=== PATIENT | female | born 1955 | race Caucasian/White ===

== ENCOUNTER 2017-09-07 12:36 | Observation (INO) | payer OTHER ==
[~2017-09-07] VITALS: Ht 152.4 cm; Wt 99.8 kg
[~2017-09-07 12:36] MED LIST: AMLODIPINE10 MG PO; ASPIRIN EC325 MG PO; BENICAR HCT 251 TAB PO; CRESTOR40 M2 PO; CYCLOBENZAPRINE10 M2 PO; FENOFIBRATE145 M1 PO; FIORINAL 325 M1 CAP PO; FLEXERIL10 MG PO; GOOD SENSE ASP325 MG PO; HEARTBURN RELI150 MG PO; HYDROXYCHLOROQ200 M1 PO; ISOSORBIDE MONO30 MG PO; LEVOTHYROXINE100 MC1 PO; MEDROL DOSEPAK1 PAC PO; METFORMIN HCL500 MG PO; METOPROLOL TAR100 MG PO; METOPROLOL TART50 MG PO; NEURONTIN300 M1 PO; OXYCODONE HYDRO10 M1 PO; PERCOCET 325 MG1 TAB PO; PREDNISONE 1 MG1 MG PO; VALIUM5 M1 PO; VALIUM5 MG PO; VALSARTAN320 MG PO; ZETIA10 M1 PO
--- NOTE | 2017-09-07 13:49 | ED EYE COMPLAINT ---
History of Present Illness General Chief Complaint: General Adult Stated Complaint: SIB DR TOLENTINO FOR ADMISSION FOR ?STROKE Source: patient, family, old records, PCP Exam Limitations: no limitations Vital Signs & Intake/Output Vital Signs & Intake/Output Vital Signs Date Time Temp Pulse Resp B/P B/P Pulse O2 O2 Flow FiO2 Mean Ox Delivery Rate 09/07 1248 97.5 85 20 164/82 96 Allergies Coded Allergies: Iodinated Contrast- Oral and IV Dye (IODINATED CONTRAST MEDIA - IV DYE) (HIVES ALL OVER BODY AND SOB PER PT 10/03/15) duloxetine (From CYMBALTA) (NAUSEA 09/07/17) potassium (Intermediate, THROUGH IV, PT REPORTS BURINING GOING THRU IV ) adhesive tape (Mild, REDNESS/IRRITATION AT SITE 10/03/15) Reconcile Medications Amlodipine Besylate 10 MG TABLET 1 TAB PO DAILY HEART (Reported) Aspirin (Aspirin*) 81 MG TAB.CHEW 1 TAB PO DAILY HEART (Reported) Bisacodyl (Dulcolax) 5 MG TABLET.DR 1 TAB PO DAILY contipation (Reported) Cholecalciferol (Vitamin D3) (Vitamin D) 1,000 UNIT TABLET 2 TAB PO DAILY supplement (Reported) Clobetasol Propionate 0.05 % CREAM..G. 1 RITCHIE TOP BID PRN skin (Reported) apply to affected area(s) Ezetimibe (Zetia) 10 MG TABLET 1 TAB PO DAILY hlp (Reported) Fenofibrate Nanocrystallized (Fenofibrate) 145 MG TABLET 1 TAB PO DAILY hlp ( Reported) Gabapentin (Neurontin) 300 MG CAPSULE 2 CAP PO TID pain (Reported) Levothyroxine Sodium 100 MCG TABLET 1 TAB PO DAILY thyriod (Reported) Melatonin 5 MG TABLET 1 TAB PO AT BEDTIME PRN insomnia (Reported) Metoprolol Tartrate (Lopressor) 50 MG TABLET 1 TAB PO BID HEART (Reported) Morphine Sulfate (Ms Contin) 30 MG TABLET.ER 1 TAB PO BIDP pain (Reported) Oxycodone HCl 10 MG TABLET 1 TAB PO 4XDP pain (Reported) Ranitidine HCl (Heartburn Relief) 150 MG TABLET 1 TAB PO DAILY PRN heartburn (Reported) Rosuvastatin Calcium (Crestor) 40 MG TABLET 1 TAB PO DAILY HEART (Reported) Silver Sulfadiazine (Silvadene) 1 % CREAM..G. 1 RITCHIE TOP BID skin (Reported) apply to affected area(s) Valsartan 320 MG TABLET 1 TAB PO DAILY HEART (Reported) Triage Note: PER PT SYMPTOMS STARTED LAST WEEK MAYBE MONDAY WENT TO SEE EYE DR AND MENTIONED DIFF SEEING AT TOP OF RT EYE AND SL OUT OF BOTTOM OF RT EYE, SENT TO RETINAL SPECIALIST, WHO CALLED DR TOLENTINO, PT WAS THEN CONTACTED TO COME IN FOR ADMISSION. Triage Nurses Notes Reviewed? yes HPI: On patient noticed that she was seeing a great cloud in the superior aspect of her right eye. Patient cannot see anything through that cloud. Patient had an appointment with her eye doctor so she waited until that appointment and then saw him. He Center to a retinal specialist. Patient was seen by the retinal specialist today and she was told that she had a stroke and that she needed to see her primary care physician. Patient went to Dr. Tolentino and Dr. Tolentino Center in to the emergency room for admission for further workup for this stroke. Patient has no other neurological findings. She denies any weakness or numbness. There is no difficulty walking or speaking. She states that she occasionally has headaches but that is chronic for her the headaches have not changed in intensity or location. She does not currently have a headache. Past History Travel History Traveled to [place] past 21 day No Medical History Any Pertinent Medical History? see below for history Neurological: NONE EENT: NONE Cardiovascular: CAD (S/P 2 stents), hypertension, hyperlipidemia Respiratory: NONE Gastrointestinal: NONE Hepatic: NONE Renal: NONE Musculoskeletal: chronic back pain, disk herniation Psychiatric: NONE Endocrine: hypothyroidism, BOARDERLINE DM Other Medical Hx: Obesity History of MRSA: No History of VRE: No History of CDIFF: No Surgical History Surgical History: non-contributory Psychosocial History Who do you live with Spouse Services at Home None What is your primary language Citizen Of [place] Tobacco Use: Never used ETOH Use: denies use Illicit Drug Use: denies illicit drug use Family History Hx Contributory? No Review of Systems Review of Systems Constitutional: Reports: no symptoms. Eyes: Reports: see HPI, blurred vision. Ear: Reports: no symptoms. Nose: Reports: no symptoms. Mouth: Reports: no symptoms. Throat: Reports: no symptoms. Respiratory: Reports: no symptoms. Cardiovascular: Reports: no symptoms. GI: Reports: no symptoms. Genitourinary: Reports: no symptoms. Musculoskeletal: Reports: no symptoms. Skin: Reports: no symptoms. Neurological/Psychological: Reports: no symptoms. Hematologic/Endocrine: Reports: no symptoms. Immunologic/Allergic: Reports: no symptoms. All Other Systems: Reviewed and Negative Physical Exam General Appearance: well developed/nourished, mild distress General Inspection: normal inspection Eyelid: normal inspection Conjunctiva/Sclera: normal inspection EOM: intact Pupil: normal accommodation, normal pupil, PERRL General Inspection: normal inspection Conjunctiva/Sclera: normal inspection EOM: intact Pupil: normal accommodation, normal pupil, PERRL Physical Exam Head: atraumatic Nose: normal inspection Mouth/Throat: normal mouth inspection Neck: normal inspection, supple Cardiovascular/Respiratory: normal breath sounds, regular rate/rhythm Neurologic/Psych: awake, alert, oriented x 3, normal mood/affect Skin: intact, normal color, warm/dry Progress Differential Diagnosis: retinal art./v. occlusion, CVA Plan of Care: Orders Procedure Date/time Status Heart Healthy Diet 09/08 B Active LIPID PANEL 09/08 06 Active CBC WITHOUT DIFFERENTIAL 09/08 06 Active BASIC ELECTROLYTES PLUS BUN&CR 09/08 06 Active Heart Healthy Diet 09/07 D Complete Intake & Output 09/07 1655 Active Pathway - chart 09/07 1629 Active House Staff 09/07 1629 Active Code Status 09/07 1629 Active ECHOCARDIOGRAM 09/07 1557 Active [id number] DOPPLER 09/07 1554 Active Patient Data 09/[address] in observation 09/07 1440 Active ED Holding Orders 09/07 1440 Active Vital Signs 09/07 1440 Active Code Status 09/07 1440 Complete URINALYSIS 09/07 1252 Active PARTIAL THROMBOPLASTIN TIME 09/07 1252 Active PROTHROMBIN TIME 09/07 1252 Active COMPREHENSIVE METABOLIC PANEL 09/07 1252 Complete CBC WITHOUT DIFFERENTIAL 09/07 1252 Complete EKG 09/07 1252 Active VTE Mechanical Prophylaxis 09/07 UNK Active Current Medications Sig/Vanesa Start time Last Medication Dose Stop Time Status Admin Aspirin 81 MG DAILY 09/08 1000 AC (Aspirin) Enoxaparin Sodium 40 MG DAILY 09/08 1000 AC (Lovenox) Ezetimibe 10 MG DAILY 09/08 1000 AC (Zetia) Famotidine 20 MG DAILY 09/08 1000 AC (Pepcid) Fenofibrate 145 MG DAILY 09/08 1000 AC (Tricor) Levothyroxine Sodium 0.1 MG DAILY AC 09/08 0700 AC (Synthroid) Gabapentin 600 MG TID 09/07 2199 AC (Neurontin) Metoprolol Tartrate 50 MG BID 09/07 2199 AC (Lopressor) Morphine Sulfate 30 MG BID 09/07 2199 AC (Ms Contin) Oxycodone HCl 10 MG Q6 09/07 1800 AC (Roxicodone) Atorvastatin Calcium 80 MG 1700 09/07 170 AC (Lipitor) Clopidogrel Bisulfate 75 MG DAILY 09/07 161 AC (Plavix) Laboratory Tests 09/07/17 1403: Anion Gap 18 H, Estimated GFR > 60, BUN/Creatinine Ratio 22.2, Glucose 72, Calcium 10.7 H, Total Bilirubin 0.5, AST 50 H, ALT 31, Alkaline Phosphatase 87 , Total Protein 8.0, Albumin 4.7, Globulin 3.3, Albumin/Globulin Ratio 1.4, CBC w Diff NO MAN DIFF REQ, RBC 4.70, MCV 88.4, MCH 28.8, MCHC 32.5 L, RDW 14.2, MPV 9.0, Gran % 70.2, Lymphocytes % 20.0 L, Monocytes % 5.0, Eosinophils % 4.4, Basophils % 0.4, Absolute Granulocytes 4.0, Absolute Lymphocytes 1.1 L, Absolute Monocytes 0.3, Absolute Eosinophils 0.2, Absolute Basophils 0 Diagnostic Imaging: Viewed by Me: Radiology Read, CT Scan. Discussed w/RAD: Radiology Read, CT Scan. Radiology Impression: PATIENT: FREDDY CHAPA PRESENT AGE: 62 PATIENT ACCOUNT NO: [id number] : 54 LOCATION: [facility] ORDERING PHYSICIAN: Tracey Saldivar MD SERVICE DATE: 09/07/17125 EXAM TYPE: CAT - CT HEAD WO IV CONTRAST EXAMINATION: CT HEAD WITHOUT CONTRAST CLINICAL INFORMATION: Possible retinal artery occlusion for one week. Possible CVA. COMPARISON: MRI scan of the brain 12/31/2014. TECHNIQUE: Contiguous axial imaging was performed from the skull base to vertex without intravenous administration of contrast. DLP: 611.74 mGy-cm FINDINGS: There is no evidence of acute intracranial hemorrhage or territorial infarction. No abnormal mass effect or midline shift is seen. Gonzalez to white matter differentiation is well preserved. No extra-axial fluid collections are identified. The ventricles are normal in size. There are areas of low attenuation in the deep white matter which are most consistent with chronic microvascular ischemic changes. There are atheromatous calcifications of the cavernous internal carotid arteries. The orbits appear unremarkable on the available images. The osseous structures and soft tissues are normal. The mastoid air cells and visualized portions of the paranasal sinuses are well aerated. IMPRESSION: 1. There are no acute bleeds or territorial infarcts. 2. There are chronic microvascular ischemic changes. DICTATED BY: Trenton Jose MD DATE/TIME DICTATED:09/07/171422 RELAY SHOP SUPERVISOR :FILIPPO DATE/TIME TRANSCRIBED:09/07/171422 CONFIDENTIAL, DO NOT COPY WITHOUT APPROPRIATE AUTHORIZATION. <Electronically signed in Other Vendor System> SIGNED BY: Trenton Jose MD 09/07/17 1435 Initial ED EKG: NSR, no ST T wave changes Prior EKG: unchanged Departure Departure Disposition: STILL A PATIENT Condition: Stable Clinical Impression Primary Impression: CVA (cerebral vascular accident) Referrals: Noah Tolentino MD (PCP/Family) Departure Forms: Customer Survey General Discharge Information Observation Note Spoke With: Noah Tolentino MD Physician Advisor Notified: JESSICA MYLES,TRACEY Antoine Place Patient In: Non-ED OBS Care Area Rationale for Observation: My rational for observation is as follows [MRI, CAROTID ULTRASOUND, NEUROCONSULT ].
[2017-09-07 14:22] LABS: ABSOLUTE BASOPHIL COUNT 0 /CUMM (0.0-0.2); ABSOLUTE EOSINOPHIL COUNT 0.2 /CUMM (0.0-0.7); ABSOLUTE LYMPH COUNT 1.1 /CUMM (1.2-3.4); ABSOLUTE MONOCYTE COUNT 0.3 /CUMM (0.10-0.60); BASOPHIL % 0.4 % (0.0-2.0); EOSINOPHIL % 4.4 % (0-5); GRANULOCYTE % 70.2 % (42.2-75.2); HEMATOCRIT 41.5 % (37-47); MEAN CORPUSCULAR HGB 28.8 PG (27.0-31.0); MEAN CORPUSCULAR HGB CONC 32.5 G/DL (33.0-37.0); MEAN CORPUSCULAR VOLUME 88.4 FL (81.0-99.0); PLATELET COUNT 202 /CUMM (130-400); RBC DISTRIBUTION WIDTH 14.2 % (11.5-14.5); WHITE BLOOD CELL COUNT 5.6 /CUMM (4.8-10.8)
--- NOTE | 2017-09-07 14:33 | CT SCAN REPORT ---
EXAMINATION: CT HEAD WITHOUT CONTRAST CLINICAL INFORMATION: Possible retinal artery occlusion for one week. Possible CVA. COMPARISON: MRI scan of the brain 12/31/2014. TECHNIQUE: Contiguous axial imaging was performed from the skull base to vertex without intravenous administration of contrast. DLP: 611.74 mGy-cm FINDINGS: There is no evidence of acute intracranial hemorrhage or territorial infarction. No abnormal mass effect or midline shift is seen. Gonzalez to white matter differentiation is well preserved. No extra-axial fluid collections are identified. The ventricles are normal in size. There are areas of low attenuation in the deep white matter which are most consistent with chronic microvascular ischemic changes. There are atheromatous calcifications of the cavernous internal carotid arteries. The orbits appear unremarkable on the available images. The osseous structures and soft tissues are normal. The mastoid air cells and visualized portions of the paranasal sinuses are well aerated. IMPRESSION: 1. There are no acute bleeds or territorial infarcts. 2. There are chronic microvascular ischemic changes.
--- NOTE | 2017-09-07 15:00 | History & Physical ---
Glenn Colin MD,Ami 09/07/17 1500: General Information and HPI MD Statement: I have seen and personally examined FREDDY CHAPA and documented this H&P. The patient is a 62 year old F who presented with a patient stated chief complaint of [change in vision]. Source of Information: patient, family Exam Limitations: no limitations History of Present Illness: Patient is 62 y F with PMH of CAD (complicated with cardiac arrest 12 y ago, s/p stent placement), HTN, HLIP, fibromyalgia, chronic back pain, disk herniation, hypothyrodism, h/o borderline DM (not on any medication) was referred from Dr Scales office for evaluation of vision change. Patient was alert and oriented and was interviewed for history taking. Briefly patient was in usual state of health until last week that she had seen change. Vision change is like a dejesus colored cloud blocking sight and is in superior, internal aspect of right eye as well as a smaller round shape cheesh-na in the lower lateral side. She did not look for immediate medical attention as she had appointment with her eye doctor earlier this week. She was referred to retinal specialist today, she was told she had a stroke and needed to visit her PCP, Dr Scales, who finally sent patient to ED for further evaluation. Patient denied any other neurological symptoms, chest pain, palpitation, heart racing, incontinence or any other symptoms. Patient is pretty independent in activities of daily life. She quited smoking (after communication with Dr Scales she recently quited smoking after several years) or alcohol intake. Patient reported allergy to IV contrast (iodinated) after which she developed hives and shortness of breathing. Allergies/Medications Allergies: Coded Allergies: Iodinated Contrast- Oral and IV Dye (IODINATED CONTRAST MEDIA - IV DYE) (HIVES ALL OVER BODY AND SOB PER PT 10/03/15) duloxetine (From CYMBALTA) (NAUSEA 09/07/17) potassium (Intermediate, THROUGH IV, PT REPORTS BURINING GOING THRU IV ) adhesive tape (Mild, REDNESS/IRRITATION AT SITE 10/03/15) Home Med list Amlodipine Besylate 10 MG TABLET 1 TAB PO DAILY HEART (Reported) Aspirin (Aspirin*) 81 MG TAB.CHEW 1 TAB PO DAILY HEART (Reported) Bisacodyl (Dulcolax) 5 MG TABLET.DR 1 TAB PO DAILY contipation (Reported) Cholecalciferol (Vitamin D3) (Vitamin D) 1,000 UNIT TABLET 2 TAB PO DAILY supplement (Reported) Clobetasol Propionate 0.05 % CREAM..G. 1 RITCHIE TOP BID PRN skin (Reported) apply to affected area(s) Clopidogrel Bisulfate (Plavix) 75 MG TABLET 75 MG PO DAILY STROKE . Ezetimibe (Zetia) 10 MG TABLET 1 TAB PO DAILY hlp (Reported) Fenofibrate Nanocrystallized (Fenofibrate) 145 MG TABLET 1 TAB PO DAILY hlp ( Reported) Gabapentin (Neurontin) 300 MG CAPSULE 2 CAP PO TID pain (Reported) Levothyroxine Sodium 100 MCG TABLET 1 TAB PO DAILY thyriod (Reported) Melatonin 5 MG TABLET 1 TAB PO AT BEDTIME PRN insomnia (Reported) Metoprolol Tartrate (Lopressor) 50 MG TABLET 1 TAB PO BID HEART (Reported) Morphine Sulfate (Ms Contin) 30 MG TABLET.ER 1 TAB PO BIDP pain (Reported) Oxycodone HCl 10 MG TABLET 1 TAB PO 4XDP pain (Reported) Ranitidine HCl (Heartburn Relief) 150 MG TABLET 1 TAB PO DAILY PRN heartburn (Reported) Rosuvastatin Calcium (Crestor) 40 MG TABLET 1 TAB PO DAILY HEART (Reported) Silver Sulfadiazine (Silvadene) 1 % CREAM..G. 1 RITCHIE TOP BID skin (Reported) apply to affected area(s) Valsartan 320 MG TABLET 1 TAB PO DAILY HEART (Reported) Past History Travel History Traveled to [place] past 21 day No Medical History Neurological: NONE EENT: NONE Cardiovascular: CAD (S/P 2 stents), hypertension, hyperlipidemia Respiratory: NONE Gastrointestinal: NONE Hepatic: NONE Renal: NONE Musculoskeletal: chronic back pain, disk herniation Psychiatric: NONE Endocrine: hypothyroidism, BOARDERLINE DM Other Medical Hx: Obesity History of MRSA: No History of VRE: No History of CDIFF: No Surgical History Surgical History: non-contributory Past Family/Social History Psychosocial History Services at Home: None ETOH Use: denies use Illicit Drug Use: denies illicit drug use Functional Ability ADLs Independent: dressing, eating, toileting, bathing. Ambulation: cane IADLs Independent: shopping, housework, finances, food prep, telephone, transportation , medication admin. Review of Systems Review of Systems Constitutional: Reports: see HPI. Exam & Diagnostic Data Last 24 Hrs of Vital Signs/I&O Vital Signs Date Time Temp Pulse Resp B/P B/P Pulse O2 O2 Flow FiO2 Mean Ox Delivery Rate 09/07 1802 148/78 09/07 1728 79 18 187/99 96 Room Air 09/07 1248 97.5 85 20 164/82 96 Physical Exam General Appearance Alert, Oriented X3, Cooperative, No Acute Distress, Obese Skin No Significant Lesion Skin Temp/Moisture Exam: Warm/Dry Sepsis Skin Exam (color): Normal for Ethnicity HEENT Atraumatic, EOMI, Mucous Membr. moist/pink, Could see arterial wall in lower and upper retina suggesting occlusion Neck No JVD Cardiovascular Regular Rate, Normal S1, Normal S2 Lungs Clear to Auscultation Abdomen Soft, No Tenderness Neurological Strength at 5/5 X4 Ext, Cranial Nerves 3-12 NL, Reflexes 2+, pupils reactive to light Extremities No Cyanosis, No Edema Last 24 Hrs of Labs/Beau: Laboratory Tests 09/07/17 1403: Anion Gap 18 H, Estimated GFR > 60, BUN/Creatinine Ratio 22.2, Glucose 72, Calcium 10.7 H, Total Bilirubin 0.5, AST 50 H, ALT 31, Alkaline Phosphatase 87 , Total Protein 8.0, Albumin 4.7, Globulin 3.3, Albumin/Globulin Ratio 1.4, CBC w Diff NO MAN DIFF REQ, RBC 4.70, MCV 88.4, MCH 28.8, MCHC 32.5 L, RDW 14.2, MPV 9.0, Gran % 70.2, Lymphocytes % 20.0 L, Monocytes % 5.0, Eosinophils % 4.4, Basophils % 0.4, Absolute Granulocytes 4.0, Absolute Lymphocytes 1.1 L, Absolute Monocytes 0.3, Absolute Eosinophils 0.2, Absolute Basophils 0 Assessment/Plan Assessment: Patient is 62 y F referred from Dr Scales office evaluation of vision change Obese, history of CAD, no neurologic symptoms PMH of CAD (complicated with cardiac arrest 12 y ago, s/p stent placement), HTN, HLIP, fibromyalgia, chronic back pain, disk herniation, hypothyrodism, h/o borderline DM (not on any medication) VS, Ph Ex at admission: BP 164/82, [place] 85, no fever other insignificant Labs at admission: CBCs insignificant, BEP insignificant Imagings at admission: CXR: No evidence of acute pulmonary disease. Head CT; 1. There are no acute bleeds or territorial infarcts. 2. There are chronic microvascular ischemic changes. Carotid doppler: 1. The right internal carotid artery shows no hemodynamically significant stenosis. 2. The left internal carotid artery shows no hemodynamically significant stenosis. 3. Both vertebral arteries are patent and show antegrade flow. 4. No significant change since 12/30/2014. Head MRI; 1. There are no acute bleeds or infarcts. 2. There are chronic microvascular ischemic changes. Patient was admitted to telemetry floor for management of following conditions: Vision change Branch Retinal artery occlusion/rule out CVA Despite patient had examination suggestive of MARIA but also has several patient has several risk factors for stroke and we will rule out. MRI rule out any ischemic event. Arthrosclerotic disease of carotid artery is the most common reason for retinal 3 occlusion and we performed a carotid Doppler which ruled out significant occlusion. We will do echocardiography to rule out cardiogenic embolic source. - admit to tele floor - neuro checks - vital sign - hold off neuro consult - Cardio consult placed with Dr García - Echo tomorrow Chronic medical conditions: CAD, hypertension, back pain, fibromyalgia, hypothyroidism, borderline DM - Continue home medication - Hb a1c FC heart healthy diet DVt ppx; PHARMACOLOGICAL AND ALPS As Ranked By This Provider Problem List: 1. Vision changes Core Measures/Misc (04/16) Acute Coronary Syndrome ACS Diagnosis: No Congestive Heart Failure Congestive Heart Failure Diagnosis No Cerebrovascular Accident CVA/TIA Diagnosis: No VTE (View Protocol) VTE Risk Factors Age>40 No Mechanical VTE Prophylaxis d/t N/A MechProphylax Ordered No VTE Pharm Prophylaxis d/t NA PharmProphylax ordered Sepsis (View protocol) Sepsis Present: No Jamie Cleary 09/07/17 1700: Resident Review Statement Resident Statement: examined this patient, discussed with marketing pr intern, agreed with marketing pr intern, reviewed images, amended to note Other Findings: patient 62 year old lady with pmh CAD ( [place] with cardiac arrest )12 years ago with 2 stents, hypertension, hyperlipidemia, fibromyalgia, chronic back pain this herniation on narcotics, hypothyroidism, borderline diabetes? Came to the hospital from Dr. Scales's office with chief complaint of vision changes in the right eye cloudy vision. Patient reports that she started noticing cloudy vision on upper right side of her vision mostly on the right eye starting on without any other nausea , vomiting, dizziness, fevers, chills, shakiness, ataxia tingling and numbness. patient does have history of headaches which is chronic. Patient saw her commodity management specialist and retinal specialist today and informed that she had a stroke in her eye and she went to Dr. Scales's office and was referred to here. No chest pain, coughing, recent sick contacts. hx of long time smoker quit 6 months ago vital signs stable with mild elevated SBP Alert and oriented HEENT Atraumatic, PERRL, EOMI Neck Supple, No JVD, No thryomegaly Cardiovascular Regular Rate, Normal S1, Normal S2 Lungs Clear to Auscultation, Normal Air Movement Abdomen Normal Bowel Sounds, Soft, Neurological Normal Speech, Strength at 5/5 X4 Ext, Extremities +1 bilateral edema in legs labs : ag 18, bun 20 ca 10.7 ast 50 MRI of the head, CT of the head, chest x-ray, carotid ultrasound are unremarkable for acute findings assessment renital stroke (artry occultion) hx of HLP hx of back pain on narcotics hx of hypothryoidisim hx of HTN plan obs in telemetry echo in AM with Dr. García check [id number] Continue medications for hyperlipidemia, hypertension, hypothyroidism, back pain c/w aspirin and plavix Patient has chronic elevated calcium Full code, DVT prophylaxis Lovenox and mechanical, Oxycodone for pain, heart healthy diet.
[2017-09-07] MEDS ORDERED: LOPRESSOR50 M1 PO (15:29)
[2017-09-07] MEDS ORDERED: AMLODIPINE BESY10 M1 PO (15:29)
[2017-09-07] MEDS ORDERED: ASPIRIN81 M4 PO (15:30)
[2017-09-07] MEDS ORDERED: VALSARTAN320 M1 PO (15:30)
--- NOTE | 2017-09-07 15:31 | RADIOLOGY REPORT ---
EXAMINATION: XR CHEST CLINICAL INFORMATION: Cough COMPARISON: Multiple priors, most recent from 01/20/2016. TECHNIQUE: 2 views of the chest were obtained. FINDINGS: No focal airspace opacification. Lungs are adequately expanded. Mildly prominent interstitial markings are also seen previously. No pleural effusion or pneumothorax. The cardiomediastinal silhouette is unchanged without cardiomegaly. Partially imaged lumbar fusion hardware again seen. Multilevel degenerative changes of the thoracic spine noted. Partially imaged gastric lap band tubing seen on the lateral view. IMPRESSION: No evidence of acute pulmonary disease.
[2017-09-07] MEDS ORDERED: VITAMIN D1000 UNIT PO (15:40)
[2017-09-07] MEDS ORDERED: CLOBETASOL PROP15 GM TOP (15:42)
[2017-09-07] MEDS ORDERED: MS CONTIN30 M1 PO (15:42)
[2017-09-07] MEDS ORDERED: MELATONIN5 M7 PO (15:42)
[2017-09-07] MEDS ORDERED: OXYCODONE HCL10 M2 PO (15:43)
[2017-09-07] MEDS ORDERED: SILVADENE20 GM TOP (15:43)
[2017-09-07] MEDS ORDERED: DULCOLAX5 M1 PO (15:44)
--- NOTE | 2017-09-07 16:49 | MRI REPORT ---
EXAMINATION: MR BRAIN WITHOUT CONTRAST CLINICAL INFORMATION: Blurry vision. Assess for stroke. COMPARISON: CT scan of the head obtained earlier 09/07/2017 and MRI scan of the brain 12/31/2014. TECHNIQUE: MRI of the brain without contrast was obtained using routine sequences. FINDINGS: No diffusion abnormalities are identified to suggest an acute or subacute infarct. No mass effect or midline shift is seen. The ventricles are normal in size. There are scattered foci of T2 and FLAIR hyperintensity in the periventricular and subcortical white matter and in the reuben, consistent with chronic microvascular ischemic disease, similar compared to the prior study. No extra-axial fluid collections are seen. The brainstem and cerebellum are normal. No pathologic magnetic susceptibility artifact is identified on the gradient refocused acquisition. The craniovertebral junction, marrow signal, and midline structures are normal. The major intracranial flow-voids at the level of the kenait[place] of [place] are preserved. The dural venous sinus flow-voids are maintained. The mastoid air cells and paranasal sinuses are well-aerated. IMPRESSION: 1. There are no acute bleeds or infarcts. 2. There are chronic microvascular ischemic changes.
--- NOTE | 2017-09-07 17:17 | ULTRASOUND REPORT ---
EXAMINATION: BILATERAL DUPLEX CAROTID ULTRASOUND CLINICAL INDICATION: Blurry vision. COMPARISON: Carotid ultrasound done on 12/30/2014. TECHNIQUE: TECHNIQUE: Real-time ultrasound and Doppler techniques (integrating B-mode 2D vascular images, Doppler spectral analysis and color flow Doppler imaging) were utilized to interrogate the extracranial carotid and vertebral arteries bilaterally. The degree of stenosis determined by criteria similar to NASCET. . FINDINGS: On the RIGHT, there is focal atherosclerotic plaques are noted within the distal right common carotid artery and origin of both right internal and external carotid arteries.In the distal CCA, the peak systolic velocity is 61 cm/sec. In the proximal ICA, the peak systolic velocity is 88.5 cm/sec, and the end diastolic velocity is 25 cm/sec. The ICA/CCA ratio is 1.45. On the LEFT, there is focal atherosclerotic plaques are noted at distal common carotid, and origin, proximal part of both internal and external carotid arteries.In the distal CCA, the peak systolic velocity is 96 cm/sec. In the proximal ICA, the peak systolic velocity is 99 cm/sec, and the end diastolic velocity is 30 cm/sec. The ICA/CCA ratio is 1.03. The vertebral arteries show antegrade flow with normal waveforms bilaterally. No significant change since prior study. IMPRESSION: 1. The right internal carotid artery shows no hemodynamically significant stenosis. 2. The left internal carotid artery shows no hemodynamically significant stenosis. 3. Both vertebral arteries are patent and show antegrade flow. 4. No significant change since 12/30/2014.
--- NOTE | 2017-09-07 18:41 | PN- Att Addend ---
Attending Addendum Attending Brief Note Full note as per interns note This is a 62-year-old lady with history of ischemic heart disease with previous stent with no active ischemic heart, hypertension, hyperlipidemia, morbid obesity, hypothyroidism on appropriate supplementation, previous history of multiple lumbar surgeries with fusion with chronic pain syndrome in the past with severe backache, previous history of [place] with V. fib arrest now with no active coronary issues, now comes in with * Acute stroke with retinal artery branch occlusion consistant with an embolic stroke * Previous History of significant smoking with all the risks for atheroembolic disease * IHD with previous stents with previous vifib arrest, now stable and recent stress test neg for active ischemia * CHronic low back pain with severe lumbar disc disease with multiple surg in the past on high dose narcotics now stable * Hypothyroidism/hypertension/hyperlipidemia appears to be stable * Ischemic heart disease appears to be stable * SIg Lizeth on cpap and compliant * Morbid obesity * Small airway disease * Rule out inflammatory process * OSteopenia with vit d def with previous work up for hypercalcemia neg with normal pth REC Admit to rule out anyother process like afib Neuro eval frequently TElemetry Cont all out pt meds Start plavix with low dose asprin Keep bp around 10 Start arb (pt on high dose arb aswell at home) Rule out afib will follow
[2017-09-07 18:46] VITALS: BP 146/82
[2017-09-07 23:00] VITALS: BP 140/78
[2017-09-08 06:30] VITALS: BP 152/74
--- NOTE | 2017-09-08 07:44 | ECHOCARDIOGRAM REPORT ---
FREDDY CHAPA Age: 62 : 1955 Gender: F Exam Date: 09/07/2017 19:04 Exam Location: [place] Ht (in): 65 Wt (lb): 140 BSA: 1.71 BP: 146 / 82 Ordering Physician: Jamie Cleary MD Referring Physician: Dex García MD Technologist: Marina Walker [facility] Room Number: 179-01 Indications: STROKE Rhythm: Sinus Technical Quality: Fair FINDINGS Left Ventricle Normal size left ventricle. Left ventricular wall thickness increased. Normal left ventricular ejection fraction estimated at 60-65%. Right Ventricle Right ventricle not well visualized, grossly normal. Right Atrium Normal right atrial size. Left Atrium Left atrial dilatation. Mitral Valve Mitral valve thickened. Moderate mitral annular calcification. Trace to mild mitral regurgitation. Aortic Valve Trileaflet aortic valve. Diffuse thickening (sclerosis) of the aortic valve cusps without reduced excursion. No aortic stenosis. No aortic regurgitation. Tricuspid Valve Tricuspid valve not well visualized, grossly normal. Trace tricuspid regurgitation. Pulmonic Valve Pulmonic valve not well visualized, grossly normal. Pericardium No pericardial effusion. Great Vessels Normal size aortic root and proximal ascending aorta. CONCLUSIONS 1. This was a technically difficult study 2. Mild aortic sclerosis is present in a trileaflet aortic valve with no valvular stenosis or insufficiency. 3. Thickening of the mitral leaflets is present with mild to moderate annular calcification and minimal to mild mitral insufficiency with left atrial enlargement. 4. There is no significant pericardial fluid detected on this study. 5. The left ventricular chamber size is normal. Mild concentric hypertrophy is present. The ejection fraction is normal. There are no obvious resting wall motion abnormalities. 6. Minimal tricuspid insufficiency is present. The right ventricular systolic pressure was not accurately assessed. 7. Lipomatous atrial septal hypertrophy is noted. 8. A circumferential echolucency is noted within the body of the liver measuring 5.5 x 4.2 cm. This is most consistent with a hepatic cyst. Further evaluation is recommended if clinically indicated. 9. No definite embolic sources were detected on the study. If clinically indicated a transesophageal echocardiogram would better exclude potential embolic sources. Dex García M.D. (Electronically Signed) Final Date: 08 September 2017 07:44 MEASUREMENTS (Male / Female) Normal Values 2D ECHO LV Diastolic Diameter PLAX 4.5 cm 4.2 - 5.9 / 3.9 - 5.3 cm LV Systolic Diameter PLAX 2.9 cm 2.1 - 4.0 cm LV Fractional Shortening PLAX 35.6 % 25 - 46 % LV Ejection Fraction 2D Teich 65.2 % IVS Diastolic Thickness 1.2 cm LVPW Diastolic Thickness 1.3 cm LV Relative Wall Thickness 0.6 RV Internal Dim ED PLAX 2.3 cm 1.9 - 3.8 cm LVOT Diameter 2.0 cm Aortic Root Diameter 2.5 cm LA Systolic Diameter LX 4.3 cm 3.0 - 4.0 / 2.7 - 3.8 cm LA Volume 36.0 cm 18 - 58 / 22 - 52 cm Ascending Aorta Diameter 3.0 cm DOPPLER AV Peak Velocity 135.0 cm/s AV Peak Gradient 7.3 mmHg AV Mean Velocity 84.2 cm/s AV Mean Gradient 3.0 mmHg AV Velocity Time Integral 26.9 cm LVOT Peak Velocity 118.0 cm/s LVOT Peak Gradient 5.6 mmHg LVOT Mean Velocity 76.3 cm/s LVOT Mean Gradient 3.0 mmHg LVOT Velocity Time Integral 28.8 cm LVOT Stroke Volume 90.5 cm AV Area Cont Eq vti 3.4 cm AV Area Cont Eq pk 2.7 cm MV Peak Velocity 95.1 cm/s MV Peak Gradient 3.6 mmHg MV Mean Velocity 67.3 cm/s MV Mean Gradient 2.0 mmHg Mitral E Point Velocity 74.0 cm/s Mitral A Point Velocity 72.6 cm/s Mitral E to A Ratio 1.0 MV PHT Velocity 99.1 cm/s MV Deceleration Bent 395.0 cm/s MV Pressure Half Time 75.3 ms MV Area PHT 2.9 cm MV Deceleration Time 254.0 ms TR Peak Velocity 107.0 cm/s TR Peak Gradient 4.6 mmHg Right Atrial Pressure 5.0 mmHg Pulmonary Artery Systolic Pressu 9.6 mmHg Right Ventricular Systolic Press 9.6 mmHg PV Peak Velocity 116.0 cm/s PV Peak Gradient 5.4 mmHg PV Mean Velocity 66.4 cm/s PV Mean Gradient 2.0 mmHg PV Velocity Time Integral 21.4 cm LV E' Lateral Velocity 8.2 cm/s Mitral E to LV E' Lateral Ratio 9.0 LV E' Septal Velocity 7.3 cm/s Mitral E to LV E' Septal Ratio 10.1
[2017-09-08 08:11] LABS: ABSOLUTE BASOPHIL COUNT 0 /CUMM (0.0-0.2); ABSOLUTE EOSINOPHIL COUNT 0.2 /CUMM (0.0-0.7); ABSOLUTE GRANULOCYTE CT 3.5 /CUMM (1.4-6.5); ABSOLUTE LYMPH COUNT 1.1 /CUMM (1.2-3.4); ABSOLUTE MONOCYTE COUNT 0.4 /CUMM (0.10-0.60); BASOPHIL % 0.5 % (0.0-2.0); EOSINOPHIL % 3.9 % (0-5); GRANULOCYTE % 67.4 % (42.2-75.2); HEMATOCRIT 36.8 % (37-47); MEAN CORPUSCULAR HGB 29.6 PG (27.0-31.0); MEAN CORPUSCULAR HGB CONC 33.9 G/DL (33.0-37.0); MEAN CORPUSCULAR VOLUME 87.3 FL (81.0-99.0); MEAN PLATELET VOLUME 9.1 FL (7.4-10.4); PLATELET COUNT 210 /CUMM (130-400); RBC DISTRIBUTION WIDTH 14.2 % (11.5-14.5); RED BLOOD CELL CT 4.22 /CUMM (4.20-5.40); WHITE BLOOD CELL COUNT 5.1 /CUMM (4.8-10.8)
--- NOTE | 2017-09-08 08:28 | Cons- Cardiology ---
General Information and HPI Consulting Request Date of Consult: 09/08/17 Requested By: Loyda MYLES,Noah Mann Reason for Consult: CVA/retinal artery branch occlusion History of Present Illness: The patient is a 62-year-old female with history of coronary artery disease, remote history of cardiac arrest, coronary stent placement, hypertension, and borderline diabetes mellitus who presented with visual change. She was evaluated by a retinal specialist and was found to have occlusion of a retinal branch artery. She is admitted for evaluation of possible CVA. She reports that she is feeling well from a cardiac standpoint. No chest pain. No palpitations. No syncope. No orthopnea. No lightheadedness or dizziness. No nausea or vomiting. She complained of a dejesus cloud blocking the vision in the superior internal aspect of the right eye with a second smaller visual defect. These changes occurred 1 week ago. Allergies/Medications Allergies: Coded Allergies: Iodinated Contrast- Oral and IV Dye (IODINATED CONTRAST MEDIA - IV DYE) (HIVES ALL OVER BODY AND SOB PER PT 10/03/15) duloxetine (From CYMBALTA) (NAUSEA 09/07/17) potassium (Intermediate, THROUGH IV, PT REPORTS BURINING GOING THRU IV ) adhesive tape (Mild, REDNESS/IRRITATION AT SITE 10/03/15) Home Med List: Amlodipine Besylate 10 MG TABLET 1 TAB PO DAILY HEART (Reported) Aspirin (Aspirin*) 81 MG TAB.CHEW 1 TAB PO DAILY HEART (Reported) Bisacodyl (Dulcolax) 5 MG TABLET.DR 1 TAB PO DAILY contipation (Reported) Cholecalciferol (Vitamin D3) (Vitamin D) 1,000 UNIT TABLET 2 TAB PO DAILY supplement (Reported) Clobetasol Propionate 0.05 % CREAM..G. 1 RITCHIE TOP BID PRN skin (Reported) apply to affected area(s) Ezetimibe (Zetia) 10 MG TABLET 1 TAB PO DAILY hlp (Reported) Fenofibrate Nanocrystallized (Fenofibrate) 145 MG TABLET 1 TAB PO DAILY hlp ( Reported) Gabapentin (Neurontin) 300 MG CAPSULE 2 CAP PO TID pain (Reported) Levothyroxine Sodium 100 MCG TABLET 1 TAB PO DAILY thyriod (Reported) Melatonin 5 MG TABLET 1 TAB PO AT BEDTIME PRN insomnia (Reported) Metoprolol Tartrate (Lopressor) 50 MG TABLET 1 TAB PO BID HEART (Reported) Morphine Sulfate (Ms Contin) 30 MG TABLET.ER 1 TAB PO BIDP pain (Reported) Oxycodone HCl 10 MG TABLET 1 TAB PO 4XDP pain (Reported) Ranitidine HCl (Heartburn Relief) 150 MG TABLET 1 TAB PO DAILY PRN heartburn (Reported) Rosuvastatin Calcium (Crestor) 40 MG TABLET 1 TAB PO DAILY HEART (Reported) Silver Sulfadiazine (Silvadene) 1 % CREAM..G. 1 RITCHIE TOP BID skin (Reported) apply to affected area(s) Valsartan 320 MG TABLET 1 TAB PO DAILY HEART (Reported) Current Medications: Current Medications Sig/Vanesa Start time Last Medication Dose Route Stop Time Status Admin Amlodipine Besylate 10 MG DAILY 09/08 1000 CAN PO Aspirin 81 MG DAILY 09/08 1000 AC PO Atorvastatin Calcium 80 MG 1700 09/07 1700 AC 09/07 PO 2118 Clopidogrel Bisulfate 0 .STK-MED ONE 09/07 1755 DC PO Clopidogrel Bisulfate 75 MG DAILY 09/07 1615 AC PO Enoxaparin Sodium 40 MG DAILY 09/08 1000 AC SC Ezetimibe 10 MG DAILY 09/08 1000 DC PO Ezetimibe 10 MG 1700 09/07 1745 AC 09/07 PO 2000 Famotidine 20 MG DAILY 09/08 1000 AC PO Fenofibrate 145 MG DAILY 09/08 1000 DC PO Fenofibrate 145 MG 1700 09/07 1745 AC 09/07 PO 2000 Gabapentin 600 MG TID 09/07 2200 AC 09/07 PO 2118 Levothyroxine Sodium 0.1 MG DAILY AC 09/08 0700 AC 09/08 PO 0649 Losartan Potassium 100 MG DAILY 09/08 1000 CAN PO Losartan Potassium 100 MG DAILY 09/08 1000 AC PO Magnesium Oxide 400 MG ONCE ONE 09/07 2215 DC 09/07 PO 09/07 2216 2334 Melatonin 5 MG AT BEDTIME 09/07 2200 AC 09/07 PO 2334 Metoprolol Tartrate 50 MG BID 09/07 2200 AC 09/07 PO 2118 Morphine Sulfate 30 MG BID 09/07 2200 AC 09/07 PO 2118 Oxycodone HCl 10 MG Q6 09/07 1800 AC 09/08 PO 0649 Review of Systems Review of Systems: No fever. No chills. No rash. No tremor. All other systems were reviewed, and were noted to be negative. Past History Travel History Traveled to [place] past 21 day No Medical History Blood Transfusion Hx: No Neurological: migraine, vertigo EENT: NONE Cardiovascular: CAD (S/P 2 stents), hypertension, hyperlipidemia, NE 12 YEARS AGO 2 STENTS Respiratory: obstructive sleep apnea Gastrointestinal: GERD, umbilical hernia, SBO 13 YRS AGGO ABDOMINAL HERNIA Hepatic: "FATTY LIVER" Renal: NONE Musculoskeletal: chronic back pain, disk herniation, osteoarthritis, sciatica Psychiatric: NONE Endocrine: hypothyroidism, obesity, vitamin D deficiency, BOARDERLINE DM Blood Disorders: NONE Cancer(s): basal cell carcinoma 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 Ambulation: cane IADLs Independent: shopping, housework, finances, food prep, telephone, transportation , medication admin. Exam & Diagnostic Data Vital Signs and I&O Vital Signs Date Time Temp Pulse Resp B/P B/P Pulse O2 O2 Flow FiO2 Mean Ox Delivery Rate 09/08 0630 98.6 68 20 152/74 95 09/08 0000 96 CPAP 09/07 2300 98.2 65 20 140/78 92 09/07 2118 78 140/90 09/07 2019 CPAP 09/07 1846 98.6 75 20 146/82 91 Room Air 09/07 1802 148/78 09/07 1728 79 18 187/99 96 Room Air 09/07 1248 97.5 85 20 164/82 96 Intake & Output 09/08 1600 09/08 0800 09/08 0000 09/07 1600 09/07 0800 09/07 0000 Intake Total 120 Output Total 450 Balance -330 Intake, Oral 120 Output, Urine 450 Patient 220 lb Weight Physical Exam: Gen: The patient is in no acute distress HEENT: Normal nose, ears, and oropharynx. Pupils equal bilaterally. Conjunctiva normal. Neck: Supple with no JVD, no masses, and no thyromegaly Lungs: Clear to auscultation with normal respiratory effort Heart: RRR, S1, S2, no murmurs. No peripheral edema, 2+ pulses in the lower extremities bilaterally Abdomen: Soft, nontender, no masses. No hepatomegaly. No splenomegaly Extremities: No clubbing or cyanosis. Normal muscle strength in the upper and lower extremities Skin: Normal skin turgor with no skin ulcers or lesions noted. Neuro: Cranial nerves intact. Sensation intact Psych: Alert and oriented - 3 with appropriate affect Labs/Beau Results: Laboratory Tests 09/08 09/07 0633 1403 Chemistry Sodium (137 - 145 mmol/L) Pending 144 Potassium (3.5 - 5.1 mmol/L) Pending 4.7 Chloride (98 - 107 mmol/L) Pending 100 Carbon Dioxide (22 - 30 mmol/L) Pending 26 Anion Gap (5 - 16) Pending 18 H BUN (7 - 17 mg/dL) Pending 20 H Creatinine (0.5 - 1.0 mg/dL) Pending 0.9 Estimated GFR (>60 ml/min) > 60 BUN/Creatinine Ratio (7 - 25 %) Pending 22.2 Glucose (65 - 99 mg/dL) 72 Hemoglobin A1c (4.2 - 5.8 %) Pending Calcium (8.4 - 10.2 mg/dL) 10.7 H Phosphorus (2.5 - 4.5 mg/dL) 4.2 Magnesium (1.6 - 2.3 mg/dL) 1.8 Total Bilirubin (0.2 - 1.3 mg/dL) 0.5 AST (14 - 36 U/L) 50 H ALT (9 - 52 U/L) 31 Alkaline Phosphatase (<127 U/L) 87 Total Protein (6.3 - 8.2 g/dL) 8.0 Albumin (3.5 - 5.0 g/dL) 4.7 Globulin (1.9 - 4.2 gm/dL) 3.3 Albumin/Globulin Ratio (1.1 - 2.2 %) 1.4 Triglycerides Pending Cholesterol Pending LDL Cholesterol, Calc Pending HDL Cholesterol Pending Cholesterol/HDL Ratio Pending Hematology CBC w Diff NO MAN DIFF REQ NO MAN DIFF REQ WBC (4.8 - 10.8 /CUMM) 5.1 5.6 RBC (4.20 - 5.40 /CUMM) 4.22 4.70 Hgb (12.0 - 16.0 G/DL) 12.5 13.5 Hct (37 - 47 %) 36.8 L 41.5 MCV (81.0 - 99.0 FL) 87.3 88.4 MCH (27.0 - 31.0 PG) 29.6 28.8 MCHC (33.0 - 37.0 G/DL) 33.9 32.5 L RDW (11.5 - 14.5 %) 14.2 14.2 Plt Count (130 - 400 /CUMM) 210 202 MPV (7.4 - 10.4 FL) 9.1 9.0 Gran % (42.2 - 75.2 %) 67.4 70.2 Lymphocytes % (20.5 - 51.1 %) 20.8 20.0 L Monocytes % (1.7 - 9.3 %) 7.4 5.0 Eosinophils % (0 - 5 %) 3.9 4.4 Basophils % (0.0 - 2.0 %) 0.5 0.4 Absolute Granulocytes (1.4 - 6.5 /CUMM) 3.5 4.0 Absolute Lymphocytes (1.2 - 3.4 /CUMM) 1.1 L 1.1 L Absolute Monocytes (0.10 - 0.60 /CUMM) 0.4 0.3 Absolute Eosinophils (0.0 - 0.7 /CUMM) 0.2 0.2 Absolute Basophils (0.0 - 0.2 /CUMM) 0 0 /08 1252 Urines Urine Color Cancelled Urine Clarity Cancelled Urine pH Cancelled Ur Specific [place] Cancelled Urine Protein Cancelled Urine Ketones Cancelled Urine Nitrite Cancelled Urine Bilirubin Cancelled Urine Urobilinogen Cancelled Ur Leukocyte Esterase Cancelled Ur Microscopic Cancelled Urine Hemoglobin Cancelled Urine Glucose Cancelled Diagnostic Data EKG Results EKG tracing reviewed, and reveals normal sinus rhythm at 68, normal EKG CXR Results Negative Other Results Carotid Doppler study: 1. The right internal carotid artery shows no hemodynamically significant stenosis. 2. The left internal carotid artery shows no hemodynamically significant stenosis. 3. Both vertebral arteries are patent and show antegrade flow. 4. No significant change since 12/30/2014. MRI head: 1. There are no acute bleeds or infarcts. 2. There are chronic microvascular ischemic changes. Echocardiogram 09/08/17: 1. This was a technically difficult study 2. Mild aortic sclerosis is present in a trileaflet aortic valve with no valvular stenosis or insufficiency. 3. Thickening of the mitral leaflets is present with mild to moderate annular calcification and minimal to mild mitral insufficiency with left atrial enlargement. 4. There is no significant pericardial fluid detected on this study. 5. The left ventricular chamber size is normal. Mild concentric hypertrophy is present. The ejection fraction is normal. There are no obvious resting wall motion abnormalities. 6. Minimal tricuspid insufficiency is present. The right ventricular systolic pressure was not accurately assessed. 7. Lipomatous atrial septal hypertrophy is noted. 8. A circumferential echolucency is noted within the body of the liver measuring 5.5 x 4.2 cm. This is most consistent with a hepatic cyst. Further evaluation is recommended if clinically indicated. 9. No definite embolic sources were detected on the study. If clinically indicated a transesophageal echocardiogram would better exclude potential embolic sources. Assessment/Plan Assessment/Plan Assessment: 1. CAD, status post coronary stents 2. Remote history of cardiac arrest 3. Hypertension 4. Acute occlusion of retinal branch artery 5. No cardiac source of embolus seen on echocardiogram 6. Incidental finding of 5 cm liver cyst on echocardiogram Plan: * Continue aspirin and Plavix * Continue statin * Monitor for atrial fibrillation on telemetry while in the hospital. Longer term monitoring could be considered as an outpatient to rule out atrial fibrillation as a cause of the embolism * No cardiac source of embolus seen on transthoracic echocardiogram. NISHANT could be considered at some point if no etiology for the retinal branch artery occlusion is found. Consult Acknowledgment - Thank you for your consult request.
[2017-09-08 09:29] VITALS: BP 140/72
--- NOTE | 2017-09-08 09:57 | PN- Pulmonary ---
Subjective HPI/Critical Care Issues: DOing ok now new issues no new stroke symptoms no head ache Objective Current Medications: Current Medications Sig/Vanesa Start time Last Medication Dose Route Stop Time Status Admin Amlodipine Besylate 10 MG DAILY 09/08 1000 CAN PO Aspirin 81 MG DAILY 09/08 1000 AC 09/08 PO 0929 Atorvastatin Calcium 80 MG 1700 09/07 1700 AC 09/07 PO 2118 Clopidogrel Bisulfate 0 .STK-MED ONE 09/07 1755 DC PO Clopidogrel Bisulfate 75 MG DAILY 09/07 1615 AC 09/08 PO 0929 Enoxaparin Sodium 40 MG DAILY 09/08 1000 AC 09/08 SC 0928 Ezetimibe 10 MG DAILY 09/08 1000 DC PO Ezetimibe 10 MG 1700 09/07 1745 AC 09/07 PO 2000 Famotidine 20 MG DAILY 09/08 1000 AC 09/08 PO 0929 Fenofibrate 145 MG DAILY 09/08 1000 DC PO Fenofibrate 145 MG 1700 09/07 1745 AC 09/07 PO 2000 Gabapentin 600 MG TID 09/07 2200 AC 09/08 PO 0929 Levothyroxine Sodium 0.1 MG DAILY AC 09/08 0700 AC 09/08 PO 0649 Losartan Potassium 100 MG DAILY 09/08 1000 CAN PO Losartan Potassium 100 MG DAILY 09/08 1000 AC 09/08 PO 0929 Magnesium Oxide 400 MG ONCE ONE 09/07 2215 DC 09/07 PO 09/07 2216 2334 Melatonin 5 MG AT BEDTIME 09/07 2200 AC 09/07 PO 2334 Metoprolol Tartrate 50 MG BID 09/07 2200 AC 09/08 PO 0929 Morphine Sulfate 30 MG BID 09/07 2200 AC 09/08 PO 0928 Oxycodone HCl 10 MG Q6 09/07 1800 AC 09/08 PO 0649 Vital Signs & I&O Last 24 Hrs of Vitals and I&O: Vital Signs Date Time Temp Pulse Resp B/P B/P Pulse O2 O2 Flow FiO2 Mean Ox Delivery Rate 09/08 928 140/72 09/08 928 140/68 09/08 629 98.6 68 20 152/74 95 09/08 0000 96 CPAP 09/07 2299 98.2 65 20 140/78 92 09/07 2117 78 140/90 09/07 2018 CPAP 09/07 1845 98.6 75 20 146/82 91 Room Air 09/07 1802 148/78 09/07 1728 79 18 187/99 96 Room Air 09/07 1248 97.5 85 20 164/82 96 Intake & Output 09/08 1600 09/08 0800 09/08 0000 Intake Total 200 120 Output Total 450 Balance 200 -330 Intake, Oral 200 120 Output, Urine 450 Patient 220 lb Weight Impression/Plan Impression/Plan Impression/Plan: This is a 62-year-old lady with history of ischemic heart disease with previous stent with no active ischemic heart, hypertension, hyperlipidemia, morbid obesity, hypothyroidism on appropriate supplementation, previous history of multiple lumbar surgeries with fusion with chronic pain syndrome in the past with severe backache, previous history of [place] with V. fib arrest now with no active coronary issues, now comes in with * Acute stroke with retinal artery branch occlusion consistant with an embolic stroke, now no other area of stroke noted * Previous History of significant smoking with all the risks for atheroembolic disease * IHD with previous stents with previous vifib arrest, now stable and recent stress test neg for active ischemia * CHronic low back pain with severe lumbar disc disease with multiple surg in the past on high dose narcotics now stable * Hypothyroidism/hypertension/hyperlipidemia appears to be stable * Ischemic heart disease appears to be stable * SIg Lizeth on cpap and compliant * Morbid obesity * Small airway disease * Rule out inflammatory process * OSteopenia with vit d def with previous work up for hypercalcemia neg with normal pth REC No afib noted so far OK to dc later today Ask cardio if she needs to go home on holter or other monitoring device Resume all out pt meds OK to dc later today on home meds with plavix 75 added to asa 81 will follow as out pt
--- NOTE | 2017-09-08 13:00 | Patient Discharge Instructions ---
Discharge Instructions General Discharge Information You were seen/treated for: renital stroke Special Instructions: -Please follow-up with your primary care provider within 7 days after discharge. -His follow-up with your molding press operator within 1 week for possible holter monitoring. -We have made changes to your home medications, please read the instructions carefully. -Please come back to the hospital if your symptoms got worse. Diet Recommended Diet: Heart Healthy Activity Full Activity/No Limits: Yes (as tolerated) Acute Coronary Syndrome Inclusion Criteria At DC or during hospital stay patient has or had the following: ACS DIAGNOSIS No Discharge Core Measures Meds if any: Prescribed or Continued at Discharge Meds if any: NOT Prescribed or Continued at Discharge Congestive Heart Failure Inclusion Criteria At DC or during hospital stay patient has or had the following: CHF DIAGNOSIS No Discharge Core Measures Meds if any: Prescribed or Continued at Discharge Meds if any: NOT Prescribed or Continued at Discharge Cerebrovascular accident Inclusion Criteria At DC or during hospital stay patient has or had the following: CVA/TIA Diagnosis No Discharge Core Measures Meds if any: Prescribed or Continued at Discharge Meds if any: NOT Prescribed or Continued at Discharge Venous thromboembolism Inclusion Criteria VTE Diagnosis No VTE Type NONE VTE Confirmed by (Test) NONE Discharge Core Measures - Per Current guidelines, there needs to be overlap - treatment for the first 5 days of Warfarin therapy. - If discharged on Warfarin prior to 5 days of - overlap therapy, the patient will need to be - assessed for post discharge needs including - *Post discharge parental anticoagulation - *Warfarin and/or parental anticoagulation education - *Follow up date to check INR post discharge At least 5 days overlap therapy as Inpatient No Meds if any: Prescribed or Continued at Discharge Note: Overlap Therapy is Warfarin and Anticoagulant Meds if any: NOT Prescribed or Continued at Discharge
[2017-09-08] MEDS ORDERED: PLAVIX75 M1 PO ×2 (13:14→13:31)
--- NOTE | 2017-09-08 13:32 | PN-Observation ---
Observation Note Observation Note _ I have personally examined FREDDY CHAPA. her disposition is uncertain at this time. Before a determination can be made, she requires continued observation for the following reasons [Vision change]. Assessment/Plan Assessment: Patient is 62 y F referred from Dr Scales office evaluation of vision change Obese, history of CAD, no neurologic symptoms PMH of CAD (complicated with cardiac arrest 12 y ago, s/p stent placement), HTN, HLIP, fibromyalgia, chronic back pain, disk herniation, hypothyrodism, h/o borderline DM (not on any medication) VS, Ph Ex at admission: BP 164/82, OR 85, no fever other insignificant Labs at admission: CBCs insignificant, BEP insignificant Imagings at admission: CXR: No evidence of acute pulmonary disease. Head CT; 1. There are no acute bleeds or territorial infarcts. 2. There are chronic microvascular ischemic changes. Carotid doppler: 1. The right internal carotid artery shows no hemodynamically significant stenosis. 2. The left internal carotid artery shows no hemodynamically significant stenosis. 3. Both vertebral arteries are patent and show antegrade flow. 4. No significant change since 12/30/2014. Head MRI; 1. There are no acute bleeds or infarcts. 2. There are chronic microvascular ischemic changes. Patient was admitted to telemetry floor for management of following conditions: Vision change Branch Retinal artery occlusion/rule out CVA Despite patient had examination suggestive of MARIA but also has several patient has several risk factors for stroke and we will rule out. MRI ruled out any ischemic event. Arthrosclerotic disease of carotid artery is the most common reason for retinal 3 occlusion and we performed a carotid Doppler which ruled out significant occlusion. We did echocardiography to rule out cardiogenic embolic source: 1. This was a technically difficult study 2. Mild aortic sclerosis is present in a trileaflet aortic valve with no valvular stenosis or insufficiency. 3. Thickening of the mitral leaflets is present with mild to moderate annular calcification and minimal to mild mitral insufficiency with left atrial enlargement. 4. There is no significant pericardial fluid detected on this study. 5. The left ventricular chamber size is normal. Mild concentric hypertrophy is present. The ejection fraction is normal. There are no obvious resting wall motion abnormalities. 6. Minimal tricuspid insufficiency is present. The right ventricular systolic pressure was not accurately assessed. 7. Lipomatous atrial septal hypertrophy is noted. 8. A circumferential echolucency is noted within the body of the liver measuring 5.5 x 4.2 cm. This is most consistent with a hepatic cyst. Further evaluation is recommended if clinically indicated. 9. No definite embolic sources were detected on the study. If clinically indicated a transesophageal echocardiogram would better exclude potential embolic sources. Patient was admitted to tele floor and was monitored, no arythmic event was noted. Patient was discharged with instructions to follow with Dr García for NISHANT and possible monitor. Chronic medical conditions: CAD, hypertension, back pain, fibromyalgia, hypothyroidism, borderline DM - Continue home medication - Hb a1c was 5.1 FC heart healthy diet DVt ppx; PHARMACOLOGICAL AND ALPS Patient was discharged with instruction to follow with PCP and manager story in outpatient for NISHANT and possible monitoring. Oral plavix was continued in outpatient. Problem List: 1. Branch retinal artery occlusion Plan: as noted above DVT/Prophylaxis: mechanical, pharmacological Discharge Plan Discharge Disposition: home Stable for Discharge? Yes Anticipated Discharge (Day): today Subjective Follow-up For: MARTHAO Tele-Events Since Last Visit: SB 52-56 Review of Systems Constitutional: Reports: see HPI. Objective Last 24 Hrs of Vital Signs/I&O Vital Signs Date Time Temp Pulse Resp B/P B/P Pulse O2 O2 Flow FiO2 Mean Ox Delivery Rate 09/08 928 140/72 09/08 0929 140/68 09/08 0630 98.6 68 20 152/74 95 / 0000 96 CPAP 09/07 2300 98.2 65 20 140/78 92 09/07 2118 78 140/90 09/07 2018 CPAP 09/07 1846 98.6 75 20 146/82 91 Room Air 09/07 1802 148/78 09/07 1728 79 18 187/99 96 Room Air Intake & Output 09/08 1600 09/08 0800 09/08 0000 Intake Total 200 120 Output Total 450 Balance 200 -330 Intake, Oral 200 120 Output, Urine 450 Patient 220 lb Weight Physical Exam General Appearance: Alert, Oriented X3, Cooperative, No Acute Distress, Obese Skin: No Significant Lesion Skin Temp/Moisture Exam: Warm/Dry Sepsis Skin Exam (color): Normal for Ethnicity HEENT: Atraumatic, EOMI, Mucous Membr. moist/pink, No change in vision compared to yesterday Cardiovascular: Regular Rate, Normal S1, Normal S2 Lungs: Clear to Auscultation Abdomen: Normal Bowel Sounds, Soft, No Tenderness Neurological: Normal Speech, Strength at 5/5 X4 Ext, Cranial Nerves 3-12 NL, Reflexes 2+ Extremities: No Edema Current Medications: Current Medications Sig/Vanesa Start time Last Medication Dose Route Stop Time Status Admin Amlodipine Besylate 10 MG DAILY 09/08 1000 CAN PO Aspirin 81 MG DAILY 09/08 1000 AC 09/08 PO 0929 Atorvastatin Calcium 80 MG 1700 09/07 1700 AC 09/07 PO 2118 Clopidogrel Bisulfate 0 .STK-MED ONE 09/07 1755 DC PO Clopidogrel Bisulfate 75 MG DAILY 09/07 1615 AC 09/08 PO 0929 Enoxaparin Sodium 40 MG DAILY 09/08 1000 AC 09/08 SC 0928 Ezetimibe 10 MG DAILY 09/08 1000 DC PO Ezetimibe 10 MG 1700 09/07 1745 AC 09/07 PO 2000 Famotidine 20 MG DAILY 09/08 1000 AC 09/08 PO 0929 Fenofibrate 145 MG DAILY 09/08 1000 DC PO Fenofibrate 145 MG 1700 09/07 1745 AC 09/07 PO 2000 Gabapentin 600 MG TID 09/07 2200 AC 09/08 PO 0929 Levothyroxine Sodium 0.1 MG DAILY AC 09/08 0700 AC 09/08 PO 0649 Losartan Potassium 100 MG DAILY 09/08 1000 CAN PO Losartan Potassium 100 MG DAILY 09/08 1000 AC 09/08 PO 0929 Magnesium Oxide 400 MG ONCE ONE 09/07 2215 DC 09/07 PO 09/07 2216 2334 Melatonin 5 MG AT BEDTIME 09/07 2199 AC 09/07 PO 2334 Metoprolol Tartrate 50 MG BID 09/07 2199 AC 09/08 PO 0929 Morphine Sulfate 30 MG BID 09/07 2200 AC 09/08 PO 0928 Oxycodone HCl 10 MG Q6 09/07 1800 AC 09/08 PO 0649 Last 24 Hrs of Labs/Mics: Laboratory Tests 09/08/17 0633: Anion Gap 14, Estimated GFR > 60, BUN/Creatinine Ratio 23.8, Triglycerides 278 H, Cholesterol 164, LDL Cholesterol, Calc 74, HDL Cholesterol 35 L, Cholesterol /HDL Ratio 4.7 H, CBC w Diff NO MAN DIFF REQ, RBC 4.22, MCV 87.3, MCH 29.6, MCHC 33.9, RDW 14.2, MPV 9.1, Gran % 67.4, Lymphocytes % 20.8, Monocytes % 7.4, Eosinophils % 3.9, Basophils % 0.5, Absolute Granulocytes 3.5, Absolute Lymphocytes 1.1 L, Absolute Monocytes 0.4, Absolute Eosinophils 0.2, Absolute Basophils 0 09/07/17 1403: Anion Gap 18 H, Estimated GFR > 60, BUN/Creatinine Ratio 22.2, Glucose 72, Hemoglobin A1c 5.5, Calcium 10.7 H, Phosphorus 4.2, Magnesium 1.8, Total Bilirubin 0.5, AST 50 H, ALT 31, Alkaline Phosphatase 87, Total Protein 8.0, Albumin 4.7, Globulin 3.3, Albumin/Globulin Ratio 1.4, CBC w Diff NO MAN DIFF REQ, RBC 4.70, MCV 88.4, MCH 28.8, MCHC 32.5 L, RDW 14.2, MPV 9.0, Gran % 70.2, Lymphocytes % 20.0 L, Monocytes % 5.0, Eosinophils % 4.4, Basophils % 0.4, Absolute Granulocytes 4.0, Absolute Lymphocytes 1.1 L, Absolute Monocytes 0.3, Absolute Eosinophils 0.2, Absolute Basophils 0
== END 2017-09-08 16:20 ==
LOC: ERH 12:36 → ERHI 14:40 → 1NO 14:40 → ENRESERV 17:30 → ENTRNSPT 18:07 → 1NO 18:25 → CMPTRNSPT 18:37 → ENPENDDIS 09-08 13:31 → 1NO 09-08 16:20 → ENTRNSPT 09-08 16:33 → CMPTRNSPT 09-08 16:55
PROVIDERS: Emergency Medicine; Internal Medicine
DX: H53.9 Unspecified visual disturbance (principal); E66.01 Morbid (severe) obesity due to excess calories; Z79.01 Long term (current) use of anticoagulants; Z79.82 Long term (current) use of aspirin; M85.80 Other specified disorders of bone density and structure, unspecified site; E55.9 Vitamin D deficiency, unspecified; I25.10 Atherosclerotic heart disease of native coronary artery without angina pectoris; Z95.5 Presence of coronary angioplasty implant and graft; I10 Essential (primary) hypertension; M79.7 Fibromyalgia; M54.9 Dorsalgia, unspecified; E03.9 Hypothyroidism, unspecified; Z87.891 Personal history of nicotine dependence
CPT/HCPCS: 6020; 70551; 36415; 71046; 82436; 93005; 93010; 93306; 96372; G0378; J1650; J3490

== ENCOUNTER 2017-09-13 12:25 | Inpatient (IN) | payer OTHER ==
[~2017-09-13] VITALS: Ht 152.4 cm; Wt 93.0 kg
[~2017-09-13 12:25] MED LIST changes: +AMLODIPINE BESY10 M1 PO; +ASPIRIN81 M4 PO; +CLOBETASOL PROP15 GM TOP; +DULCOLAX5 M1 PO; +LOPRESSOR50 M1 PO; +MELATONIN5 M7 PO; +MS CONTIN30 M1 PO; +OXYCODONE HCL10 M2 PO; +PLAVIX75 M1 PO; +SILVADENE20 GM TOP; +VALSARTAN320 M1 PO; +VITAMIN D1000 UNIT PO
--- NOTE | 2017-09-13 12:45 | ED NEURO DEFICIT/STROKE ---
History of Present Illness General Chief Complaint: Neuro Symptoms/ Deficit Stated Complaint: TELLES/EPISODE OF CONFUSION Source: patient, family, old records Exam Limitations: confusion Vital Signs & Intake/Output Vital Signs & Intake/Output Vital Signs Date Time Temp Pulse Resp B/P B/P Pulse O2 O2 Flow FiO2 Mean Ox Delivery Rate 09/14 0943 70 18 111/53 95 Room Air 09/14 0845 70 111/53 09/14 0830 70 18 111/53 95 Room Air 09/14 0508 96.7 70 20 126/55 93 BIPAP 09/13 2335 60 106/51 09/13 2332 97.6 66 20 106/51 92 CPAP 09/13 2230 69 20 93 CPAP Room Air 09/13 2103 97.3 62 18 140/68 96 09/13 2030 94 CPAP Room Air 09/13 1929 98.1 63 20 126/78 95 Room Air 09/13 1755 97.9 77 18 119/54 97 Nasal 2.0L Cannula 09/13 1527 97.7 71 20 124/57 97 Nasal 2.0L Cannula 09/13 1323 97.4 69 16 111/56 94 Room Air 09/13 1317 98 Room Air ED Intake and Output 09/14 0000 09/13 1200 Intake Total 0 Output Total 200 Balance -200 Intake, Oral 0 Output, Urine 200 Patient 220 lb Weight Weight Reported by Patient Measurement Method Allergies Coded Allergies: Iodinated Contrast- Oral and IV Dye (IODINATED CONTRAST MEDIA - IV DYE) (HIVES ALL OVER BODY AND SOB PER PT 10/03/15) duloxetine (From CYMBALTA) (NAUSEA 09/07/17) potassium (Intermediate, THROUGH IV, PT REPORTS BURINING GOING THRU IV ) adhesive tape (Mild, REDNESS/IRRITATION AT SITE 10/03/15) Reconcile Medications Amlodipine Besylate 10 MG TABLET 1 TAB PO DAILY HEART (Reported) Aspirin (Aspirin*) 81 MG TAB.CHEW 1 TAB PO DAILY HEART (Reported) Bisacodyl (Dulcolax) 5 MG TABLET.DR 1 TAB PO DAILY contipation (Reported) Cholecalciferol (Vitamin D3) (Vitamin D) 1,000 UNIT TABLET 2 TAB PO DAILY supplement (Reported) Clopidogrel Bisulfate (Plavix) 75 MG TABLET 75 MG PO DAILY STROKE . Cyclobenzaprine HCl 10 MG TABLET 1 TAB PO DAILY PAIN (Reported) Ezetimibe (Zetia) 10 MG TABLET 1 TAB PO DAILY hlp (Reported) Fenofibrate Nanocrystallized (Fenofibrate) 145 MG TABLET 1 TAB PO DAILY hlp ( Reported) Gabapentin (Neurontin) 300 MG CAPSULE 2 CAP PO TID pain (Reported) Levothyroxine Sodium 100 MCG TABLET 1 TAB PO DAILY thyriod (Reported) Metoprolol Tartrate (Lopressor) 50 MG TABLET 1 TAB PO BID HEART (Reported) Morphine Sulfate (Ms Contin) 30 MG TABLET.ER 1 TAB PO BIDP pain (Reported) Oxycodone HCl 10 MG TABLET 1 TAB PO 4XDP pain (Reported) Ranitidine HCl (Heartburn Relief) 150 MG TABLET 1 TAB PO DAILY PRN heartburn (Reported) Rosuvastatin Calcium (Crestor) 40 MG TABLET 1 TAB PO DAILY HEART (Reported) Valsartan 320 MG TABLET 1 TAB PO DAILY HEART (Reported) Triage Note: PT BIBA FROM HOME FOR ALTERED MENTAL STATUS. PT WAS AWAKENED BY FAMILY THIS AM WAS NOT MAKING SENSE. PT IS S/P CVA LAST WEEK. ARRIVES TO ED WITH FAMILY. ALERT. PT IS SIGNING ANOTHER NAME TO FORMS AND IS TALKING TO PEOPLE. PT BIBA TO TRIAGE. Triage Nurses Notes Reviewed? yes Onset: Abrupt Duration: day(s): (1), constant Timing: recent history Severity: moderate Vision Problem? No Glaucoma? No Baseline: alert, oriented x 3 Associated Symptoms: denies HPI: 62-year-old lady with history of ischemic heart disease with previous stent with no active ischemic heart, hypertension, hyperlipidemia, morbid obesity, hypothyroidism on appropriate supplementation, previous history of multiple lumbar surgeries with fusion with chronic pain syndrome in the past with severe backache, previous history of OH with V. fib arrest presents with family for evaluation for altered mental status. Per the patient's family her attempted to wake her up earlier this morning and she was just blankly staring at him without speaking. They state since then she is now stating that she is seeing multiple ones that have . On arrival to the emergency room the patient states she is in the morgue however is aware of the date and current president. Her family states the last time she had a similar episode was 12 years ago which time she had a massive heart attack. On arrival the patient denies any chest pain shortness of breath abdominal pain headache nausea vomiting. No blurry vision. She was recently discharged last week after she had right eye vision cloudiness that they brought her in to rule out a stroke. Carotid ultrasound and MRI of the head showed no acute CVA. There's been no recent fall or trauma. She did take her medicine prior to the episode beginning this morning which did include oxycodone and morphine. The patient is awake at this time there is no signs of lethargy or obtundation family reports she has not been eating or drinking since discharge. she was recently started on medicinal marijuana for her chronic pain (Eloy Figueroa) Past History Travel History Traveled to [place] past 21 day No Medical History Any Pertinent Medical History? see below for history Neurological: migraine, vertigo EENT: NONE Cardiovascular: CAD (S/P 2 stents), cardiomyopathy, hypertension, hyperlipidemia , OH 12 YEARS AGO 2 STENTS Respiratory: obstructive sleep apnea Gastrointestinal: GERD, umbilical hernia, SBO 13 YRS AGGO ABDOMINAL HERNIA Hepatic: "FATTY LIVER" Renal: NONE Musculoskeletal: chronic back pain, disk herniation, osteoarthritis, sciatica Psychiatric: NONE Endocrine: hypothyroidism, obesity, vitamin D deficiency, BOARDERLINE DM Blood Disorders: NONE Cancer(s): basal cell carcinoma [employer]GE[employer]/Reproductive: NONE Other Medical Hx: Obesity History of MRSA: No History of VRE: No History of CDIFF: No Surgical History Surgical History: non-contributory Psychosocial History Who do you live with Spouse Services at Home None What is your primary language [place]ankan Tobacco Use: Never used ETOH Use: denies use Illicit Drug Use: denies illicit drug use Family History Family History, If Any: FATHER Heart attack MOTHER Heart attack Hx Contributory? No (Eloy Figueroa) Review of Systems Review of Systems Constitutional: Reports: see HPI. All Other Systems: Reviewed and Negative Comments Review of systems: obtained via family Constitutional, no chills no fever, HEENT: no sore throat no congestion Cardiovascular: No chest pain , no palpitation Skin: no rashes, no change in skin Respiratory: No dyspnea no cough no sputum GI: No nausea no vomiting, no diarrhea, : No dysuria No hematuria, no frequency Muscle skeletal: No joint pain, no back pain, no neck pain, Neurologic: , no headache Psych: No stress Heme/endocrine: No bruising Immunology: No lymphadenopathy (Eloy Figueroa) Physical Exam Physical Exam General Appearance: well developed/nourished, awake Cranial Nerves: normal hearing, normal speech, PERRL Comments: Well-developed well-nourished person in no acute distress HEENT: Normal EENT exam; PERRL,pupils normal EOMI, no nystagmus. HEAD is atraumatic. moist mucous membranes. Neck: Supple,normal range of motion Back: Nontender, no CVA tenderness. Full range of motion Cardiovascular: Regular rate and rhythms no murmurs rubs or gallops, normal JVP Respiratory: Chest nontender.There were no bony deformities, no asymmetry. No respiratory distress. Patient speaking in full complete sentences. Breath sounds clear to auscultation bilaterally: NO W/R/R Abdomen: Soft, nontender nondistended, no appreciable organomegaly. Normal bowel sounds. No rebound/guarding, Extremity: No edema, full range of motion of extremities, 5 out of 5 strength noted to bilateral upper and lower extremities Neuro: Alert oriented x2, motor sensory normal, cranial nerves II through XII grossly intact. There were no obvious focal neurologic abnormalities. no slurred speech no facial droop, Skin: No appreciable rash on exposed skin, skin is warm and dry. Psych: Mood and affect is normal, memory and judgment is normal. Core Measures CVA/TIA Diagnosis: No Sepsis Present: No Sepsis Focused Exam Completed? No (Jamari CARTER,Eloy) Progress Differential Diagnosis: drug intoxication, electrolyte imbalance, encephalitis, hypoglycemia, intracranial Hem., intracranial mass/tumor, meningitis, stroke, subarachnoid Hem., vertebrobasilar insuff. Plan of Care: Orders Procedure Date/time Status CBC WITHOUT DIFFERENTIAL 09/14 0500 Complete BASIC ELECTROLYTES PLUS BUN&CR 09/14 0500 Complete PHOSPHORUS 09/14 0000 Complete MAGNESIUM 09/14 0000 Complete HEPATIC FUNCTION PANEL 09/14 0000 Complete CALCIUM 09/14 0000 Complete BASIC ELECTROLYTES PLUS BUN&CR 09/14 0000 Complete ELECTROENCEPHALOGRAM 09/14 UNK Active MRI-HEAD W/O ABIGAIL 09/14 UNK Active AMMONIA LEVEL 09/13 UNK Complete NIH Stroke Scale 09/13 2150 Active Lab Add-on Test 09/13 2039 Active ARTERIAL BLOOD GAS (GEN) 09/13 1628 Complete Wasserman, Insertion/Removal/Asses 09/13 1628 Active Pathway - chart 09/13 1536 Active House Staff 09/13 1536 Active Code Status 09/13 1536 Active Patient Data 09/13 1524 Active ARTERIAL BLOOD GAS (GEN) 09/13 1520 Active Add-on Test (ER Only) 09/13 1516 Active Add-on Test (ER Only) 09/13 1513 Active Admit to inpatient 09/13 1454 Active Vital Signs 09/13 1454 Active Code Status 09/13 1454 Complete Add-on Test (ER Only) 09/13 1450 Active Wasserman, Insertion/Removal/Asses 09/13 1450 Active Add-on Test (ER Only) 09/13 1426 Active Intake & Output 09/13 1317 Active THYROID STIMULATING HORMONE 09/13 1315 Complete TROPONIN LEVEL 09/13 1315 Complete PROLACTIN 09/13 1315 Complete LACTIC ACID 09/13 1315 Complete FingerStick- Glucose 09/13 1300 Active URINE OSMOLALITY 09/13 1259 Complete URINE LYTES, SPOT 09/13 1259 Complete Add-on Test (ER Only) 09/13 1254 Active CULTURE,URINE 09/13 1254 Active Telemetry/Concrete Puddler 09/13 1245 Active URINE DRUG SCREEN FOR ER ONLY 09/13 1245 Complete URINALYSIS 09/13 1245 Complete PARTIAL THROMBOPLASTIN TIME 09/13 1245 Complete PROTHROMBIN TIME 09/13 1245 Complete ETHANOL 09/13 1245 Complete COMPREHENSIVE METABOLIC PANEL 09/13 1245 Complete CBC WITHOUT DIFFERENTIAL 09/13 1245 Complete EKG 09/13 1245 Active BIPAP 09/13 UNK Complete VTE Mechanical Prophylaxis 09/13 UNK Active Current Medications Sig/Vanesa Start time Last Medication Dose Stop Time Status Admin Amlodipine Besylate 10 MG DAILY 09/14 1000 AC 09/14 (Norvasc) 0845 Aspirin 81 MG DAILY 09/14 1000 AC 09/14 (Aspirin) 0845 Clopidogrel Bisulfate 75 MG DAILY 09/14 1000 AC 09/14 (Plavix) 0845 Levothyroxine Sodium 0.1 MG DAILY AC 09/14 0700 AC 09/14 (Synthroid) 0845 Omeprazole 40 MG DAILY AC 09/14 0700 AC 09/14 (Prilosec) 0845 Gabapentin 100 MG Q8 09/14 0600 AC 09/14 (Neurontin) 0845 Heparin Sodium 5,000 UNIT Q8 09/14 0600 AC 09/14 (Porcine) 0845 Metoprolol Tartrate 50 MG BID 09/13 2200 AC (Lopressor) Dextrose/Sodium 1,000 ML Q13H 09/13 2145 AC 09/13 Chloride 2336 (D5-Normal Saline) Laboratory Tests 09/14/17 0518: Anion Gap 10, Estimated GFR 24 L, BUN/Creatinine Ratio 23.8, Calcium 8.8, Phosphorus 4.8 H, Magnesium 2.1, Total Bilirubin 0.3, Direct Bilirubin 0.3, AST 23, ALT 33, Alkaline Phosphatase 55, Total Protein 5.6 L, Albumin 3.1 L, CBC w Diff NO MAN DIFF REQ, RBC 3.56 L, MCV 87.8, MCH 29.3, MCHC 33.4, RDW 14.3, MPV 9.2, Gran % 72.0, Lymphocytes % 16.5 L, Monocytes % 6.6, Eosinophils % 4.8, Basophils % 0.1, Absolute Granulocytes 3.8, Absolute Lymphocytes 0.9 L, Absolute Monocytes 0.3, Absolute Eosinophils 0.3, Absolute Basophils 0 09/14/17 0053: Anion Gap 11, Estimated GFR 21 L, BUN/Creatinine Ratio 23.0 09/13/17 203: Prolactin Cancelled 09/13/17 1625: pH 7.24 *L, pCO2 44, pO2 82, HCO3 18 L, ABG O2 Sat (Measured) 93.0 L, P-50 ( Temp Corrected) N, Carboxyhemoglobin 1.2 L, O2 Concentration % 2L, Temperature 97.7, O2 Delivery Method NC, Phlebotomy Draw Site RIGHT RADIAL 09/13/17 1343: Ammonia < 9 L, CBC w Diff NO MAN DIFF REQ, RBC 3.93 L, MCV 87.7, MCH 29.6, MCHC 33.8, RDW 13.9, MPV 9.4, Gran % 73.5, Lymphocytes % 15.4 L, Monocytes % 7.3, Eosinophils % 3.2, Basophils % 0.6, Absolute Granulocytes 5.1, Absolute Lymphocytes 1.1 L, Absolute Monocytes 0.5, Absolute Eosinophils 0.2, Absolute Basophils 0 09/13/17 1315: Anion Gap 14, Estimated GFR 12 L, BUN/Creatinine Ratio 17.3, Glucose 93, Lactic Acid 0.6 L, Calcium 9.0, Total Bilirubin 0.3, AST 22, ALT 31, Alkaline Phosphatase 65, Troponin I < 0.01, Total Protein 6.5, Albumin 3.9, Globulin 2.6, Albumin/Globulin Ratio 1.5, TSH 0.759, Prolactin 23.9 H, PT 11.3, INR 1.08, APTT 23 L, Serum Alcohol < 10.0 09/13/17 1259: Urinalysis LIGHT H, Urine Color YEL, Urine Clarity CLEAR, Urine pH 6.0, Ur Specific [place] 1.020, Urine Protein NEG, Urine Ketones NEG, Urine Nitrite NEG, Urine Bilirubin NEG, Urine Urobilinogen 0.2, Ur Leukocyte Esterase TRACE H, Ur Microscopic SEDIMENT EXAMINED, Urine WBC 1-3 H, Ur Epithelial Cells MOD H, Urine Bacteria FEW H, Hyaline Casts 1-3 H, Urine Mucus FEW, Urine Hemoglobin NEG, Urine Glucose NEG 09/13/17 1259: Urine Opiates Screen > 4000.00 H, Methadone Screen 53, Barbiturate Screen < 60, Ur Phencyclidine Scrn < 6.00, Amphetamines Screen < 100, U Benzodiazepines Scrn < 85, Urine Cocaine Screen < 50, Urine Cannabis Screen 72.40 H, Urine Osmolality 302, Ur Random Creatinine 134.7, Ur Random Sodium 37, Ur Random Potassium 25.9, Fraction Sodium Excret 0.7 09/13/17 1254: Ammonia Cancelled, Serum Alcohol Cancelled Microbiology 09/13 1253 URINE ROUT: Urine Culture - RES Labs ordered old records reviewed patient is awake oriented 2, no signs of obtundation or lethargy pupils are not constricted at this time 94% on room air 1400 I discussed with the patient and her family all of her lab results she still believe she is in the more car was able to tell me the date today and the president. Call placed to Dr. Miguel. Case discussed with Dr. Jones who evaluated the patient agrees with plan case d/w dr miguel advised to cover with 1g rocephin iv, will admit 1530 DR miguel in dep to eval pt, we will get abg and ct abd wo contrast r/o obstruction uropathy PATIENT: FREDDY CHAPA PRESENT AGE: 62 PATIENT ACCOUNT NO: [id number] : 54 LOCATION: [facility] ORDERING PHYSICIAN: Eloy CARTER SERVICE DATE: 09/13/17-1520 EXAM TYPE: CAT - CT ABD & PELVIS W/O IV CONTRAS EXAMINATION: CT ABDOMEN AND PELVIS WITHOUT CONTRAST CLINICAL INFORMATION: Uremic. Elevated creatinine. COMPARISON: CT scan abdomen and pelvis 12/30/2014. TECHNIQUE: Multidetector volumetric imaging was performed from the superior aspect of the liver through the pubic symphysis. Sagittal and coronal reformatted images were obtained on the technologist's workstation. DLP: 863.76 mGy-cm. FINDINGS: LUNG BASES: No acute infiltrate. Small thin-walled lung cyst right lung base at posterior costophrenic angle. No pleural effusion. LIVER, GALLBLADDER, AND BILIARY TREE: In segment 4 of left lobe of liver, there are several faint hypodense lesions measuring between 8 mm and 11 mm. There is a fourth hypodensity the inferior right lobe measuring 1.5 cm. These are nonenhancing on the CAT scan of 12/30/2014 consistent with hepatic cysts. No suspicious or new lesion. There is a small coarse calcification in the left lobe of liver. The gallbladder is unremarkable with no evidence of radiopaque gallstones, gallbladder wall thickening, or obvious pericholecystic inflammatory changes. PANCREAS: Unremarkable. SPLEEN: Unremarkable. ADRENAL GLANDS: Unremarkable. KIDNEYS AND URETERS: The kidneys are normal in size, shape, and attenuation. Stable midpole cyst left kidney measuring 2.3 cm. No hydronephrosis, hydroureter, or calculi seen. No perinephric stranding. BLADDER: Wasserman catheter within the bladder. The bladder is empty. ANTERIOR ABDOMINAL WALL: Gastrointestinal Tract: There is a ventral wall hernia. Defect in the anterior abdominal wall measures 7 cm transverse. There is fat and a portion of the transverse colon herniating through the defect. This does not obstruct the colon, however. The herniated fat pocket measures approximately 8.8 x 2.7 x 5 cm. No acute change of the bowel. No bowel obstruction. No bowel wall thickening or edema. Moderate amount of scattered stool in the colon. The appendix is normal. The small-bowel loops are normal. There is a gastric band present in the right upper quadrant. LYMPH NODES: Normal. VASCULAR: Atherosclerotic vascular wall calcifications of aorta and iliac vessels without aneurysm. PELVIC VISCERA: Status post hysterectomy. OSSEOUS STRUCTURES: Degenerative spondylosis spine with orthopedic hardware fusing the lower lumbar spine. Advanced degenerative change of the hips with [id number] contact of the femoral head and acetabulum with subchondral cystic changes and spurring. IMPRESSION: 1. Ventral wall hernia. This has a nonobstructive loop of transverse colon. No acute change of the bowel. 2. Multiple hypodense lesions of liver unchanged since CAT scan 12/31/2015, hepatic cysts. DICTATED BY: Duane Herrera MD DATE/TIME DICTATED:09/13/171712 CHIEF OPERATOR HYDROFORMER:FILIPPO DATE/TIME TRANSCRIBED:09/13/171712 CONFIDENTIAL, DO NOT COPY WITHOUT APPROPRIATE AUTHORIZATION. <Electronically signed in Other Vendor System> SIGNED BY: Duane Herrera MD 09/13/17 9691 Diagnostic Imaging: Viewed by Me: Radiology Read, CT Scan. Discussed w/RAD: Radiology Read, CT Scan. Radiology Impression: PATIENT: FREDDY CHAPA PRESENT AGE: 62 PATIENT ACCOUNT NO: [id number] : 54 LOCATION: [facility] ORDERING PHYSICIAN: Eloy CARTER SERVICE DATE: 09/13/17-1245 EXAM TYPE: CAT - CT HEAD WO IV CONTRAST EXAMINATION: CT HEAD WITHOUT CONTRAST CLINICAL INFORMATION: Altered mental status. COMPARISON: CT of the head done on 09/07/2017 TECHNIQUE: Contiguous axial imaging was performed from the skull base to vertex without intravenous administration of contrast. DLP: 608.13 mGy-cm FINDINGS: There is no evidence of acute intracranial hemorrhage or territorial infarction. No abnormal mass effect or midline shift is seen. Gonzalez to white matter differentiation is well preserved. No extra-axial fluid collections are identified. The ventricles are normal in size. There is no abnormal attenuation within the brain parenchyma. The osseous structures and soft tissues are normal. The mastoid air cells and visualized portions of the paranasal sinuses are well aerated. IMPRESSION: No acute intracranial pathology, unchanged since 09/07/2017. DICTATED BY: Deon Carbone MD DATE/TIME DICTATED:09/13/171402 CHIEF OPERATOR HYDROFORMER: CHAUDHARI DATE/TIME TRANSCRIBED:09/13/171402 CONFIDENTIAL, DO NOT COPY WITHOUT APPROPRIATE AUTHORIZATION. <Electronically signed in Other Vendor System> SIGNED BY: Deon Carbone MD 09/13/17 1410, PATIENT: FREDDY CHAPA PRESENT AGE: 62 PATIENT ACCOUNT NO: [id number] : LOCATION: [facility] ORDERING PHYSICIAN: Eloy CARTER SERVICE DATE: -1316 EXAM TYPE: RAD - XRY-PORTABLE CHEST XRAY EXAMINATION: XR PORTABLE CHEST CLINICAL INFORMATION: Altered mental status. Assess for pathology. COMPARISON: Chest x-ray 09/07/2017. TECHNIQUE: Portable 85 degrees semiupright lordotic view of the chest was obtained. FINDINGS: The lung griffin are poorly expanded. There is resultant bronchovascular crowding at the bases bilaterally. The cardiac silhouette appears prominent, which is likely projectional. The aortic arch is calcified. There are no acute osseous findings. IMPRESSION: 1. The lung griffin are poorly expanded with resultant bronchovascular crowding at the bases. If indicated, repeat chest x-ray in PA and lateral projections for better assessment. DICTATED BY: Trenton Jose MD DATE/TIME DICTATED:09/13/171407 CHIEF OPERATOR HYDROFORMER:FILIPPO DATE/TIME TRANSCRIBED:09/13/171407 CONFIDENTIAL, DO NOT COPY WITHOUT APPROPRIATE AUTHORIZATION. <Electronically signed in Other Vendor System> SIGNED BY: Trenton Jose MD 09/13/17 1436 Initial ED EKG: NSR AT 70, NONSPECIFIC ST SEG CHANGES-FLATTENING OF V5-V6, NORMAL AXIS Prior EKG: unchanged Rhythm Strip: normal sinus rhythm (Eloy Figueroa) Departure Departure Time of Disposition: 1450 Disposition: STILL A PATIENT Condition: Stable Clinical Impression Primary Impression: Acute kidney injury Secondary Impressions: Abdominal hernia Altered mental status Qualifiers: Altered mental status type: delirium Qualified Code: R41.0 - Disorientation, unspecified Liver lesion Opiate abuse, continuous Referrals: Noah Miguel MD (PCP/Family) Departure Forms: Customer Survey General Discharge Information Admission Note Spoke With: Noah Miguel MD Documentation of Exam: Documentation of any treatments & extenuating circumstances including Concerns Regarding Discharge (functional status, medication knowledge or non-compliance, living conditions, etc.) that warrant an admission rather than observation: IV fluids renal consult pain management consult neuro checks telemetry monitoring premature discharge would BE medically harmful trend labs and electrolytes (Eloy Figueroa) PA/[employer] [employer] Co-Sign Statement Statement: ED Attending supervision documentation- [x] I saw and evaluated the patient. I have also reviewed all the pertinent lab results and diagnostic results. I agree with the findings and the plan of care as documented in the PA's/[facility] [employer]'s documentation. [x] I have reviewed the ED Record and agree with the PA's/[facility] [employer]'s documentation. [] Additions or exceptions (if any) to the PAs/[employer] [employer]'s note and plan are summarized below: [] (Robert MYLES,Taniya)
[2017-09-13] MEDS ORDERED: CYCLOBENZAPRINE10 M1 PO (13:02)
[2017-09-13 13:58] LABS: ABSOLUTE BASOPHIL COUNT 0 /CUMM (0.0-0.2); ABSOLUTE EOSINOPHIL COUNT 0.2 /CUMM (0.0-0.7); ABSOLUTE GRANULOCYTE CT 5.1 /CUMM (1.4-6.5); ABSOLUTE LYMPH COUNT 1.1 /CUMM (1.2-3.4); ABSOLUTE MONOCYTE COUNT 0.5 /CUMM (0.10-0.60); BASOPHIL % 0.6 % (0.0-2.0); EOSINOPHIL % 3.2 % (0-5); GRANULOCYTE % 73.5 % (42.2-75.2); HEMATOCRIT 34.5 % (37-47); MEAN CORPUSCULAR HGB 29.6 PG (27.0-31.0); MEAN CORPUSCULAR HGB CONC 33.8 G/DL (33.0-37.0); MEAN CORPUSCULAR VOLUME 87.7 FL (81.0-99.0); MEAN PLATELET VOLUME 9.4 FL (7.4-10.4); PLATELET COUNT 180 /CUMM (130-400); RBC DISTRIBUTION WIDTH 13.9 % (11.5-14.5); RED BLOOD CELL CT 3.93 /CUMM (4.20-5.40)
[2017-09-13 14:01] LABS: PT 11.3 SEC (9.4-12.5); PTT 23 SEC (25-37)
--- NOTE | 2017-09-13 14:10 | CT SCAN REPORT ---
EXAMINATION: CT HEAD WITHOUT CONTRAST CLINICAL INFORMATION: Altered mental status. COMPARISON: CT of the head done on 09/07/2017 TECHNIQUE: Contiguous axial imaging was performed from the skull base to vertex without intravenous administration of contrast. DLP: 608.13 mGy-cm FINDINGS: There is no evidence of acute intracranial hemorrhage or territorial infarction. No abnormal mass effect or midline shift is seen. Gonzalez to white matter differentiation is well preserved. No extra-axial fluid collections are identified. The ventricles are normal in size. There is no abnormal attenuation within the brain parenchyma. The osseous structures and soft tissues are normal. The mastoid air cells and visualized portions of the paranasal sinuses are well aerated. IMPRESSION: No acute intracranial pathology, unchanged since 09/07/2017.
--- NOTE | 2017-09-13 14:36 | RADIOLOGY REPORT ---
EXAMINATION: XR PORTABLE CHEST CLINICAL INFORMATION: Altered mental status. Assess for pathology. COMPARISON: Chest x-ray 09/07/2017. TECHNIQUE: Portable 85 degrees semiupright lordotic view of the chest was obtained. FINDINGS: The lung griffin are poorly expanded. There is resultant bronchovascular crowding at the bases bilaterally. The cardiac silhouette appears prominent, which is likely projectional. The aortic arch is calcified. There are no acute osseous findings. IMPRESSION: 1. The lung griffin are poorly expanded with resultant bronchovascular crowding at the bases. If indicated, repeat chest x-ray in PA and lateral projections for better assessment.
--- NOTE | 2017-09-13 15:59 | History & Physical ---
Igor Hernandez MD 09/13/17 1558: General Information and HPI MD Statement: I have seen and personally examined FREDDY CHAPA and documented this H&P. The patient is a 62 year old F who presented with a patient stated chief complaint of altered mental status. Source of Information: patient, family, old records Exam Limitations: no limitations History of Present Illness: 62 year old female with past medical history of HTN, HLD, CAD with myocardial infarction, cardiac arrest with ROSC and coronary stents placed twelve years ago who was recently at [facility] as an observation for an acute visual change suspiscious for CVA and diagnosed with right eye retinal artery occlusion. She was evaluated for embolic source but transthoracic echocardiogram and carotid ultrasound studies were negative. She was discharged home on aspirin and plavix with plan for possible transesophageal echocardiogram and longer term monitoring for arrhythmia. She had no arrhythmias while being observed on telemetry. After her discharge, she was reportedly in her usual state of health for the past five days ago until this morning. Her reports she was normal on awakening this morning around 1000 but when he returned from shopping approximately 1130 she was lethargic, difficult to arouse , and confused. Her also reports that she was shaking at that time. She reported headache, that is not uncommon for her, that begain after EMS arrived and also endorsed periodic palpitations that she last noticed about 3-4 weeks ago but denies any acute visual changes, fevers, chills, nausea, vomiting, abdominal pain, cough, dyspnea, diarrhea, numbness, or weakness. The patient had no complaints at the time of evaluation in the ED, with improvement of her altered mental status, and reportings feeling asymptomatic. The only recent change in her medications was the addition of plavix. She has been using medical marijuana and opioid pain regularly and manages her own medications. She has had limited PO intake of both food and liquid according to the family. She usually only eats dinner and little else during the day. She uses a walker and needs assistance for transfers at baseline. Her mental status is normal according to the family. They believe her symptoms are from dehydration and her pain medications. In the ED, she was found to have acute renal failure in addition to altered mental. She had a NCHCT that had no acute hemorrhage or ischemia. She received two liters crystalloid bolus in addition to one dose of ceftriaxone with significant improvement in her mental status. Allergies/Medications Allergies: Coded Allergies: Iodinated Contrast- Oral and IV Dye (IODINATED CONTRAST MEDIA - IV DYE) (HIVES ALL OVER BODY AND SOB PER PT 10/03/15) duloxetine (From CYMBALTA) (NAUSEA 09/07/17) potassium (Intermediate, THROUGH IV, PT REPORTS BURINING GOING THRU IV ) adhesive tape (Mild, REDNESS/IRRITATION AT SITE 10/03/15) Home Med list Amlodipine Besylate 10 MG TABLET 1 TAB PO DAILY HEART (Reported) Aspirin (Aspirin*) 81 MG TAB.CHEW 1 TAB PO DAILY HEART (Reported) Bisacodyl (Dulcolax) 5 MG TABLET.DR 1 TAB PO DAILY contipation (Reported) Cholecalciferol (Vitamin D3) (Vitamin D) 1,000 UNIT TABLET 2 TAB PO DAILY supplement (Reported) Clopidogrel Bisulfate (Plavix) 75 MG TABLET 75 MG PO DAILY STROKE . Cyclobenzaprine HCl 10 MG TABLET 1 TAB PO DAILY PAIN (Reported) Ezetimibe (Zetia) 10 MG TABLET 1 TAB PO DAILY hlp (Reported) Fenofibrate Nanocrystallized (Fenofibrate) 145 MG TABLET 1 TAB PO DAILY hlp ( Reported) Gabapentin (Neurontin) 300 MG CAPSULE 2 CAP PO TID pain (Reported) Levothyroxine Sodium 100 MCG TABLET 1 TAB PO DAILY thyriod (Reported) Metoprolol Tartrate (Lopressor) 50 MG TABLET 1 TAB PO BID HEART (Reported) Morphine Sulfate (Ms Contin) 30 MG TABLET.ER 1 TAB PO BIDP pain (Reported) Oxycodone HCl 10 MG TABLET 1 TAB PO 4XDP pain (Reported) Ranitidine HCl (Heartburn Relief) 150 MG TABLET 1 TAB PO DAILY PRN heartburn (Reported) Rosuvastatin Calcium (Crestor) 40 MG TABLET 1 TAB PO DAILY HEART (Reported) Valsartan 320 MG TABLET 1 TAB PO DAILY HEART (Reported) Compliance With Home Meds: GOOD Past History Travel History Traveled to [place] past 21 day No Medical History Neurological: migraine, vertigo EENT: NONE Cardiovascular: CAD (S/P 2 stents), cardiomyopathy, hypertension, hyperlipidemia , SC 12 YEARS AGO 2 STENTS Respiratory: obstructive sleep apnea Gastrointestinal: GERD, umbilical hernia, SBO 13 YRS AGGO ABDOMINAL HERNIA Hepatic: "FATTY LIVER" Renal: NONE Musculoskeletal: chronic back pain, disk herniation, osteoarthritis, sciatica Psychiatric: NONE Endocrine: hypothyroidism, obesity, vitamin D deficiency, BOARDERLINE DM Blood Disorders: NONE Cancer(s): basal cell carcinoma S[employer]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 Ambulation: cane IADLs Independent: shopping, housework, finances, food prep, telephone, transportation , medication admin. Review of Systems Review of Systems Constitutional: Denies: chills, diaphoresis, fever. EENTM: Reports: visual changes. Denies: nasal congestion, nasal pain, throat pain, throat swelling. Cardiovascular: Reports: palpitations. Denies: chest pain, edema, peripheral edema, syncope. Respiratory: Denies: cough, hemoptysis, orthopnea, short of breath. GI: Denies: abdominal pain, constipation, diarrhea, melena, nausea, bloody stool, changes in stool, vomiting. Genitourinary: Denies: dysuria, frequency. Musculoskeletal: Reports: back pain. Skin: Reports: no symptoms. Neurological/Psychological: Reports: headache. Denies: dementia, numbness, paresthesia, weakness. Hematologic/Endocrine: Reports: no symptoms. Immunologic/Allergic: Reports: no symptoms. All Other Systems: Reviewed and Negative Exam & Diagnostic Data Last 24 Hrs of Vital Signs/I&O Vital Signs Date Time Temp Pulse Resp B/P B/P Pulse O2 O2 Flow FiO2 Mean Ox Delivery Rate 09/13 1527 97.7 71 20 124/57 97 Nasal 2.0L Cannula 09/13 1323 97.4 69 16 111/56 94 Room Air 09/13 1317 98 Room Air Intake & Output 09/13 1600 09/13 0800 09/13 0000 Intake Total 0 Output Total 200 Balance -200 Intake, Oral 0 Output, Urine 200 Patient 99.79 kg Weight Weight Reported by Patient Measurement Method Physical Exam General Appearance Alert, Oriented X3, Cooperative, No Acute Distress, obese Cardiovascular Regular Rate, Normal S1, Normal S2, No Murmurs, no CVA tenderness Lungs diminished air entry but clear to auscultation, no wheezes or rhonchi Abdomen Normal Bowel Sounds, Soft, No Tenderness, No Masses, obese, large ventral hernia Extremities No Clubbing, No Cyanosis, Normal Pulses, trace bilateral pedal edema Last 24 Hrs of Labs/Beau: Laboratory Tests 09/13/17 1625: pH 7.24 *L, pCO2 44, pO2 82, HCO3 18 L, ABG O2 Sat (Measured) 93.0 L, P-50 ( Temp Corrected) N, Carboxyhemoglobin 1.2 L, O2 Concentration % 2L, Temperature 97.7, O2 Delivery Method NC, Phlebotomy Draw Site RIGHT RADIAL 09/13/17 1343: Ammonia < 9 L, CBC w Diff NO MAN DIFF REQ, RBC 3.93 L, MCV 87.7, MCH 29.6, MCHC 33.8, RDW 13.9, MPV 9.4, Gran % 73.5, Lymphocytes % 15.4 L, Monocytes % 7.3, Eosinophils % 3.2, Basophils % 0.6, Absolute Granulocytes 5.1, Absolute Lymphocytes 1.1 L, Absolute Monocytes 0.5, Absolute Eosinophils 0.2, Absolute Basophils 0 09/13/17 1315: Anion Gap 14, Estimated GFR 12 L, BUN/Creatinine Ratio 17.3, Glucose 93, Lactic Acid 0.6 L, Calcium 9.0, Total Bilirubin 0.3, AST 22, ALT 31, Alkaline Phosphatase 65, Troponin I < 0.01, Total Protein 6.5, Albumin 3.9, Globulin 2.6, Albumin/Globulin Ratio 1.5, TSH 0.759, PT 11.3, INR 1.08, APTT 23 L, Serum Alcohol < 10.0 09/13/17 1259: Urinalysis LIGHT H, Urine Color YEL, Urine Clarity CLEAR, Urine pH 6.0, Ur Specific [place] 1.020, Urine Protein NEG, Urine Ketones NEG, Urine Nitrite NEG, Urine Bilirubin NEG, Urine Urobilinogen 0.2, Ur Leukocyte Esterase TRACE H, Ur Microscopic SEDIMENT EXAMINED, Urine WBC 1-3 H, Ur Epithelial Cells MOD H, Urine Bacteria FEW H, Hyaline Casts 1-3 H, Urine Mucus FEW, Urine Hemoglobin NEG, Urine Glucose NEG 09/13/17 1259: Urine Opiates Screen > 4000.00 H, Methadone Screen 53, Barbiturate Screen < 60, Ur Phencyclidine Scrn < 6.00, Amphetamines Screen < 100, U Benzodiazepines Scrn < 85, Urine Cocaine Screen < 50, Urine Cannabis Screen 72.40 H, Urine Osmolality 302, Ur Random Creatinine 134.7, Ur Random Sodium 37, Ur Random Potassium 25.9, Fraction Sodium Excret 0.7 09/13/17 1254: Ammonia Cancelled, Serum Alcohol Cancelled Microbiology 09/13 1254 URINE ROUT: Urine Culture - RECD Diagnostic Data EKG Results sinus rhythm no acute ischemic ST T wave changes CXR Results low volumes, no infiltrate Other Results CT abdomen/pelvis IMPRESSION: 1. Ventral wall hernia. This has a nonobstructive loop of transverse colon. No acute change of the bowel. 2. Multiple hypodense lesions of liver unchanged since CAT scan 12/31/2015, hepatic cysts. Assessment/Plan Assessment: 62 year old female with past medical history of HTN, HLD, hypothyroidism, CAD with myocardial infarction/arrest s/p coronary stents placement twelve years ago who was recently observed at [facility] for an acute visual change suspiscious for CVA, diagnosed with retinal artery occlusion with a negative preliminary workup for embolic source and discharged on dual antiplatelet therapy is brought in by ambulance after being noted to be lethargic and unarousable at home this morning with admission labs significant for acute kidney injury. Altered mental status: Mental status improved on evaluation with administration of crystalloids/ antibiotics Possible TIA vs metabolic encephalopathy vs medication toxicity NCHCT negative for acute ischemia or hemorrage Urine toxicology positive for morphine family metabolites and marijuana Discontinue any ZIPPER TRIMMER HAND depressants, opioid medications Admit to telemetry to monitor for arrythmia Consider [facility] as inpatient Continue dual antiplatelet therapy Urinalysis 1-3 wbc's, received ceftriaxone in ED, hold antibiotics pending culture unlikely mental status change secondary to infection without any symptoms Acute kidney injury: likely secondary to dehydration in combination with ACEi Creatinine 3.7, s/p 2L crystalloid bolus in ED FeNa low consistent with prerenal dehydration Trend renal function Avoid nephrotoxins, no nsaids, hold acei Metabolic acidosis: without appropriate appropriate respiratory compensation from MARIBEL and somnolence ABG 7.24/44/82/18 TRC evaluation, start NIPPV support Withhold respiratory depressants CAD: Continue beta nik, aspirin, plavix, statin hypothyroidism: Continue synthroid HTN: Can continue amlodipine, hold acei Heart health diet DVT ppx-heparin 5000 units subcutaneous Q8H Full code As Ranked By This Provider Problem List: 1. Obesity 2. Hypertension 3. Hyperlipidemia 4. Chronic back pain 5. Hypothyroidism 6. Branch retinal artery occlusion 7. Acute kidney injury 8. Altered mental status Qualifiers Altered mental status type: delirium Qualified Code: R41.0 - Disorientation, unspecified 9. Stented coronary artery Core Measures/Misc (04/16) Acute Coronary Syndrome ACS Diagnosis: No Congestive Heart Failure Congestive Heart Failure Diagnosis No Cerebrovascular Accident CVA/TIA Diagnosis: No VTE (View Protocol) VTE Risk Factors Age>40 No Mechanical VTE Prophylaxis d/t N/A MechProphylax Ordered No VTE Pharm Prophylaxis d/t NA PharmProphylax ordered Sepsis (View protocol) Sepsis Present: No David MYLES,[facility] 09/13/17 1752: Resident Review Statement Resident Statement: examined this patient, discussed with newsroom intern, agreed with newsroom intern Other Findings: 62-year-old female with PMH HTN, HLD, cardiac arrest and SC status post stenting 12 years ago who was recently admitted to [facility] because of right eye retinal artery occlusion. Today patient presented by family for evaluation of altered mental status and confusion. The patient woke up this morning with her usual state of health, her reported founding her confused after he came back from grocery shopping. He tried to wake her up but she was just staring at him when she suddenly had few seconds of limps shaking. Patient denies loss of urine or stool control, tongue biting, or head trauma. The patient is on morphine and Percocet for back pain. Her family reported that recently she's been sleeping more with a poor appetite, she eats 1 meal daily and had decreased her fluid oral intake. Assessment: Patient had poor oral intake, dehydrated on physical exam, FeNa <1% which makes her SERG most likely prerenal azotemia that worsened by ARB's use. SERG probably decreased the opioids clearance. ABG showed non-anion gap metabolic acidosis without sufficient respiratory compensation, the lack of respiratory compensation could be secondary to MARIBEL and suppression of respiratory drive by opioids. The combination of all the previously mentioned findings can explain her altered mental status. The patient had seizure like activity, seizure need to be ruled out. Plan: * We will admit to telemetry floor * We will hold all unnecessary home medications, especially opioids and nephrotoxic medications * Continuous IV fluids normal saline * Strict Is/Os * Repeat renal function frequently, nephro consult in am * We will start patient on BiPAP, as per her home regimen and setting * TSH is normal, continue home dose of levothyroxin * prolactine level, EEG, MRI head, and neurology consult in am * Heart healthy diet * Full code * DVT prophylaxis with subcutaneous heparin Noah Scales MD 09/13/172053: Attending MD Review Statement Attending Statement Attending MD Statement: examined this patient, discuss w/resident/PA/CHILD ATTENDANT, agreed w/resident/PA/CHILD ATTENDANT, discussed with family, reviewed EMR data (avail), discussed with nursing, discussed with case mgmt, reviewed images, amended to note Attending Assessment/Plan: Seen and examined independently in the emergency room Discuss with the family This is a 62-year-old lady with history of ischemic heart disease with previous stent with no active ischemic heart, hypertension, hyperlipidemia, morbid obesity, hypothyroidism on appropriate supplementation, previous history of multiple lumbar surgeries with fusion with chronic pain syndrome in the past with severe backache, previous history of SC with V. fib arrest, recent admission to this hospital and workup for a number acute stroke with retinal artery branch occlusion consistent with an embolic stroke with no evidence of atrial fibrillation, complete workup negative for carotid disease or any intraventricular clot in the heart, no recent active coronary issues, now comes in with * New onset confusion, poor by mouth intake in the past 2 days, acute renal failure with both combined metabolic and respiratory acidosis related to renal failure and narcotic use at home * History of shaking versus seizure activity this needs to be ruled out * Chronic pain syndrome on significant amount of narcotics, patient has also been on medical marijuana * No recent history of nonsteroidal anti-inflammatory use, no recent diarrhea, nor history of dehydration. The only new medication she has been on his Plavix * Recent Acute stroke with retinal artery branch occlusion consistant with an embolic stroke, now no other area of stroke noted, with negative MRI, negative carotid ultrasound, no evidence of atrial fibrillation * Previous History of significant smoking with all the risks for atheroembolic disease * IHD with previous stents with previous vifib arrest, now stable and recent stress test neg for active ischemia * CHronic low back pain with severe lumbar disc disease with multiple surg in the past on high dose narcotics and medical marijuana * Hypothyroidism/hypertension/hyperlipidemia appears to be stable * Ischemic heart disease appears to be stable * SIg Maribel on cpap and compliant * Morbid obesity * Small airway disease * OSteopenia with vit d def with previous work up for hypercalcemia neg with normal pth RECOMMENDATION Admitted to the hospital Watch her for any active seizure Continue antiplatelet therapy Continue Levoxyl D5 normal saline at 75 mL CPAP Hold narcotics until she is more awake Wasserman catheter to monitor monitor urine output Renal and neurology evaluation tomorrow ABG if she is worse Check prolactin level Continue her beta nik Continue amlodipine for blood pressure is elevated Hold BERTRAND inhibitor Hold famotidine and put her on proton pump inhibitor Reduce gabapentin to 300 mg 3 times a day Will resume her narcotics at a much lower dose starting tomorrow with 10 mg of oxycodone every 6 hours and will hold morphine Continue to follow urine chemistry and calculate Kaylee Keep the head of bed elevated If there is any activity like seizure start her on Keppra 1 dose of intravenous antibiotics and hold further antibiotics Urine culture Check BMP at midnight
--- NOTE | 2017-09-13 17:54 | CT SCAN REPORT ---
EXAMINATION: CT ABDOMEN AND PELVIS WITHOUT CONTRAST CLINICAL INFORMATION: Uremic. Elevated creatinine. COMPARISON: CT scan abdomen and pelvis 12/30/2014. TECHNIQUE: Multidetector volumetric imaging was performed from the superior aspect of the liver through the pubic symphysis. Sagittal and coronal reformatted images were obtained on the technologist's workstation. DLP: 863.76 mGy-cm. FINDINGS: LUNG BASES: No acute infiltrate. Small thin-walled lung cyst right lung base at posterior costophrenic angle. No pleural effusion. LIVER, GALLBLADDER, AND BILIARY TREE: In segment 4 of left lobe of liver, there are several faint hypodense lesions measuring between 8 mm and 11 mm. There is a fourth hypodensity the inferior right lobe measuring 1.5 cm. These are nonenhancing on the CAT scan of 12/30/2014 consistent with hepatic cysts. No suspicious or new lesion. There is a small coarse calcification in the left lobe of liver. The gallbladder is unremarkable with no evidence of radiopaque gallstones, gallbladder wall thickening, or obvious pericholecystic inflammatory changes. PANCREAS: Unremarkable. SPLEEN: Unremarkable. ADRENAL GLANDS: Unremarkable. KIDNEYS AND URETERS: The kidneys are normal in size, shape, and attenuation. Stable midpole cyst left kidney measuring 2.3 cm. No hydronephrosis, hydroureter, or calculi seen. No perinephric stranding. BLADDER: Wasserman catheter within the bladder. The bladder is empty. ANTERIOR ABDOMINAL WALL: Gastrointestinal Tract: There is a ventral wall hernia. Defect in the anterior abdominal wall measures 7 cm transverse. There is fat and a portion of the transverse colon herniating through the defect. This does not obstruct the colon, however. The herniated fat pocket measures approximately 8.8 x 2.7 x 5 cm. No acute change of the bowel. No bowel obstruction. No bowel wall thickening or edema. Moderate amount of scattered stool in the colon. The appendix is normal. The small-bowel loops are normal. There is a gastric band present in the right upper quadrant. LYMPH NODES: Normal. VASCULAR: Atherosclerotic vascular wall calcifications of aorta and iliac vessels without aneurysm. PELVIC VISCERA: Status post hysterectomy. OSSEOUS STRUCTURES: Degenerative spondylosis spine with orthopedic hardware fusing the lower lumbar spine. Advanced degenerative change of the hips with [id number] contact of the femoral head and acetabulum with subchondral cystic changes and spurring. IMPRESSION: 1. Ventral wall hernia. This has a nonobstructive loop of transverse colon. No acute change of the bowel. 2. Multiple hypodense lesions of liver unchanged since CAT scan 12/31/2015, hepatic cysts.
[2017-09-14 05:32] LABS: ABSOLUTE BASOPHIL COUNT 0 /CUMM (0.0-0.2); ABSOLUTE EOSINOPHIL COUNT 0.3 /CUMM (0.0-0.7); ABSOLUTE GRANULOCYTE CT 3.8 /CUMM (1.4-6.5); ABSOLUTE LYMPH COUNT 0.9 /CUMM (1.2-3.4); ABSOLUTE MONOCYTE COUNT 0.3 /CUMM (0.10-0.60); BASOPHIL % 0.1 % (0.0-2.0); EOSINOPHIL % 4.8 % (0-5); HEMATOCRIT 31.3 % (37-47); MEAN CORPUSCULAR HGB 29.3 PG (27.0-31.0); MEAN CORPUSCULAR HGB CONC 33.4 G/DL (33.0-37.0); MEAN CORPUSCULAR VOLUME 87.8 FL (81.0-99.0); MEAN PLATELET VOLUME 9.2 FL (7.4-10.4); PLATELET COUNT 160 /CUMM (130-400); RBC DISTRIBUTION WIDTH 14.3 % (11.5-14.5); RED BLOOD CELL CT 3.56 /CUMM (4.20-5.40); WHITE BLOOD CELL COUNT 5.3 /CUMM (4.8-10.8)
--- NOTE | 2017-09-14 07:40 | PN- Housestaff ---
Subjective Follow-up For: AMS ? seizures Opaite abuse Subjective: Patient's family at bedside reports jerky movements overnight and this a.m. Review of Systems Constitutional: Reports: see HPI. Objective Last 24 Hrs of Vital Signs/I&O Vital Signs Date Time Temp Pulse Resp B/P B/P Pulse O2 O2 Flow FiO2 Mean Ox Delivery Rate 09/146 98.2 70 20 122/82 94 09/14 2047 Room Air 09/14 2014 81 136/60 09/14 1537 99.3 82 18 144/60 94 Room Air 09/14 1337 97.0 80 18 138/89 97 Room Air Room Air 09/14 1238 97.0 79 18 143/93 97 Room Air Room Air 09/14 0943 70 18 111/53 95 Room Air 09/14 0845 70 111/53 09/14 0830 70 18 111/53 95 Room Air 09/14 0508 96.7 70 20 126/55 93 BIPAP Intake & Output 09/15 0800 09/15 0000 09/14 1600 Intake Total 600 Output Total Balance 600 Intake, IV 400 Intake, Oral 200 Patient 205 lb Weight Weight Bed scale Measurement Method Physical Exam General Appearance: Alert, Oriented X3, Cooperative HEENT: Atraumatic, PERRLA, EOMI Cardiovascular: Regular Rate, Normal S1, Normal S2 Lungs: Clear to Auscultation, Normal Air Movement Abdomen: Normal Bowel Sounds, Soft, No Tenderness Neurological: Normal Speech, Strength at 5/5 X4 Ext, Sensation Intact, Cranial Nerves 3-12 NL Extremities: Jerky movement of BL feet and BL arms for < 60s Current Medications: Current Medications Sig/Vanesa Start time Last Medication Dose Route Stop Time Status Admin Amlodipine Besylate 10 MG DAILY 09/14 1000 AC 09/14 PO 0845 Aspirin 81 MG DAILY 09/14 1000 DC 09/14 PO 0845 Clopidogrel Bisulfate 75 MG DAILY 09/14 1000 AC 09/14 PO 0845 Dextrose/Sodium 1,000 ML Q13H 09/13 2145 AC 09/14 Chloride IV 1237 Docusate Sodium 100 MG DAILY NEEDED PRN 09/14 1445 AC PO Gabapentin 100 MG Q8 09/14 0600 DC 09/14 PO 0845 Heparin Sodium 0 .STK-MED ONE 09/14 0618 DC (Porcine) .ROUTE Heparin Sodium 5,000 UNIT Q8 09/14 0600 AC 09/14 (Porcine) SC 0845 Levothyroxine Sodium 0.1 MG DAILY 09/14 1000 DC PO Levothyroxine Sodium 0.1 MG DAILY AC 09/14 0700 AC 09/14 PO 0845 Melatonin 5 MG AT BEDTIME 09/14 2200 AC 09/14 PO 2019 Metoprolol Tartrate 50 MG BID 09/13 2200 AC 09/14 PO 2015 Omeprazole 40 MG DAILY AC 09/14 0700 AC 09/14 PO 0845 Oxycodone HCl 10 MG Q6 PRN 09/14 1345 AC PO Polyethylene Glycol 17 GM ONCE ONE 09/14 1445 DC 09/14 PO 09/14 1446 1754 Senna 187 MG AT BEDTIME 09/14 220 AC PO Last 24 Hrs of Lab/Beau Results Last 24 Hrs of Labs/Mics: Laboratory Tests 09/14/17 0518: Anion Gap 10, Estimated GFR 24 L, BUN/Creatinine Ratio 23.8, Calcium 8.8, Phosphorus 4.8 H, Magnesium 2.1, Total Bilirubin 0.3, Direct Bilirubin 0.3, AST 23, ALT 33, Alkaline Phosphatase 55, Total Protein 5.6 L, Albumin 3.1 L, CBC w Diff MAN DIFF ORDERED, RBC 3.56 L, MCV 87.8, MCH 29.3, MCHC 33.4, RDW 14.3, MPV 9.2, Gran % 72.0, Lymphocytes % 16.5 L, Monocytes % 6.6, Eosinophils % 4.8, Basophils % 0.1, Absolute Granulocytes 3.8, Absolute Lymphocytes 0.9 L, Absolute Monocytes 0.3, Absolute Eosinophils 0.3, Absolute Basophils 0, Platelet Estimate ADEQUATE, Hypochromic-Microcytic 1+, Anisocytosis 1+ Assessment/Plan Assessment: Ms. Bass is a 62 year old female with past medical history of HTN, HLD, hypothyroidism, chronic back pain, CAD with myocardial infarction/arrest s/p coronary stents placement twelve years ago who was recently observed at [facility] for an acute visual change suspiscious for CVA, diagnosed with retinal artery occlusion BIBA for AMS and jerky movements AMS and Metabolic acidosis most likely 2/2 opiates abuse vs ? seizure Patient has a history of chronic back pain and family reports she has been using chronic opiate medications for > 10 years. U tox positive for >4000 opiates and cannabis. Patient's family reports patient intermittently has jerky movements while conscious. * EEG to r/o seizure activity * Neurology recommendations appreciated SERG most likely 2/2 dehydration, ACEi * Avoid nephrotoxins, no nsaids, hold acei * continue IVF History of chronic back pain * Continue Oxycodone with goal to taper off Diet: Heart healthy DVT ppx-heparin 5000 units subcutaneous Q8H Code: Full Problem List: 1. Obesity 2. Opiate abuse, continuous 3. Back pain Pain Ratin Pain Location: Back Pain Goal: Pain 4 or less Pain Plan: Oxycodone Tomorrow's Labs & Rationales: BEP for renal function
--- NOTE | 2017-09-14 08:43 | PN- Student ---
Subjective Subjective: 62 year old with a PMHx of migraine, CAD (s/p MT and 2 stents), cardiomyopathy, HTN, HL, chronic lumbar back pain s/p multiple surgeries and managed with opioids, obesity, OA with difficulty ambulating, and borderline DM who was evaluated at [facility] about a week ago for CVA is being admitted to our service after presenting to the ED 2/2 difficulty to arouse, lethargy, and confusion followed by upper extremeties shaking. Overnight, there were no events. The patient denies SOB, pain, or changes in mental status. However, her (Abdoulaye ), endorsed mental slowing and amnesia regarding the yesterday and the events that led to her hospitalization. Objective Objective: Relevant Labs: [09/14/17] H/H 10.4/31.3; BUN 50, CR 2.1, TP 5.6, Albumin 2.1, pH 7.24, HCO3 18, O2 93, P 4.8 Imaging: [09/14/17] MRI HEAD-IMPRESSION: 1. There are no acute bleeds or infarcts. 2. There are mild chronic microvascular ischemic changes. [09/13/17] CT ABDOMEN/PELVIS-IMPRESSION: 1. Ventral wall hernia. This has a nonobstructive loop of transverse colon. No acute change of the bowel. 2. Multiple hypodense lesions of liver unchanged since CAT scan 12/31/2015, hepatic cysts. [09/13/17] CXR-IMPRESSION: 1. The lung griffin are poorly expanded with resultant bronchovascular crowding at the bases. If indicated, repeat chest x-ray in PA and lateral projections for better assessment. [09/13/17] CT HEAD-IMPRESSION: No acute intracranial pathology, unchanged since 09/07/2017. Physical Examination: General: AOx2. Patient lethargic, expressed difficulty with following the task at hand, with retarded mentation and verbalization. Neuro: CN 2-12 intact. PERRLA. Cardiovascular: RR, no murmurs, rubs, or gallops Lungs: Episodic breathing with periods of apnea Abdomen: Soft, tender to palpation in the right hemisphere Extremeties: No edema, pulses 2+ bilaterally Results Results: Laboratory Tests 09/14/17 0518: Anion Gap 10, Estimated GFR 24 L, BUN/Creatinine Ratio 23.8, Calcium 8.8, Phosphorus 4.8 H, Magnesium 2.1, Total Bilirubin 0.3, Direct Bilirubin 0.3, AST 23, ALT 33, Alkaline Phosphatase 55, Total Protein 5.6 L, Albumin 3.1 L, CBC w Diff NO MAN DIFF REQ, RBC 3.56 L, MCV 87.8, MCH 29.3, MCHC 33.4, RDW 14.3, MPV 9.2, Gran % 72.0, Lymphocytes % 16.5 L, Monocytes % 6.6, Eosinophils % 4.8, Basophils % 0.1, Absolute Granulocytes 3.8, Absolute Lymphocytes 0.9 L, Absolute Monocytes 0.3, Absolute Eosinophils 0.3, Absolute Basophils 0 09/14/17 0053: Anion Gap 11, Estimated GFR 21 L, BUN/Creatinine Ratio 23.0 09/13/17 203: Prolactin Cancelled 09/13/17 1625: pH 7.24 *L, pCO2 44, pO2 82, HCO3 18 L, ABG O2 Sat (Measured) 93.0 L, P-50 ( Temp Corrected) N, Carboxyhemoglobin 1.2 L, O2 Concentration % 2L, Temperature 97.7, O2 Delivery Method NC, Phlebotomy Draw Site RIGHT RADIAL 09/13/17 1343: Ammonia < 9 L, CBC w Diff NO MAN DIFF REQ, RBC 3.93 L, MCV 87.7, MCH 29.6, MCHC 33.8, RDW 13.9, MPV 9.4, Gran % 73.5, Lymphocytes % 15.4 L, Monocytes % 7.3, Eosinophils % 3.2, Basophils % 0.6, Absolute Granulocytes 5.1, Absolute Lymphocytes 1.1 L, Absolute Monocytes 0.5, Absolute Eosinophils 0.2, Absolute Basophils 0 09/13/17 1315: Anion Gap 14, Estimated GFR 12 L, BUN/Creatinine Ratio 17.3, Glucose 93, Lactic Acid 0.6 L, Calcium 9.0, Total Bilirubin 0.3, AST 22, ALT 31, Alkaline Phosphatase 65, Troponin I < 0.01, Total Protein 6.5, Albumin 3.9, Globulin 2.6, Albumin/Globulin Ratio 1.5, TSH 0.759, Prolactin 23.9 H, PT 11.3, INR 1.08, APTT 23 L, Serum Alcohol < 10.0 09/13/17 1259: Urinalysis LIGHT H, Urine Color YEL, Urine Clarity CLEAR, Urine pH 6.0, Ur Specific [place] 1.020, Urine Protein NEG, Urine Ketones NEG, Urine Nitrite NEG, Urine Bilirubin NEG, Urine Urobilinogen 0.2, Ur Leukocyte Esterase TRACE H, Ur Microscopic SEDIMENT EXAMINED, Urine WBC 1-3 H, Ur Epithelial Cells MOD H, Urine Bacteria FEW H, Hyaline Casts 1-3 H, Urine Mucus FEW, Urine Hemoglobin NEG, Urine Glucose NEG 09/13/17 1259: Urine Opiates Screen > 4000.00 H, Methadone Screen 53, Barbiturate Screen < 60, Ur Phencyclidine Scrn < 6.00, Amphetamines Screen < 100, U Benzodiazepines Scrn < 85, Urine Cocaine Screen < 50, Urine Cannabis Screen 72.40 H, Urine Osmolality 302, Ur Random Creatinine 134.7, Ur Random Sodium 37, Ur Random Potassium 25.9, Fraction Sodium Excret 0.7 09/13/17 1254: Ammonia Cancelled, Serum Alcohol Cancelled Microbiology 09/13 125 URINE ROUT: Urine Culture - RES Assessment/Plan Assessment: 62 year old with a PMHx of migraine, CAD (s/p MT and 2 stents), cardiomyopathy, HTN, HL, chronic lumbar back pain s/p multiple surgeries and managed with opioids, obesity, OA with difficulty ambulating, and borderline DM who was evaluated at [facility] about a week ago for CVA is being admitted to our service after presenting to the ED 2/2 difficulty to arouse, lethargy, and confusion followed by upper extremeties shaking. On physical examination, the patient was AOx3, but was unable to recall yesterday or the events that led to her admission. Her mental faculties were retarded, and she had trouble focusing on the task at hand. Furthermore, she had bilateral inspiratory crackles over all lung griffin and episodic breathing with periods of apnea. Problem List: AMS SERG Uncompensated metabolic acidosis + Apnea HyperP Hypothyroidism CAD, HTN, HL H/H 10.4/31.3; BUN 50, CR 2.1, TP 5.6, Albumin 2.1, pH 7.24, HCO3 18, O2 93, P 4.8 1) Altered mental status: Mental status has waned since admission evaluation yesterday evening. Patient was AOx3, but was unable to recall yesterday's events and why she is in the hospital. MRI of her head was negative for intracranial bleeding and showed mild chronic microvascular changes. -Continue to monitor neuro q4h -Continue to monitor on telemetry -Continue anticoagulation 2) Acute kidney injury: Prerenal azotemia. BUN 50, CR 2.1, FeNa <1% -Continue to monitor renal function with BEP qAM -Avoid nephrotoxins 3) Uncompensated metabolic acidosis: Acidosis likely 2/2 to SERG, which in not compensated for because of apnea and somnolence. ABG 7.24/44/82/18 -TRC evaluation, start NIPPV support -Withhold respiratory depressants 4) HyperP: Mildly elevated @ 4.8. Likely 2/2 a combination of metabolic and respiratory acidosis and impaired renal function -Continue to monitor lytes qd -Consider phosphate binder and dietary restriction 5) HTN, CAD, HL: -Continue home medications 6) hypothyroidism: -Continue home medications Code Status: DNR/DNI Diet: Pure and thick liquid diet DVT prophylaxis: 5000U SQ heparin
[2017-09-14 09:43] VITALS: BP 111/53
--- NOTE | 2017-09-14 12:15 | MRI REPORT ---
EXAMINATION: MR BRAIN WITHOUT CONTRAST CLINICAL INFORMATION: Altered mental status. Recent loss of vision. Assess for stroke. COMPARISON: CT scan of the head 09/13/2017. TECHNIQUE: MRI of the brain without contrast was obtained using routine sequences. FINDINGS: No diffusion abnormalities are identified to suggest an acute or subacute infarct. No mass effect or midline shift is seen. The ventricles are normal in size. There are a few scattered foci of T2 and FLAIR hyperintensity in the periventricular and subcortical white matter, consistent with chronic microvascular ischemic changes. No extra-axial fluid collections are seen. The brainstem and cerebellum are normal. 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 No pathologic magnetic susceptibility artifact is identified on the gradient refocused acquisition. The craniovertebral junction, marrow signal, and midline structures are normal. The major intracranial flow-voids at the level of the pala of [place] are preserved. The dural venous sinus flow-voids are maintained. The mastoid air cells and paranasal sinuses are well-aerated. IMPRESSION: 1. There are no acute bleeds or infarcts. 2. There are mild chronic microvascular ischemic changes.
--- NOTE | 2017-09-14 13:39 | PN- Pulmonary ---
Subjective HPI/Critical Care Issues: DOing better afebrile occ confusion and hallucinations noted stable other falcon PT did tell me that she took exedrine for migrane Objective Current Medications: Current Medications Sig/Vanesa Start time Last Medication Dose Route Stop Time Status Admin Amlodipine Besylate 10 MG DAILY 09/14 1000 AC 09/14 PO 0845 Aspirin 81 MG DAILY 09/14 1000 DC 09/14 PO 0845 Ceftriaxone Sodium 0 .STK-MED ONE 09/13 1511 DC .ROUTE Ceftriaxone Sodium 1,000 MG ONCE ONE 09/13 1500 DC 09/13 IV 09/13 1501 1523 Clopidogrel Bisulfate 75 MG DAILY 09/14 1000 AC 09/14 PO 0845 Dextrose/Sodium 1,000 ML Q13H 09/13 2145 AC 09/14 Chloride IV 1237 Gabapentin 100 MG Q8 09/14 0600 DC 09/14 PO 0845 Heparin Sodium 0 .STK-MED ONE 09/14 0618 DC (Porcine) .ROUTE Heparin Sodium 5,000 UNIT Q8 09/14 0600 AC 09/14 (Porcine) SC 0845 Levothyroxine Sodium 0.1 MG DAILY 09/14 1000 DC PO Levothyroxine Sodium 0.1 MG DAILY AC 09/14 0700 AC 09/14 PO 0845 Metoprolol Tartrate 0 .STK-MED ONE 09/13 2334 DC PO Metoprolol Tartrate 50 MG BID 09/13 2200 AC PO Omeprazole 40 MG DAILY AC 09/14 0700 AC 09/14 PO 0845 Oxycodone HCl 10 MG Q6 PRN 09/14 1345 AC PO Sodium Chloride 1,000 ML BOLUS ONE 09/13 1445 DC 09/13 IV 09/13 1544 1450 Sodium Chloride 1,000 ML ONCE ONE 09/13 1430 DC 09/13 IV 09/13 2109 1716 Vital Signs & I&O Last 24 Hrs of Vitals and I&O: Vital Signs Date Time Temp Pulse Resp B/P B/P Pulse O2 O2 Flow FiO2 Mean Ox Delivery Rate 09/14 1337 97.0 80 18 138/89 97 Room Air Room Air 09/14 1238 97.0 79 18 143/93 97 Room Air Room Air 09/14 0943 70 18 111/53 95 Room Air 09/14 0845 70 111/53 09/14 0830 70 18 111/53 95 Room Air 09/14 0508 96.7 70 20 126/55 93 BIPAP 09/13 2335 60 106/51 09/13 2332 97.6 66 20 106/51 92 CPAP 09/13 2230 69 20 93 CPAP Room Air 09/13 2103 97.3 62 18 140/68 96 09/13 2030 94 CPAP Room Air 09/13 1929 98.1 63 20 126/78 95 Room Air 09/13 1755 97.9 77 18 119/54 97 Nasal 2.0L Cannula 09/13 1527 97.7 71 20 124/57 97 Nasal 2.0L Cannula Impression/Plan Impression/Plan Impression/Plan: General Appearance Alert, Oriented X3, Cooperative, No Acute Distress, obese Cardiovascular Regular Rate, Normal S1, Normal S2, No Murmurs, no CVA tenderness Lungs diminished air entry but clear to auscultation, no wheezes or rhonchi Abdomen Normal Bowel Sounds, Soft, No Tenderness, No Masses, obese, large ventral hernia Extremities No Clubbing, No Cyanosis, Normal Pulses, trace bilateral pedal edema IMPRESSION This is a 62-year-old lady with history of ischemic heart disease with previous stent with no active ischemic heart, hypertension, hyperlipidemia, morbid obesity, hypothyroidism on appropriate supplementation, previous history of multiple lumbar surgeries with fusion with chronic pain syndrome in the past with severe backache, previous history of AL with V. fib arrest, recent admission to this hospital and workup for a number acute stroke with retinal artery branch occlusion consistent with an embolic stroke with no evidence of atrial fibrillation, complete workup negative for carotid disease or any intraventricular clot in the heart, no recent active coronary issues, now admitted with * New onset confusion, poor by mouth intake in the past 2 days, acute renal failure with both combined metabolic and respiratory acidosis related to renal failure and narcotic use at home * Acute renal failure now resolving prob related to NSAID and dehydration due to poor po intake compounded by arb use * History of shaking versus seizure activity this needs to be ruled out / Prob related to meds * Chronic pain syndrome on significant amount of narcotics, patient has also been on medical marijuana * No recent diarrhea, nor history of dehydration. The only new medication she has been on his Plavix/ PTdid take exedrine migrane * Recent Acute stroke with retinal artery branch occlusion consistant with an embolic stroke, now no other area of stroke noted, with negative MRI, negative carotid ultrasound, no evidence of atrial fibrillation * Previous History of significant smoking with all the risks for atheroembolic disease * IHD with previous stents with previous vifib arrest, now stable and recent stress test neg for active ischemia * CHronic low back pain with severe lumbar disc disease with multiple surg in the past on high dose narcotics and medical marijuana * Hypothyroidism/hypertension/hyperlipidemia appears to be stable * Ischemic heart disease appears to be stable * SIg Lizeth on cpap and compliant * Morbid obesity * Small airway disease * OSteopenia with vit d def with previous work up for hypercalcemia neg with normal pth RECOMMENDATION Increase po intake COnt ivf and reduce rate to 50 cc per hour till am Cont plavix Dc asprin Stool for heme Follow crit Ask hematology lab to do a peripheral smear to rule out schistocytes Dc [place] Start on clark and docusate One dose of miralax DC flexaril DC gabapentin IF pain starts or if she shows signs of withdrawal start oxycodone 10 mg q6 hrs prn Resume lipid lowering rx IF BP becomes an issue will use low dose hydrallazine till creat is stable (cont amlodapine and metoprolol) EEG Discussed with the family
[2017-09-14 15:37] VITALS: BP 144/60
--- NOTE | 2017-09-14 16:21 | Cons- Cardiology ---
General Information and HPI Consulting Request Date of Consult: 09/14/17 Requested By: Loyda MYLES,Noah Mann Reason for Consult: mental status changes; history of recent retinal artery embolus; known coronary artery disease Source of Information: family, old records Exam Limitations: confusion History of Present Illness: the patient is a 62-year-old female, known to me, with a past mental history of hypertension, hyperlipidemia, coronary artery disease with prior myocardial infarction and cardiac arrest, coronary stenting 12 years ago, who was just discharged from [facility] after an admission for visual changes with right retinal artery occlusion. Transthoracic echocardiogram and carotid ultrasound at that time were negative. The patient was to be scheduled for outpatient event monitor and possible NISHANT. The patient was stable at the time of discharge. However, earlier today, the patient was noted to be difficult to arouse and lethargic as well as confused. She was brought to the emergency room for further evaluation. Intermittent shaking was noted. There was no evidence of any acute cardiac event. the patient is admitted to the hospital for further evaluation and monitoring. Today, her mental status is somewhat better. According to the , she remains intermittently confused but is much more alert and conversant. at the moment, she denies any cardiac symptoms. Allergies/Medications Allergies: Coded Allergies: Iodinated Contrast- Oral and IV Dye (IODINATED CONTRAST MEDIA - IV DYE) (HIVES ALL OVER BODY AND SOB PER PT 10/03/15) duloxetine (From CYMBALTA) (NAUSEA 09/07/17) potassium (Intermediate, THROUGH IV, PT REPORTS BURINING GOING THRU IV ) adhesive tape (Mild, REDNESS/IRRITATION AT SITE 10/03/15) Home Med List: Amlodipine Besylate 10 MG TABLET 1 TAB PO DAILY HEART (Reported) Aspirin (Aspirin*) 81 MG TAB.CHEW 1 TAB PO DAILY HEART (Reported) Bisacodyl (Dulcolax) 5 MG TABLET.DR 1 TAB PO DAILY contipation (Reported) Cholecalciferol (Vitamin D3) (Vitamin D) 1,000 UNIT TABLET 2 TAB PO DAILY supplement (Reported) Clopidogrel Bisulfate (Plavix) 75 MG TABLET 75 MG PO DAILY STROKE . Cyclobenzaprine HCl 10 MG TABLET 1 TAB PO DAILY PAIN (Reported) Ezetimibe (Zetia) 10 MG TABLET 1 TAB PO DAILY hlp (Reported) Fenofibrate Nanocrystallized (Fenofibrate) 145 MG TABLET 1 TAB PO DAILY hlp ( Reported) Gabapentin (Neurontin) 300 MG CAPSULE 2 CAP PO TID pain (Reported) Levothyroxine Sodium 100 MCG TABLET 1 TAB PO DAILY thyriod (Reported) Metoprolol Tartrate (Lopressor) 50 MG TABLET 1 TAB PO BID HEART (Reported) Morphine Sulfate (Ms Contin) 30 MG TABLET.ER 1 TAB PO BIDP pain (Reported) Oxycodone HCl 10 MG TABLET 1 TAB PO 4XDP pain (Reported) Ranitidine HCl (Heartburn Relief) 150 MG TABLET 1 TAB PO DAILY PRN heartburn (Reported) Rosuvastatin Calcium (Crestor) 40 MG TABLET 1 TAB PO DAILY HEART (Reported) Valsartan 320 MG TABLET 1 TAB PO DAILY HEART (Reported) Current Medications: Current Medications Sig/Vanesa Start time Last Medication Dose Route Stop Time Status Admin Amlodipine Besylate 10 MG DAILY 09/14 1000 AC 09/14 PO 0845 Aspirin 81 MG DAILY 09/14 1000 DC 09/14 PO 0845 Clopidogrel Bisulfate 75 MG DAILY 09/14 1000 AC 09/14 PO 0845 Dextrose/Sodium 1,000 ML Q13H 09/13 2145 AC 09/14 Chloride IV 1237 Docusate Sodium 100 MG DAILY NEEDED PRN 09/14 1445 AC PO Gabapentin 100 MG Q8 09/14 0600 DC 09/14 PO 0845 Heparin Sodium 0 .STK-MED ONE 09/14 0618 DC (Porcine) .ROUTE Heparin Sodium 5,000 UNIT Q8 09/14 0600 AC 09/14 (Porcine) SC 0845 Levothyroxine Sodium 0.1 MG DAILY 09/14 1000 DC PO Levothyroxine Sodium 0.1 MG DAILY AC 09/14 0700 AC 09/14 PO 0845 Metoprolol Tartrate 0 .STK-MED ONE 09/13 2334 DC PO Metoprolol Tartrate 50 MG BID 09/13 2200 AC PO Omeprazole 40 MG DAILY AC 09/14 0700 AC 09/14 PO 0845 Oxycodone HCl 10 MG Q6 PRN 09/14 1345 AC PO Polyethylene Glycol 17 GM ONCE ONE 09/14 1445 DC PO 09/14 1446 Senna 187 MG AT BEDTIME 09/14 2200 AC PO Sodium Chloride 1,000 ML ONCE ONE 09/13 1430 DC 09/13 IV 02/14 2109 1716 Past History Travel History Traveled to [place] past 21 day No Medical History Blood Transfusion Hx: No Neurological: migraine, TIA, vertigo EENT: NONE Cardiovascular: CAD (S/P 2 stents), cardiomyopathy, hypertension, hyperlipidemia , [place] 12 YEARS AGO 2 STENTS Respiratory: obstructive sleep apnea Gastrointestinal: GERD, umbilical hernia, SBO 13 YRS AGGO ABDOMINAL HERNIA Hepatic: "FATTY LIVER" Renal: NONE Musculoskeletal: chronic back pain, disk herniation, osteoarthritis, sciatica Psychiatric: NONE Endocrine: hypothyroidism, obesity, vitamin D deficiency, BOARDERLINE DM Blood Disorders: NONE Cancer(s): basal cell carcinoma [employer]ER/Reproductive: 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 Home Services at Home: None Smoking Status: Former Smoker ETOH Use: denies use Illicit Drug Use: denies illicit drug use Functional Ability ADLs Independent: dressing, eating, toileting, bathing. Ambulation: cane IADLs Independent: shopping, housework, finances, food prep, telephone, transportation , medication admin. Exam & Diagnostic Data Vital Signs and I&O Vital Signs Date Time Temp Pulse Resp B/P B/P Pulse O2 O2 Flow FiO2 Mean Ox Delivery Rate 09/14 1537 99.3 82 18 144/60 94 Room Air 09/14 1337 97.0 80 18 138/89 97 Room Air Room Air 09/14 1238 97.0 79 18 143/93 97 Room Air Room Air 09/14 0943 70 18 111/53 95 Room Air 09/14 0845 70 111/53 09/14 0830 70 18 111/53 95 Room Air 09/14 0508 96.7 70 20 126/55 93 BIPAP 09/13 2335 60 106/51 09/13 2332 97.6 66 20 106/51 92 CPAP 09/13 2230 69 20 93 CPAP Room Air 09/13 2103 97.3 62 18 140/68 96 09/13 2030 94 CPAP Room Air 09/13 1929 98.1 63 20 126/78 95 Room Air 09/13 1755 97.9 77 18 119/54 97 Nasal 2.0L Cannula Intake & Output 09/14 1600 09/14 0800 09/14 0000 09/13 1600 09/13 0800 09/13 0000 Intake Total 0 Output Total 200 Balance -200 Intake, Oral 0 Output, Urine 200 Patient 205 lb 220 lb Weight Weight Bed scale Reported by Patient Measurement Method Labs/Beau Results: Laboratory Tests 09/14 09/14 09/13 0518 0053 2038 Chemistry Sodium (137 - 145 mmol/L) 140 140 Potassium (3.5 - 5.1 mmol/L) 4.3 4.3 Chloride (98 - 107 mmol/L) 108 H 112 H Carbon Dioxide (22 - 30 mmol/L) 22 16 L Anion Gap (5 - 16) 10 11 BUN (7 - 17 mg/dL) 50 H 53 H Creatinine (0.5 - 1.0 mg/dL) 2.1 H 2.3 H Estimated GFR (>60 ml/min) 24 L 21 L BUN/Creatinine Ratio (7 - 25 %) 23.8 23.0 Calcium (8.4 - 10.2 mg/dL) 8.8 Phosphorus (2.5 - 4.5 mg/dL) 4.8 H Magnesium (1.6 - 2.3 mg/dL) 2.1 Total Bilirubin (0.2 - 1.3 mg/dL) 0.3 Direct Bilirubin (< 0.4 mg/dL) 0.3 AST (14 - 36 U/L) 23 ALT (9 - 52 U/L) 33 Alkaline Phosphatase (<127 U/L) 55 Total Protein (6.3 - 8.2 g/dL) 5.6 L Albumin (3.5 - 5.0 g/dL) 3.1 L Prolactin Cancelled Hematology CBC w Diff MAN DIFF ORDERED WBC (4.8 - 10.8 /CUMM) 5.3 RBC (4.20 - 5.40 /CUMM) 3.56 L Hgb (12.0 - 16.0 G/DL) 10.4 L Hct (37 - 47 %) 31.3 L MCV (81.0 - 99.0 FL) 87.8 MCH (27.0 - 31.0 PG) 29.3 MCHC (33.0 - 37.0 G/DL) 33.4 RDW (11.5 - 14.5 %) 14.3 Plt Count (130 - 400 /CUMM) 160 MPV (7.4 - 10.4 FL) 9.2 Gran % (42.2 - 75.2 %) 72.0 Lymphocytes % (20.5 - 51.1 %) 16.5 L Monocytes % (1.7 - 9.3 %) 6.6 Eosinophils % (0 - 5 %) 4.8 Basophils % (0.0 - 2.0 %) 0.1 Absolute Granulocytes (1.4 - 6.5 /CUMM) 3.8 Absolute Lymphocytes (1.2 - 3.4 /CUMM) 0.9 L Absolute Monocytes (0.10 - 0.60 /CUMM) 0.3 Absolute Eosinophils (0.0 - 0.7 /CUMM) 0.3 Absolute Basophils (0.0 - 0.2 /CUMM) 0 Platelet Estimate (ADEQUATE) ADEQUATE Hypochromic-Microcytic 1+ Anisocytosis + 09/13 09/13 1625 1343 Blood Gas pH (7.35 - 7.45 PH) 7.24 *L pCO2 (35 - 45 TORR) 44 pO2 (80 - 100 TORR) 82 HCO3 (21 - 28 MEQ/L) 18 L ABG O2 Sat (Measured) (>96.0 %) 93.0 L P-50 (Temp Corrected) N Carboxyhemoglobin (1.5 - 5.0 %) 1.2 L O2 Concentration % 2L Temperature (97.0 - 100.0 FARH) 97.7 O2 Delivery Method NC Chemistry Ammonia (9 - 30 umol/L) < 9 L Hematology CBC w Diff NO MAN DIFF REQ WBC (4.8 - 10.8 /CUMM) 7.0 RBC (4.20 - 5.40 /CUMM) 3.93 L Hgb (12.0 - 16.0 G/DL) 11.6 L Hct (37 - 47 %) 34.5 L MCV (81.0 - 99.0 FL) 87.7 MCH (27.0 - 31.0 PG) 29.6 MCHC (33.0 - 37.0 G/DL) 33.8 RDW (11.5 - 14.5 %) 13.9 Plt Count (130 - 400 /CUMM) 180 MPV (7.4 - 10.4 FL) 9.4 Gran % (42.2 - 75.2 %) 73.5 Lymphocytes % (20.5 - 51.1 %) 15.4 L Monocytes % (1.7 - 9.3 %) 7.3 Eosinophils % (0 - 5 %) 3.2 Basophils % (0.0 - 2.0 %) 0.6 Absolute Granulocytes (1.4 - 6.5 /CUMM) 5.1 Absolute Lymphocytes (1.2 - 3.4 /CUMM) 1.1 L Absolute Monocytes (0.10 - 0.60 /CUMM) 0.5 Absolute Eosinophils (0.0 - 0.7 /CUMM) 0.2 Absolute Basophils (0.0 - 0.2 /CUMM) 0 Miscellaneous Phlebotomy Draw Site RIGHT RADIAL 09/13 09/13 1315 1259 Chemistry Sodium (137 - 145 mmol/L) 137 Potassium (3.5 - 5.1 mmol/L) 4.7 Chloride (98 - 107 mmol/L) 102 Carbon Dioxide (22 - 30 mmol/L) 20 L Anion Gap (5 - 16) 14 BUN (7 - 17 mg/dL) 64 H Creatinine (0.5 - 1.0 mg/dL) 3.7 H Estimated GFR (>60 ml/min) 12 L BUN/Creatinine Ratio (7 - 25 %) 17.3 Glucose (65 - 99 mg/dL) 93 Lactic Acid (0.7 - 2.1 mmol/L) 0.6 L Calcium (8.4 - 10.2 mg/dL) 9.0 Total Bilirubin (0.2 - 1.3 mg/dL) 0.3 AST (14 - 36 U/L) 22 ALT (9 - 52 U/L) 31 Alkaline Phosphatase (<127 U/L) 65 Troponin I (< 0.11 ng/ml) < 0.01 Total Protein (6.3 - 8.2 g/dL) 6.5 Albumin (3.5 - 5.0 g/dL) 3.9 Globulin (1.9 - 4.2 gm/dL) 2.6 Albumin/Globulin Ratio (1.1 - 2.2 %) 1.5 TSH (0.270 - 4.200 uIU/mL) 0.759 Prolactin (3.0 - 18.6 ng/mL) 23.9 H Coagulation PT (9.4 - 12.5 SEC) 11.3 INR (0.90 - 1.19) 1.08 APTT (25 - 37 SEC) 23 L Toxicology Serum Alcohol (<10 MG/DL) < 10.0 Urines Urinalysis LIGHT H Urine Color (YEL,AMB,STR) YEL Urine Clarity (CLEAR) CLEAR Urine pH (5.0 - 8.0) 6.0 Ur Specific [place] (1.001 - 1.035) 1.020 Urine Protein (NEG,<30 MG/DL) NEG Urine Ketones (NEG) NEG Urine Nitrite (NEG) NEG Urine Bilirubin (NEG) NEG Urine Urobilinogen (0.1 - 1.0 EU/dl) 0.2 Ur Leukocyte Esterase (NEG) TRACE H Ur Microscopic SEDIMENT EXAMINED Urine WBC (0 - 2 /HPF) 1-3 H Ur Epithelial Cells (NONE,FEW) MOD H Urine Bacteria (NEG/NONE) FEW H Hyaline Casts (0/LPF) 1-3 H Urine Mucus (FEW,NONE) FEW Urine Hemoglobin (NEG) NEG Urine Glucose (N MG/DL) NEG 09/13 09/13 1259 1254 Chemistry Ammonia Cancelled Toxicology Urine Opiates Screen (>2000 NG/ML) > 4000.00 H Methadone Screen (>300 NG/ML) 53 Barbiturate Screen (>200 NG/ML) < 60 Ur Phencyclidine Scrn (>25 NG/ML) < 6.00 Amphetamines Screen (>1000 NG/ML) < 100 U Benzodiazepines Scrn (>200 NG/ML) < 85 Urine Cocaine Screen (>300 NG/ML) < 50 Urine Cannabis Screen (>50 NG/ML) 72.40 H Serum Alcohol Cancelled Urines Urine Osmolality (300 - 1000 MOSM/KG) 302 Ur Random Creatinine (mg/dL) 134.7 Ur Random Sodium (30 - 90 mmol/L) 37 Ur Random Potassium (mmol/L) 25.9 Fraction Sodium Excret (<1% %) 0.7 Assessment/Plan Assessment/Plan assessment: 1. New onset mental status changes/confusion, possibly related to medications 2. History of coronary artery disease, status post multiple stents and distant cardiac arrest 3. Acute renal failure-improving 4. history of recent visual changes with evidence of right retinal artery occlusion, consistent with retinal artery embolus 5.hypothyroidism 6. Chronic pain syndrome 7. Sleep apnea on CPAP Recommendations: -While in the hospital, I would monitor for now on telemetry to rule out any evidence of paroxysmal atrial arrhythmias -No need to repeat echocardiogram -The patient will eventually need an event monitor and possibly a NISHANT to better guide treatment of her embolic retinal artery issues. -Of note, the patient had a recent pharmacologic nuclear stress test in preparation for possible bariatric surgery which was normal. Consult Acknowledgment - Thank you for your consult request.
--- NOTE | 2017-09-14 20:23 | Cons- Neurology ---
General Information and HPI Consulting Request Date of Consult: 09/14/17 Requested By: Loyda MYLES,Noah Mann History of Present Illness: 62-year-old female who presented yesterday to Hospital with confusional state She has spotty recollection of the event She believes that the problem occurred upon awakening although medical charts seems to state that she awakens when shopping returned and then was found by her to be confused and lethargic She recalls that she had a headache but states that she has had a headache for the past few weeks found her confused but apparently non-focal Patient states that she is on number of medications but does not believe that she took more than she should She has also recently been on medical marijuana but states that she buys the marijuana from a certified dispenser She denies any illicit drugs She has persistent mild visual deficit on the right eye which was diagnosed recently as a retinal occlusion There was no observed seizure although patient was apparently not observed after she first came home from shopping She denies any similar events There was no history of fever Allergies/Medications Allergies: Coded Allergies: Iodinated Contrast- Oral and IV Dye (IODINATED CONTRAST MEDIA - IV DYE) (HIVES ALL OVER BODY AND SOB PER PT 10/03/15) duloxetine (From CYMBALTA) (NAUSEA 09/07/17) potassium (Intermediate, THROUGH IV, PT REPORTS BURINING GOING THRU IV ) adhesive tape (Mild, REDNESS/IRRITATION AT SITE 10/03/15) Home Med List: Amlodipine Besylate 10 MG TABLET 1 TAB PO DAILY HEART (Reported) Aspirin (Aspirin*) 81 MG TAB.CHEW 1 TAB PO DAILY HEART (Reported) Bisacodyl (Dulcolax) 5 MG TABLET.DR 1 TAB PO DAILY contipation (Reported) Cholecalciferol (Vitamin D3) (Vitamin D) 1,000 UNIT TABLET 2 TAB PO DAILY supplement (Reported) Clopidogrel Bisulfate (Plavix) 75 MG TABLET 75 MG PO DAILY STROKE . Cyclobenzaprine HCl 10 MG TABLET 1 TAB PO DAILY PAIN (Reported) Ezetimibe (Zetia) 10 MG TABLET 1 TAB PO DAILY hlp (Reported) Fenofibrate Nanocrystallized (Fenofibrate) 145 MG TABLET 1 TAB PO DAILY hlp ( Reported) Gabapentin (Neurontin) 300 MG CAPSULE 2 CAP PO TID pain (Reported) Levothyroxine Sodium 100 MCG TABLET 1 TAB PO DAILY thyriod (Reported) Metoprolol Tartrate (Lopressor) 50 MG TABLET 1 TAB PO BID HEART (Reported) Morphine Sulfate (Ms Contin) 30 MG TABLET.ER 1 TAB PO BIDP pain (Reported) Oxycodone HCl 10 MG TABLET 1 TAB PO 4XDP pain (Reported) Ranitidine HCl (Heartburn Relief) 150 MG TABLET 1 TAB PO DAILY PRN heartburn (Reported) Rosuvastatin Calcium (Crestor) 40 MG TABLET 1 TAB PO DAILY HEART (Reported) Valsartan 320 MG TABLET 1 TAB PO DAILY HEART (Reported) Current Medications: Current Medications Sig/Vanesa Start time Last Medication Dose Route Stop Time Status Admin Amlodipine Besylate 10 MG DAILY 09/14 1000 AC 09/14 PO 0845 Aspirin 81 MG DAILY 09/14 1000 DC 09/14 PO 0845 Clopidogrel Bisulfate 75 MG DAILY 09/14 1000 AC 09/14 PO 0845 Dextrose/Sodium 1,000 ML Q13H 09/13 2145 AC 09/14 Chloride IV 1237 Docusate Sodium 100 MG DAILY NEEDED PRN 09/14 1445 AC PO Gabapentin 100 MG Q8 09/14 0600 DC 09/14 PO 0845 Heparin Sodium 0 .STK-MED ONE 09/14 0618 DC (Porcine) .ROUTE Heparin Sodium 5,000 UNIT Q8 09/14 0600 AC 09/14 (Porcine) SC 0845 Levothyroxine Sodium 0.1 MG DAILY 09/14 1000 DC PO Levothyroxine Sodium 0.1 MG DAILY AC 09/14 0700 AC 09/14 PO 0845 Metoprolol Tartrate 0 .STK-MED ONE 09/13 2334 DC PO Metoprolol Tartrate 50 MG BID 09/13 2200 AC PO Omeprazole 40 MG DAILY AC 09/14 0700 AC 09/14 PO 0845 Oxycodone HCl 10 MG Q6 PRN 09/14 1345 AC PO Polyethylene Glycol 17 GM ONCE ONE 09/14 1445 DC 09/14 PO 09/14 1446 1754 Senna 187 MG AT BEDTIME 09/14 2200 AC PO Sodium Chloride 1,000 ML ONCE ONE 09/13 1430 DC 09/13 IV 09/13 2109 1716 Review of Systems Review of Systems: Persistent chronic headache Visual loss right eye No diplopia No difficulty swallowing No chest pains or breathing difficulties She does have sleep apnea and uses a mask No vomiting or incontinence No Focal weakness The sense of paresthesia in the face which resolved No fall or head trauma Other systems reviewed and negative Past History Travel History Traveled to [place] past 21 day No Medical History Blood Transfusion Hx: No Neurological: migraine, TIA, vertigo EENT: NONE Cardiovascular: CAD (S/P 2 stents), cardiomyopathy, hypertension, hyperlipidemia , [place] 12 YEARS AGO 2 STENTS Respiratory: obstructive sleep apnea Gastrointestinal: GERD, umbilical hernia, upper GI bleed, SBO 13 YRS AGGO ABDOMINAL HERNIA Hepatic: "FATTY LIVER" Renal: NONE Musculoskeletal: chronic back pain, disk herniation, osteoarthritis, sciatica Psychiatric: NONE Endocrine: hypothyroidism, obesity, vitamin D deficiency, BOARDERLINE DM Blood Disorders: NONE Cancer(s): basal cell carcinoma 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 Home Services at Home: None Smoking Status: Former Smoker ETOH Use: denies use Illicit Drug Use: denies illicit drug use Functional Ability ADLs Independent: dressing, eating, toileting, bathing. Ambulation: cane IADLs Independent: shopping, housework, finances, food prep, telephone, transportation , medication admin. Exam & Diagnostic Data Vital Signs and I&O Vital Signs Date Time Temp Pulse Resp B/P B/P Pulse O2 O2 Flow FiO2 Mean Ox Delivery Rate 09/14 2014 81 136/60 09/14 1537 99.3 82 18 144/60 94 Room Air 09/14 1337 97.0 80 18 138/89 97 Room Air Room Air 09/14 1238 97.0 79 18 143/93 97 Room Air Room Air 09/14 0943 70 18 111/53 95 Room Air 09/14 0845 70 111/53 09/14 0830 70 18 111/53 95 Room Air 09/14 0508 96.7 70 20 126/55 93 BIPAP 09/13 2335 60 106/51 09/13 2332 97.6 66 20 106/51 92 CPAP 09/13 2230 69 20 93 CPAP Room Air 09/13 2103 97.3 62 18 140/68 96 09/13 2030 94 CPAP Room Air Intake & Output 09/14 1600 09/14 0800 09/14 0000 Intake Total Output Total Balance Patient 205 lb Weight Weight Bed scale Measurement Method Physical Exam: Alert and oriented Language Functions fund of knowledge attention span concentration recall intact Heart sounds normal no carotid bruits distal pulses intact Extraocular movements full pupils equal reactive fundi benign visual griffin intact no facial weakness or facial sensory loss palate tongue and shoulders intact hearing grossly intact Normal tone and strength upper and lower extremities No sensory loss to light touch Deep tendon reflexes hypoactive throughout No incoordination upper extremities Patient has been walking to bathroom with no assistance Last 48 Hours of Lab Results: Laboratory Tests 09/14 09/14 09/13 0518 0053 2038 Chemistry Sodium (137 - 145 mmol/L) 140 140 Potassium (3.5 - 5.1 mmol/L) 4.3 4.3 Chloride (98 - 107 mmol/L) 108 H 112 H Carbon Dioxide (22 - 30 mmol/L) 22 16 L Anion Gap (5 - 16) 10 11 BUN (7 - 17 mg/dL) 50 H 53 H Creatinine (0.5 - 1.0 mg/dL) 2.1 H 2.3 H Estimated GFR (>60 ml/min) 24 L 21 L BUN/Creatinine Ratio (7 - 25 %) 23.8 23.0 Calcium (8.4 - 10.2 mg/dL) 8.8 Phosphorus (2.5 - 4.5 mg/dL) 4.8 H Magnesium (1.6 - 2.3 mg/dL) 2.1 Total Bilirubin (0.2 - 1.3 mg/dL) 0.3 Direct Bilirubin (< 0.4 mg/dL) 0.3 AST (14 - 36 U/L) 23 ALT (9 - 52 U/L) 33 Alkaline Phosphatase (<127 U/L) 55 Total Protein (6.3 - 8.2 g/dL) 5.6 L Albumin (3.5 - 5.0 g/dL) 3.1 L Prolactin Cancelled Hematology CBC w Diff MAN DIFF ORDERED WBC (4.8 - 10.8 /CUMM) 5.3 RBC (4.20 - 5.40 /CUMM) 3.56 L Hgb (12.0 - 16.0 G/DL) 10.4 L Hct (37 - 47 %) 31.3 L MCV (81.0 - 99.0 FL) 87.8 MCH (27.0 - 31.0 PG) 29.3 MCHC (33.0 - 37.0 G/DL) 33.4 RDW (11.5 - 14.5 %) 14.3 Plt Count (130 - 400 /CUMM) 160 MPV (7.4 - 10.4 FL) 9.2 Gran % (42.2 - 75.2 %) 72.0 Lymphocytes % (20.5 - 51.1 %) 16.5 L Monocytes % (1.7 - 9.3 %) 6.6 Eosinophils % (0 - 5 %) 4.8 Basophils % (0.0 - 2.0 %) 0.1 Absolute Granulocytes (1.4 - 6.5 /CUMM) 3.8 Absolute Lymphocytes (1.2 - 3.4 /CUMM) 0.9 L Absolute Monocytes (0.10 - 0.60 /CUMM) 0.3 Absolute Eosinophils (0.0 - 0.7 /CUMM) 0.3 Absolute Basophils (0.0 - 0.2 /CUMM) 0 Platelet Estimate (ADEQUATE) ADEQUATE Hypochromic-Microcytic 1+ Anisocytosis 109/13 1625 1343 Blood Gas pH (7.35 - 7.45 PH) 7.24 *L pCO2 (35 - 45 TORR) 44 pO2 (80 - 100 TORR) 82 HCO3 (21 - 28 MEQ/L) 18 L ABG O2 Sat (Measured) (>96.0 %) 93.0 L P-50 (Temp Corrected) N Carboxyhemoglobin (1.5 - 5.0 %) 1.2 L O2 Concentration % 2L Temperature (97.0 - 100.0 FARH) 97.7 O2 Delivery Method NC Chemistry Ammonia (9 - 30 umol/L) < 9 L Hematology CBC w Diff NO MAN DIFF REQ WBC (4.8 - 10.8 /CUMM) 7.0 RBC (4.20 - 5.40 /CUMM) 3.93 L Hgb (12.0 - 16.0 G/DL) 11.6 L Hct (37 - 47 %) 34.5 L MCV (81.0 - 99.0 FL) 87.7 MCH (27.0 - 31.0 PG) 29.6 MCHC (33.0 - 37.0 G/DL) 33.8 RDW (11.5 - 14.5 %) 13.9 Plt Count (130 - 400 /CUMM) 180 MPV (7.4 - 10.4 FL) 9.4 Gran % (42.2 - 75.2 %) 73.5 Lymphocytes % (20.5 - 51.1 %) 15.4 L Monocytes % (1.7 - 9.3 %) 7.3 Eosinophils % (0 - 5 %) 3.2 Basophils % (0.0 - 2.0 %) 0.6 Absolute Granulocytes (1.4 - 6.5 /CUMM) 5.1 Absolute Lymphocytes (1.2 - 3.4 /CUMM) 1.1 L Absolute Monocytes (0.10 - 0.60 /CUMM) 0.5 Absolute Eosinophils (0.0 - 0.7 /CUMM) 0.2 Absolute Basophils (0.0 - 0.2 /CUMM) 0 Miscellaneous Phlebotomy Draw Site RIGHT RADIAL 09/13 09/13 1315 1259 Chemistry Sodium (137 - 145 mmol/L) 137 Potassium (3.5 - 5.1 mmol/L) 4.7 Chloride (98 - 107 mmol/L) 102 Carbon Dioxide (22 - 30 mmol/L) 20 L Anion Gap (5 - 16) 14 BUN (7 - 17 mg/dL) 64 H Creatinine (0.5 - 1.0 mg/dL) 3.7 H Estimated GFR (>60 ml/min) 12 L BUN/Creatinine Ratio (7 - 25 %) 17.3 Glucose (65 - 99 mg/dL) 93 Lactic Acid (0.7 - 2.1 mmol/L) 0.6 L Calcium (8.4 - 10.2 mg/dL) 9.0 Total Bilirubin (0.2 - 1.3 mg/dL) 0.3 AST (14 - 36 U/L) 22 ALT (9 - 52 U/L) 31 Alkaline Phosphatase (<127 U/L) 65 Troponin I (< 0.11 ng/ml) < 0.01 Total Protein (6.3 - 8.2 g/dL) 6.5 Albumin (3.5 - 5.0 g/dL) 3.9 Globulin (1.9 - 4.2 gm/dL) 2.6 Albumin/Globulin Ratio (1.1 - 2.2 %) 1.5 TSH (0.270 - 4.200 uIU/mL) 0.759 Prolactin (3.0 - 18.6 ng/mL) 23.9 H Coagulation PT (9.4 - 12.5 SEC) 11.3 INR (0.90 - 1.19) 1.08 APTT (25 - 37 SEC) 23 L Toxicology Serum Alcohol (<10 MG/DL) < 10.0 Urines Urinalysis LIGHT H Urine Color (YEL,AMB,STR) YEL Urine Clarity (CLEAR) CLEAR Urine pH (5.0 - 8.0) 6.0 Ur Specific [place] (1.001 - 1.035) 1.020 Urine Protein (NEG,<30 MG/DL) NEG Urine Ketones (NEG) NEG Urine Nitrite (NEG) NEG Urine Bilirubin (NEG) NEG Urine Urobilinogen (0.1 - 1.0 EU/dl) 0.2 Ur Leukocyte Esterase (NEG) TRACE H Ur Microscopic SEDIMENT EXAMINED Urine WBC (0 - 2 /HPF) 1-3 H Ur Epithelial Cells (NONE,FEW) MOD H Urine Bacteria (NEG/NONE) FEW H Hyaline Casts (0/LPF) 1-3 H Urine Mucus (FEW,NONE) FEW Urine Hemoglobin (NEG) NEG Urine Glucose (N MG/DL) NEG 09/13 09/13 1259 1254 Chemistry Ammonia Cancelled Toxicology Urine Opiates Screen (>2000 NG/ML) > 4000.00 H Methadone Screen (>300 NG/ML) 53 Barbiturate Screen (>200 NG/ML) < 60 Ur Phencyclidine Scrn (>25 NG/ML) < 6.00 Amphetamines Screen (>1000 NG/ML) < 100 U Benzodiazepines Scrn (>200 NG/ML) < 85 Urine Cocaine Screen (>300 NG/ML) < 50 Urine Cannabis Screen (>50 NG/ML) 72.40 H Serum Alcohol Cancelled Urines Urine Osmolality (300 - 1000 MOSM/KG) 302 Ur Random Creatinine (mg/dL) 134.7 Ur Random Sodium (30 - 90 mmol/L) 37 Ur Random Potassium (mmol/L) 25.9 Fraction Sodium Excret (<1% %) 0.7 Imaging/Other Studies: IMPRESSION: 1. There are no acute bleeds or infarcts. 2. There are mild chronic microvascular ischemic changes. Assessment/Plan Assessment: Acute confusional state Etiology uncertain Recommendations: drug tox screen detected opiates greater than 4000 H, serum ammonia was normal Possibility exists that the confusional state was drug/medicine related No clear evidence of pulmonary embolus Electroencephalogram to assess for unwitnessed seizure Consult Acknowledgment - Thank you for your consult request.
--- NOTE | 2017-09-14 20:58 | ELECTROENCEPHALOGRAM REPORT ---
Electroencephalogram Report Electroencephalogram Results Date of service: 09/14/17 Attending MD: Loyda MYLES,Noah Mann EEG Number: [id number] Test Utilizes: 10-20 system, 21 lead 18 channel digital recording Pertinent Hx/Physical/Neuro Findings/Clin Diagnosis: confusional spell Inpatient Medications: Current Medications Sig/Vanesa Start time Last Medication Dose Route Stop Time Status Admin Amlodipine Besylate 10 MG DAILY 09/14 1000 AC 09/14 PO 0845 Aspirin 81 MG DAILY 09/14 1000 DC 09/14 PO 0845 Clopidogrel Bisulfate 75 MG DAILY 09/14 1000 AC 09/14 PO 0845 Dextrose/Sodium 1,000 ML Q13H 09/13 2145 AC 09/14 Chloride IV 1237 Docusate Sodium 100 MG DAILY NEEDED PRN 09/14 1445 AC PO Gabapentin 100 MG Q8 09/14 0600 DC 09/14 PO 0845 Heparin Sodium 0 .STK-MED ONE 09/14 0618 DC (Porcine) .ROUTE Heparin Sodium 5,000 UNIT Q8 09/14 0600 AC 09/14 (Porcine) SC 0845 Levothyroxine Sodium 0.1 MG DAILY 09/14 1000 DC PO Levothyroxine Sodium 0.1 MG DAILY AC 09/14 0700 AC 09/14 PO 0845 Melatonin 5 MG AT BEDTIME 09/14 2200 AC 09/14 PO 2020 Metoprolol Tartrate 0 .STK-MED ONE 09/13 2334 DC PO Metoprolol Tartrate 50 MG BID 09/13 2200 AC 09/14 PO 2015 Omeprazole 40 MG DAILY AC 09/14 0700 AC 09/14 PO 0845 Oxycodone HCl 10 MG Q6 PRN 09/14 1345 AC PO Polyethylene Glycol 17 GM ONCE ONE 09/14 1445 DC 09/14 PO 09/14 1446 1754 Senna 187 MG AT BEDTIME 09/14 2200 AC PO Sodium Chloride 1,000 ML ONCE ONE 09/13 1430 DC 09/13 IV 09/13 2109 1716 Interpretation: EEG wake and drowsy states During wakefulness back and is medium voltage 8-9 cps activity maximal posteriorly In drowsiness 2-3 cps activity is seen frontally No focal or epileptiform activity seen throughout the recording Photic stimulation induced no abnormalities Impression: Normal EEG in wake and drowsy states
[2017-09-14 22:56] VITALS: BP 122/82
[2017-09-15 06:54] VITALS: BP 150/50
--- NOTE | 2017-09-15 07:30 | PN- Housestaff ---
Subjective Follow-up For: AMS ? seizures Opiate abuse Tele-Events Since Last Visit: NS HR 72-83 Subjective: Patient reports she feels "sick to my stomach". No events overnight. Review of Systems Constitutional: Reports: see HPI. Objective Last 24 Hrs of Vital Signs/I&O Vital Signs Date Time Temp Pulse Resp B/P B/P Pulse O2 O2 Flow FiO2 Mean Ox Delivery Rate 09/15 1018 75 150/50 09/15 0654 98.7 75 20 150/50 92 Room Air 09/14 2256 98.2 70 20 122/82 94 09/14 2047 Room Air 09/14 2014 81 136/60 09/14 1537 99.3 82 18 144/60 94 Room Air 09/14 1337 97.0 80 18 138/89 97 Room Air Room Air Intake & Output 09/15 1600 09/15 0800 09/15 0000 Intake Total 200 600 Output Total Balance 200 600 Intake, IV 400 Intake, Oral 200 200 Physical Exam General Appearance: Alert, Oriented X3, Cooperative Cardiovascular: Regular Rate, Normal S1, Normal S2 Lungs: Clear to Auscultation, Normal Air Movement Abdomen: Normal Bowel Sounds, Soft, No Tenderness Extremities: No Edema Current Medications: Current Medications Sig/Vanesa Start time Last Medication Dose Route Stop Time Status Admin Amlodipine Besylate 10 MG DAILY 09/14 1000 AC 09/15 PO 1018 Aspirin 81 MG DAILY 09/14 1000 DC 09/14 PO 0845 Clopidogrel Bisulfate 75 MG DAILY 09/14 1000 DC 09/14 PO 0845 Dextrose/Sodium 1,000 ML Q13H 09/13 2145 AC 09/14 Chloride IV 1237 Docusate Sodium 100 MG DAILY NEEDED PRN 09/14 1445 AC PO Gabapentin 100 MG Q8 09/14 0600 DC 09/14 PO 0845 Heparin Sodium 5,000 UNIT Q8 09/14 0600 AC 09/14 (Porcine) SC 0845 Levothyroxine Sodium 0.1 MG DAILY AC 09/14 0700 AC 09/15 PO 0506 Melatonin 10 MG DAILY 09/15 2199 AC PO Melatonin 10 MG DAILY 09/15 1000 DC PO Melatonin 10 MG STAT STA 09/15 0715 DC PO 09/15 0716 Melatonin 5 MG AT BEDTIME 09/14 2200 AC 09/14 PO 2020 Metoprolol Tartrate 50 MG BID 09/13 2200 AC 09/15 PO 1018 Morphine Sulfate 15 MG BID 09/15 1000 AC 09/15 PO 1024 Omeprazole 40 MG DAILY AC 09/14 0700 AC 09/15 PO 0506 Ondansetron HCl 4 MG ONCE ONE 09/15 0915 DC 09/15 PO 09/15 0916 0916 Oxycodone HCl 10 MG Q6 PRN 09/14 1345 AC 09/15 PO 1021 Polyethylene Glycol 17 GM ONCE ONE 09/14 1445 DC 09/14 PO 09/14 1446 1754 Senna 187 MG AT BEDTIME 09/14 2200 AC PO Last 24 Hrs of Lab/Beau Results Last 24 Hrs of Labs/Mics: Laboratory Tests 09/15/17 0622: Anion Gap 12, Estimated GFR > 60, BUN/Creatinine Ratio 27.8 H Assessment/Plan Assessment: Ms. Pandya is a 62 year old female with past medical history of HTN, HLD, hypothyroidism, chronic back pain, CAD with myocardial infarction/arrest s/p coronary stents placement twelve years ago who was recently observed at [facility] for an acute visual change suspiscious for CVA, diagnosed with retinal artery occlusion BIBA for AMS and jerky movements AMS and Metabolic acidosis most likely 2/2 opiates abuse vs ? seizure Patient has a history of chronic back pain and family reports she has been using chronic opiate medications for > 10 years. U tox positive for >4000 opiates and cannabis. Patient's family reports patient intermittently has jerky movements while conscious. EEG r/o seizure activity. * Neurology recommendations appreciated SERG most likely 2/2 dehydration, ACEi - resolved * Avoid nephrotoxins, no nsaids, hold acei * discontinue IVF History of chronic back pain * Continue Oxycodone with goal to taper off * Start MS fields * Guaiac all stools Hx of CAD * Hold ASA and plavix until renal function improves Diet: Heart healthy DVT ppx-heparin 5000 units subcutaneous Q8H Code: Full Problem List: 1. Obesity 2. Back pain 3. Opiate abuse, continuous Pain Ratin Pain Location: Back Pain Goal: Remain pain free Pain Plan: MS Fields Tomorrow's Labs & Rationales: CBC for plt count, hgb BEP for renal function
--- NOTE | 2017-09-15 13:15 | PN- Pulmonary ---
Subjective HPI/Critical Care Issues: In pain has abd discomfort had diarrhea last night No blood in the stool Objective Current Medications: Current Medications Sig/Vanesa Start time Last Medication Dose Route Stop Time Status Admin Amlodipine Besylate 10 MG DAILY 09/14 1000 AC 09/15 PO 1018 Aspirin 81 MG DAILY 09/14 1000 DC 09/14 PO 0845 Clopidogrel Bisulfate 75 MG DAILY 09/14 1000 DC 09/14 PO 0845 Dextrose/Sodium 1,000 ML Q13H 09/13 2145 AC 09/14 Chloride IV 1237 Docusate Sodium 100 MG DAILY NEEDED PRN 09/14 1445 AC PO Gabapentin 100 MG Q8 09/14 0600 DC 09/14 PO 0845 Heparin Sodium 5,000 UNIT Q8 09/14 0600 AC 09/14 (Porcine) SC 0845 Levothyroxine Sodium 0.1 MG DAILY AC 09/14 0700 AC 09/15 PO 0506 Melatonin 10 MG DAILY 09/15 2200 AC PO Melatonin 10 MG DAILY 09/15 1000 DC PO Melatonin 10 MG STAT STA 09/15 0715 DC PO 09/15 0716 Melatonin 5 MG AT BEDTIME 09/14 2200 AC 09/14 PO 2020 Metoprolol Tartrate 50 MG BID 09/13 2200 AC 09/15 PO 1018 Morphine Sulfate 15 MG BID 09/15 1000 AC 09/15 PO 1024 Omeprazole 40 MG DAILY AC 09/14 0700 AC 09/15 PO 0506 Ondansetron HCl 4 MG ONCE ONE 09/15 0915 DC 09/15 PO 09/15 0916 0916 Oxycodone HCl 10 MG Q6 PRN 09/14 1345 AC 09/15 PO 1021 Polyethylene Glycol 17 GM ONCE ONE 09/14 1445 DC 09/14 PO 09/14 1446 1754 Senna 187 MG AT BEDTIME 09/14 2200 AC PO Vital Signs & I&O Last 24 Hrs of Vitals and I&O: Laboratory Tests 09/15 09/14 09/14 0622 0518 0053 Chemistry Sodium (137 - 145 mmol/L) 141 140 140 Potassium (3.5 - 5.1 mmol/L) 4.3 4.3 4.3 Chloride (98 - 107 mmol/L) 107 108 H 112 H Carbon Dioxide (22 - 30 mmol/L) 22 22 16 L Anion Gap (5 - 16) 12 10 11 BUN (7 - 17 mg/dL) 25 H 50 H 53 H Creatinine (0.5 - 1.0 mg/dL) 0.9 2.1 H 2.3 H Estimated GFR (>60 ml/min) > 60 24 L 21 L BUN/Creatinine Ratio (7 - 25 %) 27.8 H 23.8 23.0 Calcium (8.4 - 10.2 mg/dL) 8.8 Phosphorus (2.5 - 4.5 mg/dL) 4.8 H Magnesium (1.6 - 2.3 mg/dL) 2.1 Total Bilirubin (0.2 - 1.3 mg/dL) 0.3 Direct Bilirubin (< 0.4 mg/dL) 0.3 AST (14 - 36 U/L) 23 ALT (9 - 52 U/L) 33 Alkaline Phosphatase (<127 U/L) 55 Total Protein (6.3 - 8.2 g/dL) 5.6 L Albumin (3.5 - 5.0 g/dL) 3.1 L Hematology CBC w Diff MAN DIFF ORDERED WBC (4.8 - 10.8 /CUMM) 5.3 RBC (4.20 - 5.40 /CUMM) 3.56 L Hgb (12.0 - 16.0 G/DL) 10.4 L Hct (37 - 47 %) 31.3 L MCV (81.0 - 99.0 FL) 87.8 MCH (27.0 - 31.0 PG) 29.3 MCHC (33.0 - 37.0 G/DL) 33.4 RDW (11.5 - 14.5 %) 14.3 Plt Count (130 - 400 /CUMM) 160 MPV (7.4 - 10.4 FL) 9.2 Gran % (42.2 - 75.2 %) 72.0 Lymphocytes % (20.5 - 51.1 %) 16.5 L Monocytes % (1.7 - 9.3 %) 6.6 Eosinophils % (0 - 5 %) 4.8 Basophils % (0.0 - 2.0 %) 0.1 Absolute Granulocytes (1.4 - 6.5 /CUMM) 3.8 Absolute Lymphocytes (1.2 - 3.4 /CUMM) 0.9 L Absolute Monocytes (0.10 - 0.60 /CUMM) 0.3 Absolute Eosinophils (0.0 - 0.7 /CUMM) 0.3 Absolute Basophils (0.0 - 0.2 /CUMM) 0 Platelet Estimate (ADEQUATE) ADEQUATE Hypochromic-Microcytic 1+ Anisocytosis 1+ 09/13 1625 Blood Gas pH (7.35 - 7.45 PH) 7.24 *L pCO2 (35 - 45 TORR) 44 pO2 (80 - 100 TORR) 82 HCO3 (21 - 28 MEQ/L) 18 L ABG O2 Sat (Measured) (>96.0 %) 93.0 L P-50 (Temp Corrected) N Carboxyhemoglobin (1.5 - 5.0 %) 1.2 L O2 Concentration % 2L Temperature (97.0 - 100.0 FARH) 97.7 O2 Delivery Method NC Chemistry Prolactin Cancelled Miscellaneous Phlebotomy Draw Site RIGHT RADIAL 09/13 09/13 1343 1315 Chemistry Sodium (137 - 145 mmol/L) 137 Potassium (3.5 - 5.1 mmol/L) 4.7 Chloride (98 - 107 mmol/L) 102 Carbon Dioxide (22 - 30 mmol/L) 20 L Anion Gap (5 - 16) 14 BUN (7 - 17 mg/dL) 64 H Creatinine (0.5 - 1.0 mg/dL) 3.7 H Estimated GFR (>60 ml/min) 12 L BUN/Creatinine Ratio (7 - 25 %) 17.3 Glucose (65 - 99 mg/dL) 93 Lactic Acid (0.7 - 2.1 mmol/L) 0.6 L Calcium (8.4 - 10.2 mg/dL) 9.0 Total Bilirubin (0.2 - 1.3 mg/dL) 0.3 AST (14 - 36 U/L) 22 ALT (9 - 52 U/L) 31 Alkaline Phosphatase (<127 U/L) 65 Ammonia (9 - 30 umol/L) < 9 L Troponin I (< 0.11 ng/ml) < 0.01 Total Protein (6.3 - 8.2 g/dL) 6.5 Albumin (3.5 - 5.0 g/dL) 3.9 Globulin (1.9 - 4.2 gm/dL) 2.6 Albumin/Globulin Ratio (1.1 - 2.2 %) 1.5 TSH (0.270 - 4.200 uIU/mL) 0.759 Prolactin (3.0 - 18.6 ng/mL) 23.9 H Coagulation PT (9.4 - 12.5 SEC) 11.3 INR (0.90 - 1.19) 1.08 APTT (25 - 37 SEC) 23 L Hematology CBC w Diff NO MAN DIFF REQ WBC (4.8 - 10.8 /CUMM) 7.0 RBC (4.20 - 5.40 /CUMM) 3.93 L Hgb (12.0 - 16.0 G/DL) 11.6 L Hct (37 - 47 %) 34.5 L MCV (81.0 - 99.0 FL) 87.7 MCH (27.0 - 31.0 PG) 29.6 MCHC (33.0 - 37.0 G/DL) 33.8 RDW (11.5 - 14.5 %) 13.9 Plt Count (130 - 400 /CUMM) 180 MPV (7.4 - 10.4 FL) 9.4 Gran % (42.2 - 75.2 %) 73.5 Lymphocytes % (20.5 - 51.1 %) 15.4 L Monocytes % (1.7 - 9.3 %) 7.3 Eosinophils % (0 - 5 %) 3.2 Basophils % (0.0 - 2.0 %) 0.6 Absolute Granulocytes (1.4 - 6.5 /CUMM) 5.1 Absolute Lymphocytes (1.2 - 3.4 /CUMM) 1.1 L Absolute Monocytes (0.10 - 0.60 /CUMM) 0.5 Absolute Eosinophils (0.0 - 0.7 /CUMM) 0.2 Absolute Basophils (0.0 - 0.2 /CUMM) 0 Toxicology Serum Alcohol (<10 MG/DL) < 10.0 Microbiology Date/Time Procedure - Status Source Growth 09/13 1254 Urine Culture - COMP URINE ROUT Vital Signs Date Time Temp Pulse Resp B/P B/P Pulse O2 O2 Flow FiO2 Mean Ox Delivery Rate 09/15 1018 75 150/50 09/15 0654 98.7 75 20 150/50 92 Room Air 09/14 2256 98.2 70 20 122/82 94 09/14 2047 Room Air 09/14 2014 81 136/60 09/14 1537 99.3 82 18 144/60 94 Room Air 09/14 1337 97.0 80 18 138/89 97 Room Air Room Air Intake & Output 09/15 1600 09/15 0800 09/15 0000 Intake Total 200 600 Output Total Balance 200 600 Intake, IV 400 Intake, Oral 200 200 Impression/Plan Impression/Plan Impression/Plan: EEG normal General Appearance Alert, Oriented X3, Cooperative, No Acute Distress, obese Cardiovascular Regular Rate, Normal S1, Normal S2, No Murmurs, no CVA tenderness Lungs diminished air entry but clear to auscultation, no wheezes or rhonchi Abdomen Normal Bowel Sounds, Soft, No Tenderness, No Masses, obese, large ventral hernia Extremities No Clubbing, No Cyanosis, Normal Pulses, trace bilateral pedal edema IMPRESSION This is a 62-year-old lady with history of ischemic heart disease with previous stent with no active ischemic heart, hypertension, hyperlipidemia, morbid obesity, hypothyroidism on appropriate supplementation, previous history of multiple lumbar surgeries with fusion with chronic pain syndrome in the past with severe backache, previous history of IN with V. fib arrest, recent admission to this hospital and workup for a number acute stroke with retinal artery branch occlusion consistent with an embolic stroke with no evidence of atrial fibrillation, complete workup negative for carotid disease or any intraventricular clot in the heart, no recent active coronary issues, now admitted with * Resolving New onset confusion, poor by mouth intake in the past 2 days, acute renal failure with both combined metabolic and respiratory acidosis related to renal failure and narcotic use at home * Rsolved Acute renal failure now resolving prob related to NSAID and dehydration due to poor po intake compounded by arb use * History of shaking versus seizure activity this needs to be ruled out / Prob related to meds EEG normal * Chronic pain syndrome on significant amount of narcotics, patient has also been on medical marijuana * No recent diarrhea, nor history of dehydration. The only new medication she has been on his Plavix/ PTdid take exedrine migrane * Recent Acute stroke with retinal artery branch occlusion consistant with an embolic stroke, now no other area of stroke noted, with negative MRI, negative carotid ultrasound, no evidence of atrial fibrillation * Previous History of significant smoking with all the risks for atheroembolic disease * IHD with previous stents with previous vifib arrest, now stable and recent stress test neg for active ischemia * CHronic low back pain with severe lumbar disc disease with multiple surg in the past on high dose narcotics and medical marijuana * Hypothyroidism/hypertension/hyperlipidemia appears to be stable * Ischemic heart disease appears to be stable * SIg Lizeth on cpap and compliant * Morbid obesity * Small airway disease * OSteopenia with vit d def with previous work up for hypercalcemia neg with normal pth * Sig drop in crit (some of it due to IVF but pt was on nsaid and was on dapt) RECOMMENDATION Increase po intake Dc ivf Start MS contin 15 bid and cont oxycodone Hold asa and plavix today till crit is stable Check all stool for heme Hold stool softners DC flexaril DC gabapentin Resume lipid lowering rx Cont betablocker and amlodapine resume losartan at 50 mg Discussed with the family
--- NOTE | 2017-09-15 14:08 | PN- Cardiology ---
Subjective Subjective: Clinically more alert and responsive today. NO new cardiac issues. Worsening anemia noted. Objective Vital Signs and I&Os Vital Signs Date Time Temp Pulse Resp B/P B/P Pulse O2 O2 Flow FiO2 Mean Ox Delivery Rate 09/15 1018 75 150/50 09/15 0654 98.7 75 20 150/50 92 Room Air 09/14 2256 98.2 70 20 122/82 94 09/14 2047 Room Air 09/14 2014 81 136/60 09/14 1537 99.3 82 18 144/60 94 Room Air Intake & Output 09/15 1600 09/15 0800 09/15 0000 09/14 1600 09/14 0800 09/14 0000 Intake Total 200 600 Output Total Balance 200 600 Intake, IV 400 Intake, Oral 200 200 Patient 205 lb Weight Weight Bed scale Measurement Method Physical Exam: General Appearance Alert, Oriented X3, Cooperative, No Acute Distress, obese Cardiovascular Regular Rate, Normal S1, Normal S2, 1/6 systolic murmur Lungs diminished air entry but clear to auscultation, no wheezes or rhonchi Abdomen Normal Bowel Sounds, Soft, No Tenderness, No Masses, obese, large ventral hernia Extremities No Clubbing, No Cyanosis, Normal Pulses, trace bilateral pedal edema Current Medications: Current Medications Sig/Vanesa Start time Last Medication Dose Route Stop Time Status Admin Amlodipine Besylate 10 MG DAILY 09/14 1000 AC 09/15 PO 1018 Clopidogrel Bisulfate 75 MG DAILY 09/14 1000 DC 09/14 PO 0845 Dextrose/Sodium 1,000 ML Q13H 09/13 2145 DC 09/14 Chloride IV 1237 Docusate Sodium 100 MG DAILY NEEDED PRN 09/14 1445 DC PO Heparin Sodium 5,000 UNIT Q8 09/14 0600 AC 09/14 (Porcine) SC 0845 Levothyroxine Sodium 0.1 MG DAILY AC 09/14 0700 AC 09/15 PO 0506 Losartan Potassium 100 MG DAILY 09/15 1336 AC PO Melatonin 10 MG DAILY 09/15 2200 AC PO Melatonin 10 MG DAILY 09/15 1000 DC PO Melatonin 10 MG STAT STA 09/15 0715 DC PO 09/15 0716 Melatonin 5 MG AT BEDTIME 09/14 2200 AC 09/14 PO 2020 Metoprolol Tartrate 50 MG BID 09/13 2200 AC 09/15 PO 1018 Morphine Sulfate 15 MG BID 09/15 1000 AC 09/15 PO 1024 Omeprazole 40 MG DAILY AC 09/14 0700 AC 09/15 PO 0506 Ondansetron HCl 4 MG ONCE ONE 09/15 0915 DC 09/15 PO 09/15 0916 0916 Oxycodone HCl 10 MG Q6 PRN 09/14 1345 AC 09/15 PO 1021 Polyethylene Glycol 17 GM ONCE ONE 09/14 1445 DC 09/14 PO 09/14 1446 1754 Senna 187 MG AT BEDTIME 09/14 2200 AC PO Results Last 48 Hrs of Labs/Mics: Laboratory Tests 09/15/17 1200: Sodium Cancelled, Potassium Cancelled, Chloride Cancelled, Carbon Dioxide Cancelled, Anion Gap Cancelled, BUN Cancelled, Creatinine Cancelled, BUN/ Creatinine Ratio Cancelled 09/15/17 0622: Anion Gap 12, Estimated GFR > 60, BUN/Creatinine Ratio 27.8 H 09/14/17 0518: Anion Gap 10, Estimated GFR 24 L, BUN/Creatinine Ratio 23.8, Calcium 8.8, Phosphorus 4.8 H, Magnesium 2.1, Total Bilirubin 0.3, Direct Bilirubin 0.3, AST 23, ALT 33, Alkaline Phosphatase 55, Total Protein 5.6 L, Albumin 3.1 L, CBC w Diff MAN DIFF ORDERED, RBC 3.56 L, MCV 87.8, MCH 29.3, MCHC 33.4, RDW 14.3, MPV 9.2, Gran % 72.0, Lymphocytes % 16.5 L, Monocytes % 6.6, Eosinophils % 4.8, Basophils % 0.1, Absolute Granulocytes 3.8, Absolute Lymphocytes 0.9 L, Absolute Monocytes 0.3, Absolute Eosinophils 0.3, Absolute Basophils 0, Platelet Estimate ADEQUATE, Hypochromic-Microcytic 1+, Anisocytosis 1+ 09/14/17 0053: Anion Gap 11, Estimated GFR 21 L, BUN/Creatinine Ratio 23.0 09/13/172038: Prolactin Cancelled 09/13/17 1625: pH 7.24 *L, pCO2 44, pO2 82, HCO3 18 L, ABG O2 Sat (Measured) 93.0 L, P-50 ( Temp Corrected) N, Carboxyhemoglobin 1.2 L, O2 Concentration % 2L, Temperature 97.7, O2 Delivery Method NC, Phlebotomy Draw Site RIGHT RADIAL Assessment/Plan Assessment/Plan Assessment: 1. New onset mental status changes/confusion, possibly related to medications 2. History of coronary artery disease, status post multiple stents and distant cardiac arrest 3. Acute renal failure-improving 4. history of recent visual changes with evidence of right retinal artery occlusion, consistent with retinal artery embolus 5.hypothyroidism 6. Chronic pain syndrome 7. Sleep apnea on CPAP Recommendations: -While in the hospital, I would monitor for now on telemetry to rule out any evidence of paroxysmal atrial arrhythmias -No need to repeat echocardiogram -The patient will eventually need an event monitor and possibly a NISHANT to better guide treatment of her embolic retinal artery issues. -Of note, the patient had a recent pharmacologic nuclear stress test in preparation for possible bariatric surgery which was normal. -Decision about holding antiplatelets as per Dr. Scales; if necessary for worsening anemia. Continue telemetry? Yes
[2017-09-15 14:36] VITALS: BP 137/50
[2017-09-15 15:02] LABS: ABSOLUTE BASOPHIL COUNT 0 /CUMM (0.0-0.2); ABSOLUTE EOSINOPHIL COUNT 0 /CUMM (0.0-0.7); ABSOLUTE GRANULOCYTE CT 4.7 /CUMM (1.4-6.5); ABSOLUTE LYMPH COUNT 0.7 /CUMM (1.2-3.4); ABSOLUTE MONOCYTE COUNT 0.3 /CUMM (0.10-0.60); BASOPHIL % 0.2 % (0.0-2.0); EOSINOPHIL % 0.2 % (0-5); GRANULOCYTE % 82.6 % (42.2-75.2); HEMATOCRIT 34.3 % (37-47); MEAN CORPUSCULAR HGB 29.5 PG (27.0-31.0); MEAN CORPUSCULAR HGB CONC 33.6 G/DL (33.0-37.0); MEAN CORPUSCULAR VOLUME 87.6 FL (81.0-99.0); MEAN PLATELET VOLUME 9.4 FL (7.4-10.4); PLATELET COUNT 213 /CUMM (130-400); RBC DISTRIBUTION WIDTH 14.1 % (11.5-14.5); RED BLOOD CELL CT 3.92 /CUMM (4.20-5.40); WHITE BLOOD CELL COUNT 5.7 /CUMM (4.8-10.8)
[2017-09-15 21:00] VITALS: BP 158/66
[2017-09-16 06:00] VITALS: BP 170/78
[2017-09-16 08:14] LABS: ABSOLUTE BASOPHIL COUNT 0 /CUMM (0.0-0.2); ABSOLUTE EOSINOPHIL COUNT 0.1 /CUMM (0.0-0.7); ABSOLUTE GRANULOCYTE CT 4.1 /CUMM (1.4-6.5); ABSOLUTE MONOCYTE COUNT 0.4 /CUMM (0.10-0.60); BASOPHIL % 0.3 % (0.0-2.0); EOSINOPHIL % 2.2 % (0-5); GRANULOCYTE % 73.3 % (42.2-75.2); HEMATOCRIT 33.8 % (37-47); MEAN CORPUSCULAR HGB 29.7 PG (27.0-31.0); MEAN CORPUSCULAR VOLUME 87.5 FL (81.0-99.0); MEAN PLATELET VOLUME 9.4 FL (7.4-10.4); PLATELET COUNT 210 /CUMM (130-400); RBC DISTRIBUTION WIDTH 13.9 % (11.5-14.5); RED BLOOD CELL CT 3.86 /CUMM (4.20-5.40); WHITE BLOOD CELL COUNT 5.6 /CUMM (4.8-10.8)
--- NOTE | 2017-09-16 08:24 | PN- Housestaff ---
Subjective Follow-up For: AMS ? seizures Metabolic acidosis 2/2 Opiate abuse Tele-Events Since Last Visit: NSR HR 64-80 Review of Systems Constitutional: Reports: see HPI. Objective Last 24 Hrs of Vital Signs/I&O Vital Signs Date Time Temp Pulse Resp B/P B/P Pulse O2 O2 Flow FiO2 Mean Ox Delivery Rate 09/16 1506 99.2 6 20 142/90 97 09/16 0750 86 170/78 09/16 0749 86 170/78 09/16 0749 86 170/78 09/16 0600 98.5 86 20 170/78 96 09/15 2100 98.1 81 20 158/66 94 Room Air 09/15 2044 81 158/66 Intake & Output 09/16 1600 09/16 0800 09/16 0000 Intake Total 360 480 Output Total Balance 360 480 Intake, IV 10 Intake, Oral 350 480 Physical Exam General Appearance: Alert, Oriented X3, Cooperative, No Acute Distress Cardiovascular: Regular Rate, Normal S1, Normal S2 Lungs: Clear to Auscultation, Normal Air Movement Abdomen: Normal Bowel Sounds, Soft, No Tenderness Extremities: No Edema Current Medications: Current Medications Sig/Vanesa Start time Last Medication Dose Route Stop Time Status Admin Amlodipine Besylate 10 MG DAILY 09/14 1000 DCD 09/16 PO 0749 Heparin Sodium 5,000 UNIT Q8 09/14 0600 DCD 09/14 (Porcine) SC 0845 Levothyroxine Sodium 0.1 MG DAILY AC 09/14 0700 DCD 09/16 PO 0537 Losartan Potassium 50 MG DAILY 09/16 1000 DCD 09/16 PO 0750 Melatonin 10 MG DAILY 09/150 DC 09/15 PO 2044 Melatonin 5 MG AT BEDTIME 09/140 DCD 09/14 PO 2020 Metoprolol Tartrate 50 MG BID 09/13 2200 DCD 09/16 PO 0749 Morphine Sulfate 15 MG BID 09/15 1000 DCD 09/16 PO 0750 Omeprazole 40 MG DAILY AC 09/14 0700 DCD 09/16 PO 0537 Oxycodone HCl 10 MG Q6 PRN 09/14 1345 DCD 09/16 PO 1255 Senna 187 MG AT BEDTIME 09/14 2200 DCD PO Last 24 Hrs of Lab/Beau Results Last 24 Hrs of Labs/Mics: Laboratory Tests 09/16/17 0640: Anion Gap 14, Estimated GFR > 60, BUN/Creatinine Ratio 21.3, CBC w Diff NO MAN DIFF REQ, RBC 3.86 L, MCV 87.5, MCH 29.7, MCHC 34.0, RDW 13.9, MPV 9.4, Gran % 73.3, Lymphocytes % 17.0 L, Monocytes % 7.2, Eosinophils % 2.2, Basophils % 0.3 , Absolute Granulocytes 4.1, Absolute Lymphocytes 1.0 L, Absolute Monocytes 0.4 , Absolute Eosinophils 0.1, Absolute Basophils 0 Assessment/Plan Assessment: Ms. Pandya is a 62 year old female with past medical history of HTN, HLD, hypothyroidism, chronic back pain, CAD with myocardial infarction/arrest s/p coronary stents placement twelve years ago who was recently observed at [facility] for an acute visual change suspiscious for CVA, diagnosed with retinal artery occlusion BIBA for AMS and jerky movements AMS and Metabolic acidosis most likely 2/2 opiates abuse vs ? seizure Patient has a history of chronic back pain and family reports she has been using chronic opiate medications for > 10 years. U tox positive for >4000 opiates and cannabis. Patient's family reports patient intermittently has jerky movements while conscious. EEG r/o seizure activity. * Neurology recommendations appreciated SERG most likely 2/2 dehydration, ACEi - resolved * Avoid nephrotoxins, no nsaids, hold acei * discontinue IVF History of chronic back pain * Continue Oxycodone with goal to taper off * Start MS contin * Guaiac all stools Hx of CAD * Hold ASA and plavix until renal function improves Diet: Heart healthy DVT ppx-heparin 5000 units subcutaneous Q8H Code: Full Problem List: 1. Obesity 2. Back pain 3. Opiate abuse, continuous Pain Ratin Pain Location: Back Pain Goal: Pain 4 or less Pain Plan: contin Oxycodone Tomorrow's Labs & Rationales: None
--- NOTE | 2017-09-16 13:46 | Patient Discharge Instructions ---
Discharge Instructions General Discharge Information You were seen/treated for: AMS Opiate induced metabolic acidosis You had these procedures: none Special Instructions: Follow up with your PCP within 1 week upon discharge Follow up with your Bike Mechanic upon discharge for NISHANT Diet Continue normal diet: Yes Activity Other activity limits: As tolerated Acute Coronary Syndrome Inclusion Criteria At DC or during hospital stay patient has or had the following: ACS DIAGNOSIS No Discharge Core Measures Meds if any: Prescribed or Continued at Discharge Meds if any: NOT Prescribed or Continued at Discharge Congestive Heart Failure Inclusion Criteria At DC or during hospital stay patient has or had the following: CHF DIAGNOSIS No Discharge Core Measures Meds if any: Prescribed or Continued at Discharge Meds if any: NOT Prescribed or Continued at Discharge Cerebrovascular accident Inclusion Criteria At DC or during hospital stay patient has or had the following: CVA/TIA Diagnosis No Discharge Core Measures Meds if any: Prescribed or Continued at Discharge Meds if any: NOT Prescribed or Continued at Discharge Venous thromboembolism Inclusion Criteria VTE Diagnosis No VTE Type NONE VTE Confirmed by (Test) NONE Discharge Core Measures - Per Current guidelines, there needs to be overlap - treatment for the first 5 days of Warfarin therapy. - If discharged on Warfarin prior to 5 days of - overlap therapy, the patient will need to be - assessed for post discharge needs including - *Post discharge parental anticoagulation - *Warfarin and/or parental anticoagulation education - *Follow up date to check INR post discharge At least 5 days overlap therapy as Inpatient No Meds if any: Prescribed or Continued at Discharge Note: Overlap Therapy is Warfarin and Anticoagulant Meds if any: NOT Prescribed or Continued at Discharge
[2017-09-16 15:06] VITALS: BP 142/90
--- NOTE | 2017-09-16 19:11 | Discharge Summary ---
Visit Information Visit Dates Admission Date: 09/13/17 Discharge Date: 09/16/17 Hospital Course Course Attending Physician: Noah Scales MD Primary Care Physician: Noah Scales MD Hospital Course: General Appearance Alert, Oriented X3, Cooperative, No Acute Distress, obese Cardiovascular Regular Rate, Normal S1, Normal S2, No Murmurs, no CVA tenderness Lungs diminished air entry but clear to auscultation, no wheezes or rhonchi Abdomen Normal Bowel Sounds, Soft, No Tenderness, No Masses, obese, large ventral hernia Extremities No Clubbing, No Cyanosis, Normal Pulses, trace bilateral pedal edema This is a 62-year-old lady with history of ischemic heart disease with previous stent with no active ischemic heart, hypertension, hyperlipidemia, morbid obesity, hypothyroidism on appropriate supplementation, previous history of multiple lumbar surgeries with fusion with chronic pain syndrome in the past with severe backache, previous history of DC with V. fib arrest, recent admission to this hospital and workup for a number acute stroke with retinal artery branch occlusion consistent with an embolic stroke with no evidence of atrial fibrillation, complete workup negative for carotid disease or any intraventricular clot in the heart, no recent active coronary issues, now admitted with * Resolved New onset confusion, poor by mouth intake in the past 2 days, acute renal failure with both combined metabolic and respiratory acidosis related to renal failure and narcotic use at home, consitant with metabolic encephalopathy * Resolved Acute renal failure now resolving prob related to NSAID and dehydration due to poor po intake compounded by arb use * History of shaking versus seizure activity this needs to be ruled out / Prob related to meds EEG normal * Chronic pain syndrome on significant amount of narcotics, patient has also been on medical marijuana * No recent diarrhea, nor history of dehydration. The only new medication she has been on his Plavix/ PTdid take exedrine migrane * Recent Acute stroke with retinal artery branch occlusion consistant with an embolic stroke, now no other area of stroke noted, with negative MRI, negative carotid ultrasound, no evidence of atrial fibrillation * Previous History of significant smoking with all the risks for atheroembolic disease * IHD with previous stents with previous vifib arrest, now stable and recent stress test neg for active ischemia * CHronic low back pain with severe lumbar disc disease with multiple surg in the past on high dose narcotics and medical marijuana * Hypothyroidism/hypertension/hyperlipidemia appears to be stable * Ischemic heart disease appears to be stable * SIg Lizeth on cpap and compliant * Morbid obesity * Small airway disease * OSteopenia with vit d def with previous work up for hypercalcemia neg with normal pth * Sig drop in crit (some of it due to IVF but pt was on nsaid and was on dapt) HOspital course Pt was rxd with ivf and she improved her narcotics was reduced by 30 percent HEr flexaril and her neurontin was held Her hemoglobin and hc was stable and stool was brown She was dcd home on stable condition and cmr done Allergies: Coded Allergies: Iodinated Contrast- Oral and IV Dye (IODINATED CONTRAST MEDIA - IV DYE) (HIVES ALL OVER BODY AND SOB PER PT 10/03/15) duloxetine (From CYMBALTA) (NAUSEA 09/07/17) potassium (Intermediate, THROUGH IV, PT REPORTS BURINING GOING THRU IV ) adhesive tape (Mild, REDNESS/IRRITATION AT SITE 10/03/15) Pertinent Lab Results: MRI head IMPRESSION: 1. There are no acute bleeds or infarcts. 2. There are mild chronic microvascular ischemic changes. DICTATED BY: Trenton Jose MD CT abd LUNG BASES: No acute infiltrate. Small thin-walled lung cyst right lung base at posterior costophrenic angle. No pleural effusion. LIVER, GALLBLADDER, AND BILIARY TREE: In segment 4 of left lobe of liver, there are several faint hypodense lesions measuring between 8 mm and 11 mm. There is a fourth hypodensity the inferior right lobe measuring 1.5 cm. These are nonenhancing on the CAT scan of 12/30/2014 consistent with hepatic cysts. No suspicious or new lesion. There is a small coarse calcification in the left lobe of liver. The gallbladder is unremarkable with no evidence of radiopaque gallstones, gallbladder wall thickening, or obvious pericholecystic inflammatory changes. PANCREAS: Unremarkable. SPLEEN: Unremarkable. ADRENAL GLANDS: Unremarkable. KIDNEYS AND URETERS: The kidneys are normal in size, shape, and attenuation. Stable midpole cyst left kidney measuring 2.3 cm. No hydronephrosis, hydroureter, or calculi seen. No perinephric stranding. BLADDER: Wasserman catheter within the bladder. The bladder is empty. ANTERIOR ABDOMINAL WALL: Gastrointestinal Tract: There is a ventral wall hernia. Defect in the anterior abdominal wall measures 7 cm transverse. There is fat and a portion of the transverse colon herniating through the defect. This does not obstruct the colon, however. The herniated fat pocket measures approximately 8.8 x 2.7 x 5 cm. No acute change of the bowel. No bowel obstruction. No bowel wall thickening or edema. Moderate amount of scattered stool in the colon. The appendix is normal. The small-bowel loops are normal. There is a gastric band present in the right upper quadrant. LYMPH NODES: Normal. VASCULAR: Atherosclerotic vascular wall calcifications of aorta and iliac vessels without aneurysm. PELVIC VISCERA: Status post hysterectomy. OSSEOUS STRUCTURES: Degenerative spondylosis spine with orthopedic hardware fusing the lower lumbar spine. Advanced degenerative change of the hips with [id number] contact of the femoral head and acetabulum with subchondral cystic changes and spurring. IMPRESSION: 1. Ventral wall hernia. This has a nonobstructive loop of transverse colon. No acute change of the bowel. 2. Multiple hypodense lesions of liver unchanged since CAT scan 12/31/2015, hepatic cysts. Laboratory Tests 09/16 09/15 0640 1440 Chemistry Sodium (137 - 145 mmol/L) 143 Potassium (3.5 - 5.1 mmol/L) 4.2 Chloride (98 - 107 mmol/L) 103 Carbon Dioxide (22 - 30 mmol/L) 25 Anion Gap (5 - 16) 14 BUN (7 - 17 mg/dL) 17 Creatinine (0.5 - 1.0 mg/dL) 0.8 Estimated GFR (>60 ml/min) > 60 BUN/Creatinine Ratio (7 - 25 %) 21.3 Hematology CBC w Diff NO MAN DIFF REQ NO MAN DIFF REQ WBC (4.8 - 10.8 /CUMM) 5.6 5.7 RBC (4.20 - 5.40 /CUMM) 3.86 L 3.92 L Hgb (12.0 - 16.0 G/DL) 11.5 L 11.6 L Hct (37 - 47 %) 33.8 L 34.3 L MCV (81.0 - 99.0 FL) 87.5 87.6 MCH (27.0 - 31.0 PG) 29.7 29.5 MCHC (33.0 - 37.0 G/DL) 34.0 33.6 RDW (11.5 - 14.5 %) 13.9 14.1 Plt Count (130 - 400 /CUMM) 210 213 MPV (7.4 - 10.4 FL) 9.4 9.4 Gran % (42.2 - 75.2 %) 73.3 82.6 H Lymphocytes % (20.5 - 51.1 %) 17.0 L 12.5 L Monocytes % (1.7 - 9.3 %) 7.2 4.5 Eosinophils % (0 - 5 %) 2.2 0.2 Basophils % (0.0 - 2.0 %) 0.3 0.2 Absolute Granulocytes (1.4 - 6.5 /CUMM) 4.1 4.7 Absolute Lymphocytes (1.2 - 3.4 /CUMM) 1.0 L 0.7 L Absolute Monocytes (0.10 - 0.60 /CUMM) 0.4 0.3 Absolute Eosinophils (0.0 - 0.7 /CUMM) 0.1 0 Absolute Basophils (0.0 - 0.2 /CUMM) 0 0 16 09/15 1200 0622 Chemistry Sodium (137 - 145 mmol/L) Cancelled 141 Potassium (3.5 - 5.1 mmol/L) Cancelled 4.3 Chloride (98 - 107 mmol/L) Cancelled 107 Carbon Dioxide (22 - 30 mmol/L) Cancelled 22 Anion Gap (5 - 16) Cancelled 12 BUN (7 - 17 mg/dL) Cancelled 25 H Creatinine (0.5 - 1.0 mg/dL) Cancelled 0.9 Estimated GFR (>60 ml/min) > 60 BUN/Creatinine Ratio (7 - 25 %) Cancelled 27.8 H Disposition Summary Disposition Principal Diagnosis: Acute renal failure Additional Diagnosis: * Metabolic encephalopathy * Rsolved Acute renal failure now resolving prob related to NSAID and dehydration due to poor po intake compounded by arb use * Chronic pain syndrome on significant amount of narcotics, patient has also been on medical marijuana * Recent Acute stroke with retinal artery branch occlusion consistant with an embolic stroke, now no other area of stroke noted, with negative MRI, negative carotid ultrasound, no evidence of atrial fibrillation * Previous History of significant smoking with all the risks for atheroembolic disease * IHD with previous stents with previous vifib arrest, now stable and recent stress test neg for active ischemia * CHronic low back pain with severe lumbar disc disease with multiple surg in the past on high dose narcotics and medical marijuana * Hypothyroidism/hypertension/hyperlipidemia appears to be stable * Ischemic heart disease appears to be stable * SIg Lizeth on cpap and compliant * Morbid obesity * Small airway disease * OSteopenia with vit d def with previous work up for hypercalcemia neg with normal pth Discharge Disposition: home or self care Discharge Instructions General Discharge Information Code Status: Full Code Patient's Diet: low fat diet Patient's Activity: as rosa Follow-Up Instructions/Appts: With me and ortho eval Medications at Discharge Discharge Medications: Stop taking the following medications: Aspirin (Aspirin*) 81 MG TAB.CHEW ORAL DAILY Cyclobenzaprine HCl (Cyclobenzaprine HCl) 10 MG TABLET ORAL DAILY Continue taking these medications: Ranitidine HCl (Heartburn Relief) 150 MG TABLET 1 Tablet ORAL DAILY as needed for heartburn Comments: NOT GIVEN AT HOSPITAL Levothyroxine Sodium (Levothyroxine Sodium) 100 MCG TABLET 1 Tablet ORAL DAILY Comments: Last Taken:09/16/17 Time:0537 Fenofibrate Nanocrystallized (Fenofibrate) 145 MG TABLET 1 Tablet ORAL DAILY Comments: NOT GIVEN IN HOSPITAL Rosuvastatin Calcium (Crestor) 40 MG TABLET 1 Tablet ORAL DAILY Comments: NOT GIVEN AT HOSPITAL Ezetimibe (Zetia) 10 MG TABLET 1 Tablet ORAL DAILY Comments: NOT GIVEN AT HOSPITAL Gabapentin (Neurontin) 300 MG CAPSULE 1 Capsule ORAL THREE TIMES DAILY Comments: NOT GIVEN IN HOSPITAL Metoprolol Tartrate (Lopressor) 50 MG TABLET 1 Tablet ORAL TWICE DAILY Comments: Last Taken:09/16/17 Time:0749 Amlodipine Besylate (Amlodipine Besylate) 10 MG TABLET 1 Tablet ORAL DAILY Comments: Last Taken:09/16/17 Time:0749 Valsartan (Valsartan) 320 MG TABLET 1 Tablet ORAL DAILY Instructions: Take 1/2 tab on 09/17, 09/18 then resume as previously prescribed Comments: NOT GIVEN IN HOSPITAL Cholecalciferol (Vitamin D3) (Vitamin D) 1,000 UNIT TABLET 2 Tablet ORAL DAILY Comments: NOT GIVEN IN HOSPITAL Morphine Sulfate (Ms Contin) 30 MG TABLET.ER 1 Tablet ORAL DAILY Instructions: Take once daily at noon Comments: Last Taken:09/16/17 Time:0750 Oxycodone HCl (Oxycodone HCl) 10 MG TABLET 1 Tablet ORAL 4 times daily as needed Comments: Last Taken:09/16/17 Time:1255 Bisacodyl (Dulcolax) 5 MG TABLET. 1 Tablet ORAL DAILY Comments: NOT GIVEN AT HOSPITAL Clopidogrel Bisulfate (Plavix) 75 MG TABLET 75 Milligram ORAL DAILY Qty = 30 Instructions: . Comments: Last Taken:09/08/17 Time:1000 Copies To: Loyda MYLES,Noah Mann
== END 2017-09-16 15:35 | DRG 683 ==
LOC: ERH 12:25 → ERHI 14:54 → 1NO 14:54 → CANRESERV 15:49 → ENRESERV 15:49 → EDBEDREQ 16:26 → ERHI 09-14 08:31 → ENRESERV 09-14 12:09 → ENTRNSPT 09-14 13:36 → EDTRNSPT 09-14 13:41 → CMPTRNSPT 09-14 14:11 → 1NO 09-14 14:36 → ENPENDDIS 09-16 14:24 → ENTRNSPT 09-16 15:21 → 1NO 09-16 15:35 → EDTRNSPT 09-16 15:45 → EDTRNSPTSTS 09-16 15:45 → CMPTRNSPT 09-16 16:01
PROVIDERS: Physician Assistant Medical; Student in an Organized Health Care Education/Training Program
DX: N17.9 Acute kidney failure, unspecified (principal); E87.4 Mixed disorder of acid-base balance; I42.9 Cardiomyopathy, unspecified; E66.01 Morbid (severe) obesity due to excess calories; Z68.41 Body mass index [BMI] 40.0-44.9, adult; R44.3 Hallucinations, unspecified; H34.239 Retinal artery branch occlusion, unspecified eye; I25.10 Atherosclerotic heart disease of native coronary artery without angina pectoris; Z95.5 Presence of coronary angioplasty implant and graft; F12.90 Cannabis use, unspecified, uncomplicated; I25.9 Chronic ischemic heart disease, unspecified; G47.33 Obstructive sleep apnea (adult) (pediatric); M85.80 Other specified disorders of bone density and structure, unspecified site; E86.0 Dehydration; R41.82 Altered mental status, unspecified; E78.5 Hyperlipidemia, unspecified; I25.2 Old myocardial infarction; Z91.041 Radiographic dye allergy status; Z88.8 Allergy status to other drugs, medicaments and biological substances; Z91.048 Other nonmedicinal substance allergy status; Z79.82 Long term (current) use of aspirin; E03.9 Hypothyroidism, unspecified; R73.03 Prediabetes; E55.9 Vitamin D deficiency, unspecified; K21.9 Gastro-esophageal reflux disease without esophagitis; M54.89 Other dorsalgia; M51.26 Other intervertebral disc displacement, lumbar region; Z85.9 Personal history of malignant neoplasm, unspecified; Z82.49 Family history of ischemic heart disease and other diseases of the circulatory system; I13.10 Hypertensive heart and chronic kidney disease without heart failure, with stage 1 through stage 4 chronic kidney disease, or unspecified chronic kidney disease; N18.9 Chronic kidney disease, unspecified; Z87.891 Personal history of nicotine dependence; Z86.73 Personal history of transient ischemic attack (TIA), and cerebral infarction without residual deficits; K43.9 Ventral hernia without obstruction or gangrene; F11.90 Opioid use, unspecified, uncomplicated
CPT/HCPCS: 1NP; 70551; 84133; 84300; ERO; 36415; 71045; 74176; 80307; 81001; 82436; 82570; 87086; 93005; 93010; 95816; 96361; 96374; G0480; J0696; J1644; J3101; J3490; J7042